=== PATIENT | female | born 1950 | race African-American/Black ===

== ENCOUNTER 2018-01-21 01:47 | Inpatient (IN) | payer MEDICARE ==
[2018-01-21] VITALS (9 sets, daily range): BP systolic 137–156; BP diastolic 54–92
[~2018-01-21] VITALS: Ht 175.3 cm; Wt 53.1 kg
--- NOTE | 2018-01-21 02:26 | Emergency Room Report ---
History of Present Illness General Chief Complaint: Altered Level of Consciousness Source: Patient Present Illness HPI 67-year-old female, history of Alzheimer disease, hypertension,? Psych history on Haldol, coming from home, brought by EMS, for being more altered than normal. EMS states that she has been more altered than her normal for 24 hours. Unknown baseline. She is currently awake alert oriented to person and place, does not know the time, and does not know why she is here. She is a poor historian. She keeps saying "I am dying". Denies any pain at this time Allergies: Coded Allergies: No Known Allergies (Unverified , 01/21/18) Patient History Past Medical History: see triage record Past Surgical History: none Pertinent Family History: none Last Menstrual Period: na Reviewed Nursing Documentation: PMH: Agreed, PSxH: Agreed Nursing Documentation-PMH Hx Diabetes: Yes History Of Psychiatric Problem: Yes - alzheimers Review of Systems All Other Systems: negative except mentioned in HPI Physical Exam Vital Signs Date Time Temp Pulse Resp B/P (MAP) Pulse Ox O2 Delivery O2 Flow Rate FiO2 01/21/18 01:49 97.5 116 18 142/59 100 Room Air 97.5 Sp02 EP Interpretation: reviewed, normal General Appearance: alert, mild distress, other - aox2 and confused. not in pain. Head: normocephalic, atraumatic Eyes: bilateral eye normal inspection, bilateral eye PERRL, bilateral eye EOMI ENT: normal ENT inspection, normal pharynx, normal voice, moist mucus membranes Neck: normal inspection, full range of motion, supple Respiratory: normal inspection, lungs clear, normal breath sounds, no respiratory distress, no retraction, no wheezing, speaking full sentences, chest symmetrical Cardiovascular #1: normal inspection, regular rate, rhythm, normal capillary refill Cardiovascular #2: 2+ radial (R), 2+ radial (L) Gastrointestinal: normal inspection, non tender, soft, non-distended, no guarding Musculoskeletal: normal inspection, back normal, normal range of motion, non- tender Neurologic: other - aox2, moves ext spont Psychiatric: other - anxious, confused Skin: normal inspection, normal color, no rash, warm/dry, well hydrated, normal turgor Medical Decision Making Diagnostic Impression: Primary Impression: Altered level of consciousness Additional Impression: Tachycardia ER Course 67-year-old female be more altered than her normal DDX: Infection, UTI, pneumonia, dehydration, electrolyte disturbance, progression of Alzheimer's disease Plan: Obtain labs, ua, EKG, CXR ER course: Patient has been monitored during ED stay, HD stable Patient has been very conversive during ED stay,talking to herself got 1L NS CT head neg Disposition: Patient is to be xferred to outside hosp [facility] hospitalist. Dr Godoy Please note that this Emergency Department Report was dictated using Globitelorchestra conductor technology software, occasionally this can lead to erroneous entry secondary to interpretation by the dictation equipment. EKG Diagnostic Results EP Interpretation: Yes Rate: tachy Rhythm: NSR ST Segments: No acute changes ASA given to patient: No Rhythm Strip EP Interpretation: Yes Rate: 122 Rhythm: NSR, no PVCs, no ectopy Chest X-ray CXR: Ordered: Yes 1 view Indication: Altered mental status EP interpretation: Yes Interpretation: No consolidation, no effusion, no PTX, no acute cardiopulmonary disease Impression: No acute disease Electronically signed by Bertrand Lopez MD Laboratory Tests Test 01/21/18 02:15 01/21/18 03:05 White Blood Count 7.0 K/UL (4.8-10.8) Red Blood Count 4.52 M/UL (4.20-5.40) Hemoglobin 12.5 G/DL (12.0-16.0) Hematocrit 38.4 % (37.0-47.0) Mean Corpuscular Volume 85 FL (80-99) Mean Corpuscular Hemoglobin 27.6 PG (27.0-31.0) Mean Corpuscular Hemoglobin Concent 32.5 G/DL (32.0-36.0) Red Cell Distribution Width 12.9 % (11.6-14.8) Platelet Count 203 K/UL (150-450) Mean Platelet Volume 9.1 FL (6.5-10.1) Neutrophils (%) (Auto) 59.1 % (45.0-75.0) Lymphocytes (%) (Auto) 27.2 % (20.0-45.0) Monocytes (%) (Auto) 12.7 % (1.0-10.0) H Eosinophils (%) (Auto) 0.0 % (0.0-3.0) Basophils (%) (Auto) 1.0 % (0.0-2.0) Sodium Level 141 MMOL/L (136-145) Potassium Level 3.3 MMOL/L (3.5-5.1) L Chloride Level 102 MMOL/L (98-107) Carbon Dioxide Level 27 MMOL/L (21-32) Anion Gap 13 mmol/L (5-15) Blood Urea Nitrogen 34 mg/dL (7-18) H Creatinine 1.4 MG/DL (0.55-1.30) H Estimate Glomerular Filtration Rate 45.8 mL/min (>60) Glucose Level 107 MG/DL (74-106) H Calcium Level 10.5 MG/DL (8.5-10.1) H Total Bilirubin 0.4 MG/DL (0.2-1.0) Aspartate Amino Transferase (AST) 19 U/L (15-37) Alanine Aminotransferase (ALT) 29 U/L (12-78) Alkaline Phosphatase 51 U/L (46-116) Troponin I 0.000 ng/mL (0.000-0.056) Pro-B-Type Natriuretic Peptide 369 pg/mL (0-125) H Total Protein 7.9 G/DL (6.4-8.2) Albumin 4.3 G/DL (3.4-5.0) Globulin 3.6 g/dL Albumin/Globulin Ratio 1.2 (1.0-2.7) Urine Color Yellow Urine Appearance Clear Urine pH 6 (4.5-8.0) Urine Specific [place] 1.010 (1.005-1.035) Urine Protein Negative (NEGATIVE) Urine Glucose (UA) Negative (NEGATIVE) Urine Ketones 1+ (NEGATIVE) H Urine Occult Blood Negative (NEGATIVE) Urine Nitrite Negative (NEGATIVE) Urine Bilirubin Negative (NEGATIVE) Urine Urobilinogen Normal MG/DL (0.0-1.0) Urine Leukocyte Esterase 1+ (NEGATIVE) H Urine RBC 0 /HPF (0 - 2) Urine WBC 0-2 /HPF (0 - 2) Urine Squamous Epithelial Cells Few /LPF (NONE/OCC) Urine Bacteria None /HPF (NONE) CT/MRI/US Diagnostic Results CT/MRI/US Diagnostic Results : Imaging Test Ordered: CT head Impression negative for acute findings Last Vital Signs Date Time Temp Pulse Resp B/P (MAP) Pulse Ox O2 Delivery O2 Flow Rate FiO2 01/21/18 01:49 97.5 116 18 142/59 100 Room Air 97.5 Disposition: XFER SHT-TRM HOSP Condition: Serious Referrals: [facility],REFERRING (PCP) Bertrand Lopez M.D. Jan 21, 2018 02:26
[2018-01-21 02:32] LABS: HEMATOCRIT 38.4 % (37.0-47.0); HEMOGLOBIN 12.5 G/DL (12.0-16.0); LYMPHOCYTES % (AUTO) 27.2 % (20.0-45.0); MEAN CORPUSCULAR VOLUME 85 FL (80-99); MONOCYTES % (AUTO) 12.7 % (1.0-10.0); NEUTROPHILS % (AUTO) 59.1 % (45.0-75.0); PLATELET COUNT 203 K/UL (150-450); RED BLOOD COUNT 4.52 M/UL (4.20-5.40); RED CELL DISTRIBUTION WIDTH 12.9 % (11.6-14.8)
[2018-01-21 02:41] LABS: ANION GAP 13 mmol/L (5-15); BLOOD UREA NITROGEN 34 mg/dL (7-18); CALCIUM 10.5 MG/DL (8.5-10.1); CARBON DIOXIDE 27 MMOL/L (21-32); CHLORIDE 102 MMOL/L (98-107); CREATININE 1.4 MG/DL (0.55-1.30); POTASSIUM 3.3 MMOL/L (3.5-5.1); SODIUM 141 MMOL/L (136-145)
[2018-01-21 02:52] LABS: ALANINE AMINOTRANSFERASE 29 U/L (12-78); ALBUMIN 4.3 G/DL (3.4-5.0); ALBUMIN/GLOBULIN RATIO 1.2 (1.0-2.7); ALKALINE PHOSPHATASE 51 U/L (46-116); ASPARTATE AMINO TRANSFERASE 19 U/L (15-37); BILIRUBIN,TOTAL 0.4 MG/DL (0.2-1.0)
[2018-01-21] MEDS ORDERED: LORazepam Inj 2mg/ml 1ml IV ONE ×3 (03:15→06:15)
[2018-01-21 03:20] LABS: APPEARANCE,URINE CLEAR; BILIRUBIN, URINE NEGATIVE (NEGATIVE); GLUCOSE, URINE (UA) NEGATIVE (NEGATIVE); KETONES,URINE 1+ (NEGATIVE); NITRITE,URINE NEGATIVE (NEGATIVE); PH,URINE 6 (4.5-8.0); PROTEIN,URINE NEGATIVE (NEGATIVE); UROBILINOGEN,URINE NORMAL MG/DL (0.0-1.0)
[2018-01-21 03:27] LABS: COLOR,URINE YELLOW; LEUKOCYTE ESTERASE ,URINE 1+ (NEGATIVE)
[2018-01-21] MEDS ORDERED: Haloperidol 5mg/ml Inj IM ONE (04:30)
[2018-01-21] MEDS ORDERED: NORVASC5 MG ORAL (05:54)
[2018-01-21] MEDS ORDERED: LYRICA75 M1 ORAL (05:54)
[2018-01-21] MEDS ORDERED: BENZTROPINE MESY2 MG ORAL (05:54)
[2018-01-21] MEDS ORDERED: COGENTIN1 MG ORAL (05:54)
[2018-01-21] MEDS ORDERED: ZOLOFT100 MG ORAL (05:54)
[2018-01-21] MEDS ORDERED: HALOPERIDOL1 MG ORAL (05:54)
[2018-01-21] MEDS ORDERED: MULTIVITAMINS1 EAC2 ORAL (05:54)
[2018-01-21] MEDS ORDERED: ATIVAN1 MG ORAL (05:54)
[2018-01-21] MEDS ORDERED: NAPROSYN500 M1 ORAL (05:54)
[2018-01-21] MEDS ORDERED: ACETAMINOPHEN-1 EAC1 ORAL (05:54)
[2018-01-21] MEDS ORDERED: VITAMIN D31000 UNI2 PO (05:54)
[2018-01-21] MEDS ORDERED: XALATAN2.5 ML BOTH EYES (05:54)
[2018-01-21] MEDS ORDERED: MIRALAX17 G2 ORAL (05:54)
[2018-01-21] MEDS ORDERED: OXYBUTYNIN CHLOR5 M1 ORAL (05:54)
[2018-01-21] MEDS ORDERED: KENALOG 0.025%15 GM APPLIC (05:54)
[2018-01-21] MEDS ORDERED: FOSAMAX70 MG ORAL (05:54)
[2018-01-21] MEDS ORDERED: DiphenhydrAMINE 50mg/ml Inj IVP ONE (06:15)
[2018-01-21] MEDS ORDERED: Tylenol #3 tab (300mg/30mg) ORAL PRN (10:00)
[2018-01-21] MEDS ORDERED: Miralax 17gm pkt ORAL PRN (10:00)
[2018-01-21] MEDS: Naproxen 500mg tab ORAL SCH ×2 (10:00→16:47)
--- NOTE | 2018-01-21 10:22 | Diagnostic Imaging Report ---
Indication: Altered mental status Technique: Contiguous 5 mm thick transaxial imaging of the head obtained in a Siemens Sensation [address] scanner. Soft tissue and bone windows generated. Automatic Exposure Control was utilized. Total Dose length Product (DLP): 1386.[address] Dose Index Volume (CTDIvol): 70.38 mGy Comparison: none Findings: The size and configuration of the cortical sulci, basal cisterns, and ventricles are within normal limits for age. There is no mass effect, midline shift, or edema identified. There is no evidence of acute hemorrhage or abnormal intra-axial or extra-axial fluid collections. The bones and soft tissues are unremarkable. Impression: No mass effect, edema or acute bleed. The CT scanner at [facility] is accredited by the [employer] and the scans are performed using dose optimization techniques as appropriate to a performed exam including Automatic Exposure control.
--- NOTE | 2018-01-21 10:46 | Diagnostic Imaging Report ---
Indication: Dyspnea Comparison: None A single view chest radiograph was obtained. Findings: Cardiomediastinal appearance is within normal limits for age. Chest patient is noted in the left hilum consistent with old granulomatous disease. Pulmonary vascularity is appropriate. The diaphragmatic contour is smooth and costophrenic angles are sharp. No pleural effusions are identified. The bones are osteopenic. Impression: No acute findings
[2018-01-21] MEDS: NovoLOG Insulin Flexpen SUBQ SCH ×3 (11:21→22:16)
--- NOTE | 2018-01-21 11:59 | Neurology Progress Note ---
Objective Physical Exam Last Vital Signs Date Time Temp Pulse Resp B/P (MAP) Pulse Ox O2 Delivery O2 Flow Rate FiO2 01/21/18 11:19 107 150/92 01/21/18 09:06 98.2 19 100 Room Air 98.2 Laboratory Tests Test 01/21/18 02:15 01/21/18 03:05 01/21/18 11:10 White Blood Count 7.0 K/UL (4.8-10.8) Red Blood Count 4.52 M/UL (4.20-5.40) Hemoglobin 12.5 G/DL (12.0-16.0) Hematocrit 38.4 % (37.0-47.0) Mean Corpuscular Volume 85 FL (80-99) Mean Corpuscular Hemoglobin 27.6 PG (27.0-31.0) Mean Corpuscular Hemoglobin Concent 32.5 G/DL (32.0-36.0) Red Cell Distribution Width 12.9 % (11.6-14.8) Platelet Count 203 K/UL (150-450) Mean Platelet Volume 9.1 FL (6.5-10.1) Neutrophils (%) (Auto) 59.1 % (45.0-75.0) Lymphocytes (%) (Auto) 27.2 % (20.0-45.0) Monocytes (%) (Auto) 12.7 % (1.0-10.0) H Eosinophils (%) (Auto) 0.0 % (0.0-3.0) Basophils (%) (Auto) 1.0 % (0.0-2.0) Sodium Level 141 MMOL/L (136-145) Potassium Level 3.3 MMOL/L (3.5-5.1) L Chloride Level 102 MMOL/L (98-107) Carbon Dioxide Level 27 MMOL/L (21-32) Anion Gap 13 mmol/L (5-15) Blood Urea Nitrogen 34 mg/dL (7-18) H Creatinine 1.4 MG/DL (0.55-1.30) H Estimat Glomerular Filtration Rate 45.8 mL/min (>60) Glucose Level 107 MG/DL (74-106) H Calcium Level 10.5 MG/DL (8.5-10.1) H Total Bilirubin 0.4 MG/DL (0.2-1.0) Aspartate Amino Transf (AST/SGOT) 19 U/L (15-37) Alanine Aminotransferase (ALT/SGPT) 29 U/L (12-78) Alkaline Phosphatase 51 U/L (46-116) Troponin I 0.000 ng/mL (0.000-0.056) 0.011 ng/mL (0.000-0.056) Pro-B-Type Natriuretic Peptide 369 pg/mL (0-125) H Pending Total Protein 7.9 G/DL (6.4-8.2) Albumin 4.3 G/DL (3.4-5.0) Globulin 3.6 g/dL Albumin/Globulin Ratio 1.2 (1.0-2.7) Urine Color Yellow Urine Appearance Clear Urine pH 6 (4.5-8.0) Urine Specific [place] 1.010 (1.005-1.035) Urine Protein Negative (NEGATIVE) Urine Glucose (UA) Negative (NEGATIVE) Urine Ketones 1+ (NEGATIVE) H Urine Occult Blood Negative (NEGATIVE) Urine Nitrite Negative (NEGATIVE) Urine Bilirubin Negative (NEGATIVE) Urine Urobilinogen Normal MG/DL (0.0-1.0) Urine Leukocyte Esterase 1+ (NEGATIVE) H Urine RBC 0 /HPF (0 - 2) Urine WBC 0-2 /HPF (0 - 2) Urine Squamous Epithelial Cells Few /LPF (NONE/OCC) Urine Bacteria None /HPF (NONE) Impression/Recommendations Recommendations #[id number] JOSE MARIA RAYA Jan 21, 2018 11:59
[2018-01-21] MEDS: Oxybutynin 5mg tab ORAL SCH ×2 (13:00→21:47)
--- NOTE | 2018-01-21 15:35 | History & Physical ---
History and Physical History & Physicial patient is seen and examined. Dictation completed Elvis Lofton MD Jan 21, 2018 15:35
--- NOTE | 2018-01-21 18:36 | Cardiology Progress Note ---
Assessment/Plan Assessment/Plan The patient is seen and examined, full consult note will be dictated shortly. Objective Last 24 Hour Vital Signs Date Time Temp Pulse Resp B/P (MAP) Pulse Ox O2 Delivery O2 Flow Rate FiO2 01/21/18 17:46 98.2 01/21/18 16:47 98.2 01/21/18 16:00 98.2 110 19 151/80 100 Room Air 98.2 01/21/18 15:12 114 01/21/18 12:00 98.0 112 19 156/69 100 Room Air 98.0 01/21/18 11:40 106 01/21/18 11:19 107 150/92 01/21/18 09:07 107 01/21/18 09:06 98.2 114 19 150/92 100 Room Air 98.2 01/21/18 08:00 98.2 114 19 150/92 100 Room Air 98.2 01/21/18 07:15 98.2 100 19 142/75 100 Room Air 98.2 01/21/18 06:43 107 24 137/61 100 Room Air 01/21/18 05:00 98.7 113 23 146/72 100 Room Air 98.7 01/21/18 03:30 116 21 145/58 100 Room Air 01/21/18 02:00 98.8 117 25 148/54 100 Room Air 98.8 01/21/18 01:49 97.5 116 18 142/59 100 Room Air 97.5 Laboratory Tests Test 01/21/18 02:15 01/21/18 03:05 01/21/18 11:10 White Blood Count 7.0 K/UL (4.8-10.8) Red Blood Count 4.52 M/UL (4.20-5.40) Hemoglobin 12.5 G/DL (12.0-16.0) Hematocrit 38.4 % (37.0-47.0) Mean Corpuscular Volume 85 FL (80-99) Mean Corpuscular Hemoglobin 27.6 PG (27.0-31.0) Mean Corpuscular Hemoglobin Concent 32.5 G/DL (32.0-36.0) Red Cell Distribution Width 12.9 % (11.6-14.8) Platelet Count 203 K/UL (150-450) Mean Platelet Volume 9.1 FL (6.5-10.1) Neutrophils (%) (Auto) 59.1 % (45.0-75.0) Lymphocytes (%) (Auto) 27.2 % (20.0-45.0) Monocytes (%) (Auto) 12.7 % (1.0-10.0) H Eosinophils (%) (Auto) 0.0 % (0.0-3.0) Basophils (%) (Auto) 1.0 % (0.0-2.0) Sodium Level 141 MMOL/L (136-145) Potassium Level 3.3 MMOL/L (3.5-5.1) L Chloride Level 102 MMOL/L (98-107) Carbon Dioxide Level 27 MMOL/L (21-32) Anion Gap 13 mmol/L (5-15) Blood Urea Nitrogen 34 mg/dL (7-18) H Creatinine 1.4 MG/DL (0.55-1.30) H Estimat Glomerular Filtration Rate 45.8 mL/min (>60) Glucose Level 107 MG/DL (74-106) H Calcium Level 10.5 MG/DL (8.5-10.1) H Total Bilirubin 0.4 MG/DL (0.2-1.0) Aspartate Amino Transf (AST/SGOT) 19 U/L (15-37) Alanine Aminotransferase (ALT/SGPT) 29 U/L (12-78) Alkaline Phosphatase 51 U/L (46-116) Troponin I 0.000 ng/mL (0.000-0.056) 0.011 ng/mL (0.000-0.056) Pro-B-Type Natriuretic Peptide 369 pg/mL (0-125) H 621 pg/mL (0-125) H Total Protein 7.9 G/DL (6.4-8.2) Albumin 4.3 G/DL (3.4-5.0) Globulin 3.6 g/dL Albumin/Globulin Ratio 1.2 (1.0-2.7) Urine Color Yellow Urine Appearance Clear Urine pH 6 (4.5-8.0) Urine Specific [place] 1.010 (1.005-1.035) Urine Protein Negative (NEGATIVE) Urine Glucose (UA) Negative (NEGATIVE) Urine Ketones 1+ (NEGATIVE) H Urine Occult Blood Negative (NEGATIVE) Urine Nitrite Negative (NEGATIVE) Urine Bilirubin Negative (NEGATIVE) Urine Urobilinogen Normal MG/DL (0.0-1.0) Urine Leukocyte Esterase 1+ (NEGATIVE) H Urine RBC 0 /HPF (0 - 2) Urine WBC 0-2 /HPF (0 - 2) Urine Squamous Epithelial Cells Few /LPF (NONE/OCC) Urine Bacteria None /HPF (NONE) TAURUS VASQUEZ Jan 21, 2018 18:36
[2018-01-21] MEDS ORDERED: Flu Vaccine Quadrivalent 0.5ml IM ONE (20:00)
--- NOTE | 2018-01-21 20:45 | Consultation ---
DATE OF CONSULTATION: 01/21/2018 NEUROLOGICAL CONSULTATION CONSULTING PHYSICIAN: Guillermo Burns M.D. REQUESTING PHYSICIAN: Will Donohue M.D. HISTORY OF PRESENT ILLNESS: The patient is a 67 years old female, resident of nursing care facility, was brought to this hospital after she was noted to be being more altered than normal. According to the family, the patient has been suffering from dementia, but in the last 24 hours, she became more confused, more altered. She did not complain of any chest pains or shortness of breath. No nausea or vomiting. In the field, her blood pressure 140/80. Upon arrival to the hospital, heart rate was 116 but, she was afebrile with blood pressure 142/59. The patient described as being alert, oriented to name and place, but not knowing the time and she was quite poor historian. She keeps repeating that she is dying. Her EKG normal sinus rhythm, no PVC, no ectopy noted. Chest x-ray, no acute disease. Laboratory work was obtained, this revealed a normal CBC study, but chemistry panel with calcium 10.5, BUN 34, and creatinine 1.4 with BNP of 369. Normal troponin. Urinalysis, 1+ leukocyte esterase. Imaging studies included CT of the brain and this revealed no acute intracranial abnormalities. Following admission until present, the patient very confused, disoriented, refusing meals, and continued to be with urinary incontinence. PAST MEDICAL HISTORY: Incomplete. Apparently, the patient has a history of hypertension, hyperlipidemia, behavioral abnormalities, and urinary incontinence. MEDICATIONS: Treatment list prior to admission included Tylenol No. 3 p.r.n. but also Fosamax, Norvasc, Cogentin 2 mg b.i.d., vitamin D, Haldol 2 mg daily, Ativan 1 mg b.i.d., Naprosyn 500 mg b.i.d., oxybutynin, MiraLAX, Lyrica 75 mg daily, and Zoloft. ALLERGIES: None reported. SOCIAL HISTORY: No evidence of alcohol or drug abuse. Nonsmoker. PHYSICAL EXAMINATION: GENERAL: This is a well-developed and well-nourished elderly female, lying in bed with a sitter at bedside. VITAL SIGNS: Now include blood pressure 150/92, heart rate of 107, and she is afebrile. HEENT: Head is normocephalic. There is no evidence of trauma. Eyes, ears, and throat are clear. NECK: Slightly rigid. The patient is maintaining somewhat flexed neck . EXTREMITIES: Upper and lower extremities without clubbing, cyanosis, or edema. Peripheral pulses 1+ symmetric. MENTAL STATUS: The patient is alert, but has poor attention. She was able to give her name, but not age, place, or time. She was unable to provide with any medical history. She was confused and disoriented. She was able to follow simple commands. CRANIAL NERVE II: Pupils both responding to light and accommodation. Extraocular movements intact. No nystagmus. CRANIAL NERVE V: Normal corneal responses. CRANIAL NERVE VII: No facial asymmetry. CRANIAL NERVE VIII: Grossly normal hearing. CRANIAL NERVE IX THROUGH XII: Within normal limits. MOTOR EXAMINATION: Diffuse rigidity, but strength appears normal, 5/5 in all extremities. There is a fine resting tremor of both hands. Deep tendon reflexes 1+ symmetric with downgoing toes on both sides. SENSORY EXAMINATION: Normal to pinprick and light touch. GAIT: Not tested. GENITOURINARY: The patient has urinary incontinence. IMPRESSION: 1. Senile dementia with behavioral abnormalities, advanced. 2. Hypertension. 3. Sinus tachycardia. RECOMMENDATIONS: The patient will continue with psychiatric treatment. The patient to be observed for any paroxysmal activities. There is no evidence of lateralizing neurological deficit. No evidence of seizures or stroke at this time noted. We will obtain physical therapy for mobility protocol. Laboratory work will include B12, folate, thyroid function, HEATHER, and sedimentation rate. Recheck renal function. Continue with p.o. hydration. Thank you for allowing me to see this interesting patient in neurological consultation. Guillermo Burns M.D. DR: Nikki JOB#: [id number] CC:
[2018-01-21] MEDS: Latanoprost 0.005% Opth 2.5ml Soln BOTH EYES SCH (21:00)
--- NOTE | 2018-01-21 21:30 | History and Physical Report ---
DATE OF ADMISSION: 01/21/2018 SOURCE OF INFORMATION: EMR. HISTORY OF PRESENT ILLNESS: The patient is a 67-year-old female, presented with the change in mental status. At the time of evaluation, the patient is not talking in full sentences, although she is awake and she appears comfortable. Based on the review of the emergency room documentation, the patient was transferred by the EMS regarding the change in her mental status. Baseline of the patient is unknown. At the time of evaluation, the patient is just talking in limited words. PAST MEDICAL HISTORY: Past medical history including, but not limited to, dementia, Alzheimer's type; hypertension and psychiatric history. PAST SURGICAL HISTORY: Denies. MEDICATIONS: Current hospital medications including, but not limited to [place], alendronate, amlodipine, Cogentin, lorazepam, naproxen, gabapentin and sertraline. ALLERGIES: NKDA. FAMILY HISTORY: Reviewed, noncontributory. REVIEW OF SYSTEMS: Unobtainable, please see the history of present illness. PHYSICAL EXAMINATION: VITAL SIGNS: Blood pressure 150/80, pulse oximetry 98% on room air, temperature 98.2 degrees and pulse rate 100-115. HEAD AND NECK: Atraumatic and normocephalic. CHEST: Clear to auscultation. No wheezing. No crackles. ABDOMEN: Soft. No organomegaly. No tenderness. MUSCULOSKELETAL: Atrophied musculatures. NEUROLOGY: Cranial nerves intact. Poor historian, AO x1. LABORATORY AND DIAGNOSTIC DATA: Labs dated 01/21/2018 shows WBC 7, hemoglobin of 12.5, and platelets 203,000. Sodium 141, potassium 3.3, BUN 34, and creatinine 1.4. Troponin times x2 negative. BNP 620. Urinalysis unremarkable. ASSESSMENT: 1. Encephalopathy. 2. Dementia - Alzheimer's type. 3. Renal failure - age indeterminate. 4. Hypercalcemia. 5. Abnormal blood sugar. 6. Hypokalemia. 7. Abnormal serum BNP. 8. Deconditioning. 9. Psychiatric disorder. PLAN OF CARE: We consulted the psychiatrist, neurologist and bean roaster, Dr. Tucker. We will hold on the psychotropic medication at this time. The patient's brain CT scan is unremarkable. Elvis Lofton M.D. DR: APOLONIA JOB#: [id number] CC: JOSUÉ
--- NOTE | 2018-01-21 21:30 | Consultation ---
DATE OF CONSULTATION: 01/21/2018 CONSULTING PHYSICIAN: Ender Alvarez M.D. HISTORY OF PRESENT ILLNESS: The patient is a 67-year-old female with history of Alzheimer and hypertension, who has been admitted to the hospital for medical stabilization. The patient has history of agitation and anxiety. During the evaluation, the patient only was oriented to self, was unable to provide any history. PAST PSYCHIATRIC HISTORY: The patient has a history of psychotic disorder and dementia, has been on antipsychotics. ALLERGIES: No known drug allergies. SUBSTANCE ABUSE HISTORY: No history of illicit drug use or alcohol. MENTAL STATUS EXAMINATION: The patient is confused and disoriented. Mood is agitated. Affect is constricted, congruent with mood. Thought process is concrete. Thought content, no suicidal or homicidal ideations. ASSESSMENT: [place] I Dementia with behavior disturbance. [place] II Deferred. [place] III As above. [place] IV Low. [place] V Global assessment of functioning is 20. PLAN: 1. We will start the patient on Seroquel 25 mg every four hours p.r.n. with anxiety and agitation. We will discontinue the Ativan. 2. We will continue to follow and readjust the medications. Ender Alvarez M.D. DR: Bob JOB#: [id number] CC:
[2018-01-21] MEDS: Heparin 5000 units/ml inj SUBQ SCH (21:50)
[2018-01-22] VITALS: BP 145/84
--- NOTE | 2018-01-22 01:00 | Consultation ---
DATE OF CONSULTATION: 01/21/2018 CARDIOLOGY CONSULTATION CONSULTING PHYSICIAN: Rei Tucker M.D. REFERRING PHYSICIAN: Elvis Lofton M.D. REASON FOR CONSULTATION: Management of tachycardia. HISTORY OF PRESENT ILLNESS: The patient is a very pleasant 67-year-old lady, who is brought in by RA 68 from home complaining of progressive worsening of altered level of consciousness according to the patient's sons. The patient has history of Alzheimer's, however, the level of consciousness has not been this bad. At the time of arrival to the emergency department, the patient had a blood pressure of 142/59 and her heart rate was 116. A 12-lead electrocardiogram revealed sinus tachycardia rate of 118, but there was no ST and T-wave abnormalities to suggest ischemia. Her QT interval was prolonged as well. The patient had 2D echocardiography, which revealed normal LV systolic function with LVEF of 60% to 65%, evidence of mild mitral regurgitation, and grade 1 LV diastolic dysfunction. Her right ventricular systolic pressure was measured at approximately 41 mm Hg consistent with mild pulmonary hypertension. The patient was admitted to telemetry. Cardiology consultation was made at request of Dr. Lofton for and management of tachycardia. PAST MEDICAL HISTORY: 1. Alzheimer's dementia. 2. Diabetes mellitus. 3. Psychiatric problems. PAST SURGICAL HISTORY: None. ALLERGIES: No known drug allergies. MEDICATIONS: List of medications including acetaminophen No. 3 with codeine one tablet p.o. q.8 h. p.r.n. pain, Fosamax 70 mg p.o. once a week, Norvasc 5 mg p.o. daily, Cogentin 1 mg two tablets daily, benztropine mesylate 2 mg twice daily, vitamin D3 1000 units p.o. daily, Haldol 2 mg p.o. daily, Xalatan eye drops to both eyes, Ativan 1 mg p.o. twice daily, multivitamin one tablet p.o. daily, Naprosyn 500 mg twice daily, oxybutynin chloride 5 mg p.o. daily, MiraLAX 17 g p.o. daily, Lyrica mg p.o. daily, Zoloft 100 mg p.o. daily, and triamcinolone cream to apply twice daily. FAMILY HISTORY: No premature coronary artery disease in first-degree relatives. REVIEW OF SYSTEMS: A 12-system review done essentially negative except what mentioned in the history of present illness. PHYSICAL EXAMINATION: GENERAL: The patient is a very unfortunate 67-year-old female, who appears to have flat affect. Answering to some of my simple questions appropriately and in no apparent respiratory distress. VITAL SIGNS: Blood pressure at the time of arrival to the hospital was 142/59, pulse of 116, respirations of 18, temperature 97.5 degrees Fahrenheit, and O2 saturation 100% on room air. HEENT: Atraumatic and normocephalic. Anicteric. Pupils are equal, round, and reactive to light and accommodation. Extraocular muscles intact. NECK: JVP is less than 5 cm. No carotid bruits. Carotid upstrokes 2+ bilaterally. CARDIOVASCULAR: Normal S1 and S2. Regular rate and rhythm. Tachycardic. No murmurs, gallops, or rubs. PMI is at the fourth intercostal space in the midclavicular line. LUNGS: Clear to auscultation bilaterally. ABDOMEN: Soft, nontender, and nondistended. No hepatosplenomegaly. Positive bowel sounds. EXTREMITIES: No evidence of edema, clubbing, or cyanosis. LABORATORY AND DIAGNOSTIC DATA: WBC 7.0, hemoglobin of 12.5, hematocrit of 38.4, and platelet count is 203. Sodium is 141, potassium is 3.3, chloride 102, bicarbonate 27, BUN of 34, creatinine is 1.4, and glucose is 107. Calcium is 10.5. Troponin I x2 negative. ProBNP was 369 followed by 621. ASSESSMENT AND PLAN: The patient is a very unfortunate 67-year-old female, seen in Cardiology consultation at the request of Dr. Lofton. 1. Sinus tachycardia, the etiology of which is unknown at this point. I would like to obtain thyroid function tests. The patient does not appear to be in heart failure. Review of CBC shows no evidence of anemia. Saturation within normal limits. I would like to obtain 2D echocardiography. It is not compatible with pulmonary embolism. We will continue monitoring the patient on the telemetry unit. The treatment of sinus tachycardia is to eradication of the underlying etiology. We will make the patient to be well hydrated. There is some signs of prerenal azotemia. Encourage p.o. fluids. We will continue measuring creatinine on a daily basis. 2. Normal LV systolic function with LVEF of approximately 60% to 65%. 3. Mild pulmonary hypertension. I would like to thank, Dr. Lofton, for the courtesy of this consultation. Rei Tucker M.D. DR: DAGMAR JOB#: [id number] CC:
[2018-01-22 04:00] VITALS: BP 151/97
[2018-01-22] MEDS: NovoLOG Insulin Flexpen SUBQ SCH ×4 (06:30→20:55)
[2018-01-22] MEDS: Oxybutynin 5mg tab ORAL SCH ×3 (06:45→21:03)
[2018-01-22 08:00] VITALS: BP 147/91
[2018-01-22 08:03] LABS: BASOPHILS % (AUTO) 0.5 % (0.0-2.0); HEMATOCRIT 42.6 % (37.0-47.0); HEMOGLOBIN 14.1 G/DL (12.0-16.0); LYMPHOCYTES % (AUTO) 13.8 % (20.0-45.0); MEAN CORPUSCULAR VOLUME 86 FL (80-99); MONOCYTES % (AUTO) 9.5 % (1.0-10.0); NEUTROPHILS % (AUTO) 76.2 % (45.0-75.0); PLATELET COUNT 199 K/UL (150-450); RED BLOOD COUNT 4.97 M/UL (4.20-5.40); RED CELL DISTRIBUTION WIDTH 13.3 % (11.6-14.8); WHITE BLOOD COUNT 8.7 K/UL (4.8-10.8)
[2018-01-22 08:26] LABS: ALANINE AMINOTRANSFERASE 33 U/L (12-78); ALKALINE PHOSPHATASE 51 U/L (46-116); ANION GAP 9 mmol/L (5-15); ASPARTATE AMINO TRANSFERASE 29 U/L (15-37); BILIRUBIN,TOTAL 0.5 MG/DL (0.2-1.0); BLOOD UREA NITROGEN 18 mg/dL (7-18); CALCIUM 10.7 MG/DL (8.5-10.1); CARBON DIOXIDE 28 MMOL/L (21-32); CHLORIDE 108 MMOL/L (98-107); CREATININE 1.2 MG/DL (0.55-1.30); SODIUM 145 MMOL/L (136-145)
[2018-01-22] MEDS: Vitamin D 1000 IU Tab ORAL SCH (09:01)
[2018-01-22] MEDS: Heparin 5000 units/ml inj SUBQ SCH ×2 (09:03→20:59)
[2018-01-22 12:00] VITALS: BP 129/99
--- NOTE | 2018-01-22 12:53 | Internal Med Progress Note ---
Subjective Date of Service: Jan 22, 2018 Physician Name Carpenter,Cain Attending Physician Elvis Lofton MD Current Medications Medications (Trade) Dose Ordered Sig/Dae Route PRN Reason Start Time Stop Time Status Last Admin Dose Admin Acetaminophen (Tylenol) 650 mg Q4H PRN ORAL Mild Pain/Temp > 100.5 01/21/18 10:00 02/20/18 09:59 Acetaminophen/ Codeine Phosphate (Tylenol #3) 1 tab Q8HR PRN ORAL MOD-SEVERE PAIN 01/21/18 10:00 01/28/18 09:59 Alendronate Sodium (Fosamax) 70 mg QWEEK ORAL 01/21/18 10:00 02/20/18 09:59 UNV Amlodipine Besylate (Norvasc) 5 mg DAILY ORAL 01/21/18 10:00 02/20/18 09:59 01/22/18 09:02 Dextrose (Dextrose 50%) STAT PRN IV Hypoglycemia 01/21/18 10:00 02/20/18 09:59 Heparin Sodium (Porcine) (Heparin 5000 units/ml) 5,000 units EVERY 12 HOURS SUBQ 01/21/18 21:00 02/20/18 20:59 01/22/18 09:03 Insulin Aspart (NovoLOG) BEFORE MEALS AND HS SUBQ 01/21/18 11:30 02/20/18 11:29 01/21/18 22:16 Latanoprost (Xalatan) 1 drop BEDTIME BOTH EYES 01/21/18 21:00 02/20/18 20:59 Multivitamins (Multivitamins) 1 tab DAILY ORAL 01/21/18 10:00 02/20/18 09:59 01/22/18 09:01 Oxybutynin Chloride (Ditropan) 5 mg Q8HR ORAL 01/21/18 14:00 02/20/18 13:59 01/22/18 06:45 Polyethylene Glycol (Miralax) 17 gm DAILY PRN ORAL CONSTIPATION 01/21/18 10:00 02/20/18 09:59 Quetiapine Fumarate (SEROquel) 12.5 mg BID ORAL 01/21/18 18:00 02/20/18 17:59 01/22/18 09:02 Quetiapine Fumarate (SEROquel) 25 mg EVERY 4 HOURS PRN ORAL agitation 01/21/18 15:45 02/20/18 15:44 Vitamin D (Vitamin D) 1,000 intlu DAILY ORAL 01/22/18 09:00 02/21/18 08:59 01/22/18 09:01 Allergies: Coded Allergies: No Known Allergies (Unverified , 01/21/18) ROS Limited/Unobtainable: Yes Subjective 67 YO F admitted with altered mental status. Confused. Answer to what day is it="CHASTITY". Sitter at bedside. Cover for Int Med-Dr Lofton. Objective Last Vital Signs Date Time Temp Pulse Resp B/P (MAP) Pulse Ox O2 Delivery O2 Flow Rate FiO2 01/22/18 09:02 110 147/91 01/22/18 08:00 97.3 18 100 97.3 01/21/18 16:00 Room Air General Appearance: WD/WN, no apparent distress, alert EENT: PERRL/EOMI, normal ENT inspection Neck: non-tender, normal alignment, supple, normal inspection Cardiovascular: regular rhythm, no gallop/murmur, no JVD, tachycardia Respiratory/Chest: chest wall non-tender, lungs clear, normal breath sounds, no respiratory distress, no accessory muscle use Abdomen: normal bowel sounds, non tender, soft, no organomegaly, no mass Extremities: normal range of motion, non-tender Neurologic: speech lang path therapist II-XII grossly normal, no motor/sensory deficits Skin: normal pigmentation, warm/dry Laboratory Tests Test 01/22/18 06:00 White Blood Count 8.7 K/UL (4.8-10.8) Red Blood Count 4.97 M/UL (4.20-5.40) Hemoglobin 14.1 G/DL (12.0-16.0) Hematocrit 42.6 % (37.0-47.0) Mean Corpuscular Volume 86 FL (80-99) Mean Corpuscular Hemoglobin 28.3 PG (27.0-31.0) Mean Corpuscular Hemoglobin Concent 33.0 G/DL (32.0-36.0) Red Cell Distribution Width 13.3 % (11.6-14.8) Platelet Count 199 K/UL (150-450) Mean Platelet Volume 9.1 FL (6.5-10.1) Neutrophils (%) (Auto) 76.2 % (45.0-75.0) H Lymphocytes (%) (Auto) 13.8 % (20.0-45.0) L Monocytes (%) (Auto) 9.5 % (1.0-10.0) Eosinophils (%) (Auto) 0.0 % (0.0-3.0) Basophils (%) (Auto) 0.5 % (0.0-2.0) Sodium Level 145 MMOL/L (136-145) Potassium Level 4.0 MMOL/L (3.5-5.1) Chloride Level 108 MMOL/L (98-107) H Carbon Dioxide Level 28 MMOL/L (21-32) Anion Gap 9 mmol/L (5-15) Blood Urea Nitrogen 18 mg/dL (7-18) Creatinine 1.2 MG/DL (0.55-1.30) Estimat Glomerular Filtration Rate 54.7 mL/min (>60) Glucose Level 99 MG/DL (74-106) Calcium Level 10.7 MG/DL (8.5-10.1) H Total Bilirubin 0.5 MG/DL (0.2-1.0) Aspartate Amino Transf (AST/SGOT) 29 U/L (15-37) Alanine Aminotransferase (ALT/SGPT) 33 U/L (12-78) Alkaline Phosphatase 51 U/L (46-116) Total Protein 8.0 G/DL (6.4-8.2) Albumin 4.0 G/DL (3.4-5.0) Globulin 4.0 g/dL Albumin/Globulin Ratio 1.0 (1.0-2.7) Intake and Output 01/21/18 01/22/18 19:00 07:00 # Voids 3 # Bowel Movements 2 Assessment/Plan Problem List: (1) Altered mental status (2) Confused Assessment & Plan: ?psychosis?-see psych note. (3) Elevated brain natriuretic peptide (BNP) level Assessment & Plan: See cardiology note. (4) Hypertension Assessment & Plan: Continue amlodipine. (5) Alzheimer's dementia (6) Tachycardia Assessment & Plan: Unknown etiology. See cardiology Note Status: not improved CAIN CARPENTER Jan 22, 2018 12:53
[2018-01-22 16:00] VITALS: BP 130/82
[2018-01-22 20:01] VITALS: BP 132/79
[2018-01-22] MEDS: Latanoprost 0.005% Opth 2.5ml Soln BOTH EYES SCH (20:56)
--- NOTE | 2018-01-22 23:04 | Cardiology Progress Note ---
Assessment/Plan Assessment/Plan 1. Sinus tachycardia, continue hydration, no e/o hyperthyroidism, echo reveals normal LV systolic function with normal intracardiac filling pressure. 2. Normal LV systolic function with LVEF of approximately 60% to 65%. 3. Mild pulmonary hypertension. Subjective Subjective Sinus tachycardia at 105. Objective Last 24 Hour Vital Signs Date Time Temp Pulse Resp B/P (MAP) Pulse Ox O2 Delivery O2 Flow Rate FiO2 01/22/18 20:01 97.6 98 18 132/79 97 Room Air 97.6 01/22/18 20:00 104 01/22/18 16:00 98.2 109 19 130/82 98 Room Air 98.2 01/22/18 16:00 98.2 109 19 130/82 98 98.2 01/22/18 16:00 127 01/22/18 12:00 97.9 136 19 129/99 98 97.9 01/22/18 12:00 136 01/22/18 09:02 110 147/91 01/22/18 08:00 124 01/22/18 08:00 97.3 110 18 147/91 100 97.3 01/22/18 04:00 128 01/22/18 04:00 97.7 113 18 151/97 100 97.7 01/22/18 00:00 97.7 125 18 145/84 97 97.7 01/22/18 00:00 119 Intake and Output 01/21/18 01/22/18 19:00 07:00 # Voids 3 # Bowel Movements 2 2D Echo: LVEF 65%, Grade I LVDD, Mild-Mod MR, RVSP 41 mmHg, Laboratory Tests Test 01/22/18 06:00 White Blood Count 8.7 K/UL (4.8-10.8) Red Blood Count 4.97 M/UL (4.20-5.40) Hemoglobin 14.1 G/DL (12.0-16.0) Hematocrit 42.6 % (37.0-47.0) Mean Corpuscular Volume 86 FL (80-99) Mean Corpuscular Hemoglobin 28.3 PG (27.0-31.0) Mean Corpuscular Hemoglobin Concent 33.0 G/DL (32.0-36.0) Red Cell Distribution Width 13.3 % (11.6-14.8) Platelet Count 199 K/UL (150-450) Mean Platelet Volume 9.1 FL (6.5-10.1) Neutrophils (%) (Auto) 76.2 % (45.0-75.0) H Lymphocytes (%) (Auto) 13.8 % (20.0-45.0) L Monocytes (%) (Auto) 9.5 % (1.0-10.0) Eosinophils (%) (Auto) 0.0 % (0.0-3.0) Basophils (%) (Auto) 0.5 % (0.0-2.0) Sodium Level 145 MMOL/L (136-145) Potassium Level 4.0 MMOL/L (3.5-5.1) Chloride Level 108 MMOL/L (98-107) H Carbon Dioxide Level 28 MMOL/L (21-32) Anion Gap 9 mmol/L (5-15) Blood Urea Nitrogen 18 mg/dL (7-18) Creatinine 1.2 MG/DL (0.55-1.30) Estimat Glomerular Filtration Rate 54.7 mL/min (>60) Glucose Level 99 MG/DL (74-106) Calcium Level 10.7 MG/DL (8.5-10.1) H Total Bilirubin 0.5 MG/DL (0.2-1.0) Aspartate Amino Transf (AST/SGOT) 29 U/L (15-37) Alanine Aminotransferase (ALT/SGPT) 33 U/L (12-78) Alkaline Phosphatase 51 U/L (46-116) Total Protein 8.0 G/DL (6.4-8.2) Albumin 4.0 G/DL (3.4-5.0) Globulin 4.0 g/dL Albumin/Globulin Ratio 1.0 (1.0-2.7) Objective HEENT: Atraumatic and normocephalic. Anicteric. Pupils are equal, round, and reactive to light and accommodation. Extraocular muscles intact. NECK: JVP is less than 5 cm. No carotid bruits. Carotid upstrokes 2+ bilaterally. CARDIOVASCULAR: Normal S1 and S2. Regular rate and rhythm. Tachycardic. No murmurs, gallops, or rubs. PMI is at the fourth intercostal space in the midclavicular line. LUNGS: Clear to auscultation bilaterally. ABDOMEN: Soft, nontender, and nondistended. No hepatosplenomegaly. Positive bowel sounds. EXTREMITIES: No evidence of edema, clubbing, or cyanosis. TAURUS VASQUEZ Jan 22, 2018 23:04
[2018-01-23 00:19] VITALS: BP 128/64
[2018-01-23 04:21] VITALS: BP 136/75
[2018-01-23 04:23] VITALS: BP 136/75
[2018-01-23] MEDS: NovoLOG Insulin Flexpen SUBQ SCH ×4 (06:30→21:00)
[2018-01-23] MEDS: Oxybutynin 5mg tab ORAL SCH ×3 (06:51→21:47)
[2018-01-23] MEDS: Vitamin D 1000 IU Tab ORAL SCH (09:00)
[2018-01-23] MEDS: Heparin 5000 units/ml inj SUBQ SCH ×2 (09:00→21:48)
[2018-01-23 09:12] LABS: BASOPHILS % (AUTO) 0.6 % (0.0-2.0); HEMATOCRIT 42.9 % (37.0-47.0); MEAN CORPUSCULAR VOLUME 86 FL (80-99); MONOCYTES % (AUTO) 11.1 % (1.0-10.0); NEUTROPHILS % (AUTO) 72.3 % (45.0-75.0); PLATELET COUNT 204 K/UL (150-450); RED BLOOD COUNT 5.02 M/UL (4.20-5.40); RED CELL DISTRIBUTION WIDTH 13.2 % (11.6-14.8); WHITE BLOOD COUNT 10.2 K/UL (4.8-10.8)
[2018-01-23 09:51] LABS: ALANINE AMINOTRANSFERASE 31 U/L (12-78); ALBUMIN 3.7 G/DL (3.4-5.0); ALBUMIN/GLOBULIN RATIO 0.9 (1.0-2.7); ALKALINE PHOSPHATASE 59 U/L (46-116); ANION GAP 12 mmol/L (5-15); ASPARTATE AMINO TRANSFERASE 23 U/L (15-37); BILIRUBIN,TOTAL 0.6 MG/DL (0.2-1.0); BLOOD UREA NITROGEN 30 mg/dL (7-18); CALCIUM 10.4 MG/DL (8.5-10.1); CARBON DIOXIDE 25 MMOL/L (21-32); CHLORIDE 102 MMOL/L (98-107); POTASSIUM 4.4 MMOL/L (3.5-5.1); SODIUM 139 MMOL/L (136-145)
--- NOTE | 2018-01-23 12:35 | Internal Med Progress Note ---
Subjective Date of Service: Jan 23, 2018 Physician Name Carpenter,Cain Attending Physician Elvis Lofton MD Current Medications Medications (Trade) Dose Ordered Sig/Dae Route PRN Reason Start Time Stop Time Status Last Admin Dose Admin Acetaminophen (Tylenol) 650 mg Q4H PRN ORAL Mild Pain/Temp > 100.5 01/21/18 10:00 02/20/18 09:59 Acetaminophen/ Codeine Phosphate (Tylenol #3) 1 tab Q8HR PRN ORAL MOD-SEVERE PAIN 01/21/18 10:00 01/28/18 09:59 Alendronate Sodium (Fosamax) 70 mg QWEEK ORAL 01/28/18 06:30 02/27/18 06:29 Amlodipine Besylate (Norvasc) 5 mg DAILY ORAL 01/21/18 10:00 02/20/18 09:59 01/22/18 09:02 Dextrose (Dextrose 50%) STAT PRN IV Hypoglycemia 01/21/18 10:00 02/20/18 09:59 Heparin Sodium (Porcine) (Heparin 5000 units/ml) 5,000 units EVERY 12 HOURS SUBQ 01/21/18 21:00 02/20/18 20:59 01/22/18 20:59 Insulin Aspart (NovoLOG) BEFORE MEALS AND HS SUBQ 01/21/18 11:30 02/20/18 11:29 01/22/18 16:07 Latanoprost (Xalatan) 1 drop BEDTIME BOTH EYES 01/21/18 21:00 02/20/18 20:59 Multivitamins (Multivitamins) 1 tab DAILY ORAL 01/21/18 10:00 02/20/18 09:59 01/22/18 09:01 Oxybutynin Chloride (Ditropan) 5 mg Q8HR ORAL 01/21/18 14:00 02/20/18 13:59 01/23/18 06:51 Polyethylene Glycol (Miralax) 17 gm DAILY PRN ORAL CONSTIPATION 01/21/18 10:00 02/20/18 09:59 Quetiapine Fumarate (SEROquel) 12.5 mg BID ORAL 01/21/18 18:00 02/20/18 17:59 01/22/18 17:08 Quetiapine Fumarate (SEROquel) 25 mg EVERY 4 HOURS PRN ORAL agitation 01/21/18 15:45 02/20/18 15:44 01/23/18 06:58 Vitamin D (Vitamin D) 1,000 intlu DAILY ORAL 01/22/18 09:00 02/21/18 08:59 01/22/18 09:01 Allergies: Coded Allergies: No Known Allergies (Unverified , 01/21/18) ROS Limited/Unobtainable: Yes Subjective 67 YO F admitted with altered mental status. Confused. Refusing vitals and medications. Sitter at bedside. Cover for Int Med-Dr Lofton. Objective Last Vital Signs Date Time Temp Pulse Resp B/P (MAP) Pulse Ox O2 Delivery O2 Flow Rate FiO2 01/23/18 08:00 117 01/23/18 04:23 97.7 18 136/75 97 Room Air 97.7 Laboratory Tests Test 01/23/18 06:15 White Blood Count 10.2 K/UL (4.8-10.8) Red Blood Count 5.02 M/UL (4.20-5.40) Hemoglobin 14.0 G/DL (12.0-16.0) Hematocrit 42.9 % (37.0-47.0) Mean Corpuscular Volume 86 FL (80-99) Mean Corpuscular Hemoglobin 27.9 PG (27.0-31.0) Mean Corpuscular Hemoglobin Concent 32.7 G/DL (32.0-36.0) Red Cell Distribution Width 13.2 % (11.6-14.8) Platelet Count 204 K/UL (150-450) Mean Platelet Volume 9.1 FL (6.5-10.1) Neutrophils (%) (Auto) 72.3 % (45.0-75.0) Lymphocytes (%) (Auto) 16.0 % (20.0-45.0) L Monocytes (%) (Auto) 11.1 % (1.0-10.0) H Eosinophils (%) (Auto) 0.0 % (0.0-3.0) Basophils (%) (Auto) 0.6 % (0.0-2.0) Sodium Level 139 MMOL/L (136-145) Potassium Level 4.4 MMOL/L (3.5-5.1) Chloride Level 102 MMOL/L (98-107) Carbon Dioxide Level 25 MMOL/L (21-32) Anion Gap 12 mmol/L (5-15) Blood Urea Nitrogen 30 mg/dL (7-18) H Creatinine 3.0 MG/DL (0.55-1.30) #H Estimat Glomerular Filtration Rate 19.0 mL/min (>60) Glucose Level 85 MG/DL (74-106) Calcium Level 10.4 MG/DL (8.5-10.1) H Total Bilirubin 0.6 MG/DL (0.2-1.0) Aspartate Amino Transf (AST/SGOT) 23 U/L (15-37) Alanine Aminotransferase (ALT/SGPT) 31 U/L (12-78) Alkaline Phosphatase 59 U/L (46-116) Total Protein 7.9 G/DL (6.4-8.2) Albumin 3.7 G/DL (3.4-5.0) Globulin 4.2 g/dL Albumin/Globulin Ratio 0.9 (1.0-2.7) L Intake and Output 01/22/18 01/23/18 19:00 07:00 Intake Total 720 ml Output Total 300 ml Balance 720 ml -300 ml Intake Oral 720 ml Output Urine Total 300 ml # Voids 4 # Bowel Movements 1 1 Objective General Appearance: WD/WN, no apparent distress, alert EENT: PERRL/EOMI, normal ENT inspection Neck: non-tender, normal alignment, supple, normal inspection Cardiovascular: regular rhythm, no gallop/murmur, no JVD, tachycardia Respiratory/Chest: chest wall non-tender, lungs clear, normal breath sounds, no respiratory distress, no accessory muscle use Abdomen: normal bowel sounds, non tender, soft, no organomegaly, no mass Extremities: normal range of motion, non-tender Neurologic: brazer repair and salvage II-XII grossly normal, no motor/sensory deficits Skin: normal pigmentation, warm/dry Assessment/Plan Problem List: (1) Altered mental status (2) Confused Assessment & Plan: ?psychosis?-see psych note. (3) Elevated brain natriuretic peptide (BNP) level Assessment & Plan: See cardiology note. (4) Hypertension Assessment & Plan: Continue amlodipine. (5) Alzheimer's dementia (6) Tachycardia Assessment & Plan: Unknown etiology. See cardiology Note (7) Renal failure Assessment & Plan: Start IV fluids. Nephrology consult. Renal ultrasound Status: deteriorating CAIN CARPENTER Jan 23, 2018 12:34
[2018-01-23] MEDS ORDERED: Haloperidol 5mg/ml Inj IM PRN (12:45)
--- NOTE | 2018-01-23 14:45 | Cardiology Report ---
APPROVED REPORT EXAM: Two-dimensional and M-mode echocardiogram with Doppler and color Doppler. INDICATION Altered LOC M-Mode DIMENSIONS IVSd0.8 (0.7-1.1cm)Left Atrium (MM)2.7 (1.6-4.0cm) LVDd3.6 (3.5-5.6cm)Aortic Root2.1 (2.0-3.7cm) PWd0.9 (0.7-1.1cm)Aortic Cusp Exc.1.6 (1.5-2.0cm) LVDs1.4 (2.5-4.0cm) PWs2.0 cm Normal left ventricular chamber size, systolic function and wall motion. Left ventricular ejection fraction estimated to be 60-65 %. No evidence of left ventricular hypertrophy. Anterior Echo-free space, may be due to pericardial fat or effusion. All other cardiac chamber sizes are within normal limits. Focal aortic valve sclerosis with adequate cusp excursion. Thickened mitral valve leaflets with normal excursion. Mild mitral annulus and aortic root calcification. Normal pulmonic valve structure. Normal tricuspid valve structure. IVC is normal in size with physiological collapse. A color flow and spectral Doppler study was performed and revealed: Trace aortic insufficiency. Mild to moderate mitral regurgitation. Mitral diastolic velocities suggest mild left ventricular diastolic dysfunction (Grade I). Mild tricuspid regurgitation. Tricuspid systolic velocities suggests peak right ventricular systolic pressure of 41 mmHg, consistent with mild pulmonary hypertension. No pulmonic regurgitation present.
--- NOTE | 2018-01-23 15:00 | Consultation ---
Consult Note Consult Note asked to eval for rising Cr Assessment/Plan Briseyda U Eos Post voiding bladder scan for residual kidney MASON fu after above available SILVIA MONTES Jan 23, 2018 15:00
[2018-01-23 16:00] VITALS: BP 132/78
--- NOTE | 2018-01-23 16:05 | Cardiology Report ---
APPROVED REPORT EKG Measurement Heart [id number] Sinus tachycardia Possible Left atrial enlargement Nonspecific ST and T wave abnormality Abnormal ECG
[2018-01-23 20:00] VITALS: BP 144/79
[2018-01-23] MEDS: Latanoprost 0.005% Opth 2.5ml Soln BOTH EYES SCH (21:00)
[2018-01-24 04:00] VITALS: BP 150/82
[2018-01-24] MEDS: Oxybutynin 5mg tab ORAL SCH ×3 (06:00→21:54)
[2018-01-24] MEDS: NovoLOG Insulin Flexpen SUBQ SCH ×4 (06:30→21:55)
[2018-01-24 08:04] LABS: BASOPHILS % (AUTO) 0.9 % (0.0-2.0); HEMATOCRIT 40.4 % (37.0-47.0); HEMOGLOBIN 13.4 G/DL (12.0-16.0); MEAN CORPUSCULAR VOLUME 84 FL (80-99); MONOCYTES % (AUTO) 9.6 % (1.0-10.0); NEUTROPHILS % (AUTO) 69.5 % (45.0-75.0); PLATELET COUNT 197 K/UL (150-450); RED BLOOD COUNT 4.81 M/UL (4.20-5.40); RED CELL DISTRIBUTION WIDTH 12.9 % (11.6-14.8); WHITE BLOOD COUNT 8.3 K/UL (4.8-10.8)
[2018-01-24] MEDS: Heparin 5000 units/ml inj SUBQ SCH ×2 (09:00→21:34)
[2018-01-24] MEDS: Vitamin D 1000 IU Tab ORAL SCH (09:00)
[2018-01-24 09:15] LABS: ALANINE AMINOTRANSFERASE 35 U/L (12-78); ALBUMIN 3.2 G/DL (3.4-5.0); ALBUMIN/GLOBULIN RATIO 0.7 (1.0-2.7); ALKALINE PHOSPHATASE 61 U/L (46-116); ANION GAP 12 mmol/L (5-15); ASPARTATE AMINO TRANSFERASE 25 U/L (15-37); BILIRUBIN,TOTAL 0.6 MG/DL (0.2-1.0); BLOOD UREA NITROGEN 21 mg/dL (7-18); CALCIUM 10.3 MG/DL (8.5-10.1); CARBON DIOXIDE 23 MMOL/L (21-32); CHLORIDE 107 MMOL/L (98-107); CREATININE 1.2 MG/DL (0.55-1.30); SODIUM 142 MMOL/L (136-145)
[2018-01-24 09:16] LABS: CREATINE KINASE 183 U/L (26-308); PHOSPHORUS 2.6 MG/DL (2.5-4.9)
--- NOTE | 2018-01-24 10:14 | General Progress Note ---
Assessment/Plan Status: stable Assessment/Plan 1. Encephalopathy. 2. Dementia - Alzheimer's type. 3. Renal failure - age indeterminate. 4. Hypercalcemia. 5. Abnormal blood sugar. 6. Hypokalemia. 7. Abnormal serum BNP. 8. Deconditioning. 9. Psychiatric disorder. Plan: Ok to followup as outpatient, once clear by psych Subjective ROS Limited/Unobtainable: Yes Allergies: Coded Allergies: No Known Allergies (Unverified , 01/21/18) Objective Last 24 Hour Vital Signs Date Time Temp Pulse Resp B/P (MAP) Pulse Ox O2 Delivery O2 Flow Rate FiO2 01/24/18 04:00 98.1 129 20 150/82 98.0 98.1 01/24/18 04:00 105 01/24/18 00:00 112 01/23/18 20:00 98.2 127 20 144/79 Room Air 98.0 98.2 01/23/18 20:00 128 01/23/18 16:00 97.4 106 20 132/78 96 Room Air 97.4 01/23/18 16:00 103 01/23/18 12:00 108 Intake and Output 01/23/18 01/24/18 19:00 07:00 Intake Total 425 ml 5 ml Output Total 1300 ml Balance 425 ml -1295 ml Intake Oral 200 ml IV Total 225 ml 5 ml Output Urine Total 1300 ml # Voids 1 # Bowel Movements 2 Laboratory Tests 01/23/18 18:00: Urine Random Sodium 109 01/24/18 02:30: Urine Eosinophils None seen 01/24/18 07:30: White Blood Count 8.3, Red Blood Count 4.81, Hemoglobin 13.4, Hematocrit 40.4, Mean Corpuscular Volume 84, Mean Corpuscular Hemoglobin 27.9, Mean Corpuscular Hemoglobin Concent 33.2, Red Cell Distribution Width 12.9, Platelet Count 197, Mean Platelet Volume 9.5, Neutrophils (%) (Auto) 69.5, Lymphocytes (%) (Auto) 20.0, Monocytes (%) (Auto) 9.6, Eosinophils (%) (Auto) 0.0, Basophils (%) (Auto ) 0.9, Sodium Level 142, Potassium Level 4.0, Chloride Level 107, Carbon Dioxide Level 23, Anion Gap 12, Blood Urea Nitrogen 21H, Creatinine 1.2#, Estimat Glomerular Filtration Rate 54.7, Glucose Level 87, Hemoglobin A1c 5.7, Uric Acid 3.9, Calcium Level 10.3H, Phosphorus Level 2.6, Magnesium Level 1.5L, Total Bilirubin 0.6, Aspartate Amino Transf (AST/SGOT) 25, Alanine Aminotransferase (ALT/SGPT) 35, Alkaline Phosphatase 61, Total Creatine Kinase 183, Total Protein 7.5, Albumin 3.2L, Globulin 4.3, Albumin/Globulin Ratio 0.7L Height (Feet): 5 Height (Inches): 9.00 Weight (Pounds): 120 General Appearance: WD/WN EENT: PERRL/EOMI Neck: supple Cardiovascular: normal rate Respiratory/Chest: lungs clear Abdomen: soft Extremities: non-tender Neurologic: coding clerk II-XII grossly normal, disoriented, other - demented. lack of attention. limited Elvis Ann MD Jan 24, 2018 10:13
[2018-01-24 20:00] VITALS: BP 115/65
[2018-01-24] MEDS: Latanoprost 0.005% Opth 2.5ml Soln BOTH EYES SCH (21:36)
[2018-01-24] MEDS ORDERED: Tylenol #3 tab (300mg/30mg) ORAL PRN (22:00)
--- NOTE | 2018-01-24 22:03 | General Progress Note ---
Assessment/Plan Status: unchanged Assessment/Plan ASSESSMENT: [place] I Dementia with behavior disturbance. PLAN: 1. We will start the patient on Seroquel 25 mg every four hours p.r.n. with anxiety and agitation. We will discontinue the Ativan. 2. We will continue to follow and readjust the medications. Subjective Date patient seen: Jan 24, 2018 Neurologic/Psychiatric: Reports: anxiety, depressed, emotional problems Allergies: Coded Allergies: No Known Allergies (Unverified , 01/21/18) Objective Last 24 Hour Vital Signs Date Time Temp Pulse Resp B/P (MAP) Pulse Ox O2 Delivery O2 Flow Rate FiO2 01/24/18 20:00 97.9 127 20 115/65 98 97.9 01/24/18 16:00 110 01/24/18 12:00 120 01/24/18 08:00 109 01/24/18 04:00 98.1 129 20 150/82 98.0 98.1 01/24/18 04:00 105 01/24/18 00:00 112 Intake and Output 01/23/18 01/24/18 19:00 07:00 Intake Total 425 ml 5 ml Output Total 1300 ml Balance 425 ml -1295 ml Intake Oral 200 ml IV Total 225 ml 5 ml Output Urine Total 1300 ml # Voids 1 # Bowel Movements 2 Laboratory Tests 01/24/18 02:30: Urine Eosinophils None seen 01/24/18 07:30: White Blood Count 8.3, Red Blood Count 4.81, Hemoglobin 13.4, Hematocrit 40.4, Mean Corpuscular Volume 84, Mean Corpuscular Hemoglobin 27.9, Mean Corpuscular Hemoglobin Concent 33.2, Red Cell Distribution Width 12.9, Platelet Count 197, Mean Platelet Volume 9.5, Neutrophils (%) (Auto) 69.5, Lymphocytes (%) (Auto) 20.0, Monocytes (%) (Auto) 9.6, Eosinophils (%) (Auto) 0.0, Basophils (%) (Auto ) 0.9, Sodium Level 142, Potassium Level 4.0, Chloride Level 107, Carbon Dioxide Level 23, Anion Gap 12, Blood Urea Nitrogen 21H, Creatinine 1.2#, Estimat Glomerular Filtration Rate 54.7, Glucose Level 87, Hemoglobin A1c 5.7, Uric Acid 3.9, Calcium Level 10.3H, Phosphorus Level 2.6, Magnesium Level 1.5L, Total Bilirubin 0.6, Aspartate Amino Transf (AST/SGOT) 25, Alanine Aminotransferase (ALT/SGPT) 35, Alkaline Phosphatase 61, Total Creatine Kinase 183, Total Protein 7.5, Albumin 3.2L, Globulin 4.3, Albumin/Globulin Ratio 0.7L Height (Feet): 5 Height (Inches): 9.00 Weight (Pounds): 120 General Appearance: no apparent distress, alert, confused, agitated Ender Alvarez M.D. Jan 24, 2018 22:03
--- NOTE | 2018-01-24 22:04 | Psych Consult Progress Note ---
Psych Consult Progress Note Consult 01/24/18 Vital Signs Last 24 Hour Vital Signs Date Time Temp Pulse Resp B/P (MAP) Pulse Ox O2 Delivery O2 Flow Rate FiO2 01/24/18 20:00 97.9 127 20 115/65 98 97.9 01/24/18 16:00 110 01/24/18 12:00 120 01/24/18 08:00 109 01/24/18 04:00 98.1 129 20 150/82 98.0 98.1 01/24/18 04:00 105 01/24/18 00:00 112 Labs Laboratory Tests Test 01/24/18 02:30 01/24/18 07:30 Urine Eosinophils None seen White Blood Count 8.3 K/UL (4.8-10.8) Red Blood Count 4.81 M/UL (4.20-5.40) Hemoglobin 13.4 G/DL (12.0-16.0) Hematocrit 40.4 % (37.0-47.0) Mean Corpuscular Volume 84 FL (80-99) Mean Corpuscular Hemoglobin 27.9 PG (27.0-31.0) Mean Corpuscular Hemoglobin Concent 33.2 G/DL (32.0-36.0) Red Cell Distribution Width 12.9 % (11.6-14.8) Platelet Count 197 K/UL (150-450) Mean Platelet Volume 9.5 FL (6.5-10.1) Neutrophils (%) (Auto) 69.5 % (45.0-75.0) Lymphocytes (%) (Auto) 20.0 % (20.0-45.0) Monocytes (%) (Auto) 9.6 % (1.0-10.0) Eosinophils (%) (Auto) 0.0 % (0.0-3.0) Basophils (%) (Auto) 0.9 % (0.0-2.0) Sodium Level 142 MMOL/L (136-145) Potassium Level 4.0 MMOL/L (3.5-5.1) Chloride Level 107 MMOL/L (98-107) Carbon Dioxide Level 23 MMOL/L (21-32) Anion Gap 12 mmol/L (5-15) Blood Urea Nitrogen 21 mg/dL (7-18) H Creatinine 1.2 MG/DL (0.55-1.30) # Estimat Glomerular Filtration Rate 54.7 mL/min (>60) Glucose Level 87 MG/DL (74-106) Hemoglobin A1c 5.7 % (4.3-6.0) Uric Acid 3.9 MG/DL (2.6-7.2) Calcium Level 10.3 MG/DL (8.5-10.1) H Phosphorus Level 2.6 MG/DL (2.5-4.9) Magnesium Level 1.5 MG/DL (1.8-2.4) L Total Bilirubin 0.6 MG/DL (0.2-1.0) Aspartate Amino Transf (AST/SGOT) 25 U/L (15-37) Alanine Aminotransferase (ALT/SGPT) 35 U/L (12-78) Alkaline Phosphatase 61 U/L (46-116) Total Creatine Kinase 183 U/L (26-308) Total Protein 7.5 G/DL (6.4-8.2) Albumin 3.2 G/DL (3.4-5.0) L Globulin 4.3 g/dL Albumin/Globulin Ratio 0.7 (1.0-2.7) L Medications Current Medications Medications (Trade) Dose Ordered Sig/Dae Route PRN Reason Start Time Stop Time Status Last Admin Dose Admin Acetaminophen (Tylenol) 650 mg Q4H PRN ORAL Mild Pain/Temp > 100.5 01/24/18 22:00 02/20/18 09:59 Acetaminophen/ Codeine Phosphate (Tylenol #3) 1 tab Q8HR PRN ORAL MOD-SEVERE PAIN 01/24/18 22:00 01/28/18 09:59 Alendronate Sodium (Fosamax) 70 mg QWEEK ORAL 01/28/18 06:30 02/27/18 06:29 Amlodipine Besylate (Norvasc) 5 mg DAILY ORAL 01/25/18 09:00 02/20/18 09:59 Dextrose (Dextrose 50%) STAT PRN IV Hypoglycemia 01/25/18 10:00 02/20/18 09:59 Haloperidol Lactate (Haldol) 5 mg Q6H PRN IM Agitation 01/25/18 00:45 02/22/18 12:44 Heparin Sodium (Porcine) (Heparin 5000 units/ml) 5,000 units EVERY 12 HOURS SUBQ 01/24/18 21:00 02/20/18 20:59 01/24/18 21:34 Insulin Aspart (NovoLOG) BEFORE MEALS AND HS SUBQ 01/24/18 21:00 02/20/18 11:29 01/24/18 21:55 Latanoprost (Xalatan) 1 drop BEDTIME BOTH EYES 01/24/18 21:00 02/20/18 20:59 01/24/18 21:36 Multivitamins (Multivitamins) 1 tab DAILY ORAL 01/25/18 09:00 02/20/18 09:59 Oxybutynin Chloride (Ditropan) 5 mg Q8HR ORAL 01/24/18 22:00 02/20/18 13:59 01/24/18 21:54 Polyethylene Glycol (Miralax) 17 gm DAILY PRN ORAL CONSTIPATION 01/25/18 09:00 02/20/18 09:59 Quetiapine Fumarate (SEROquel) 12.5 mg BID ORAL 01/25/18 09:00 02/20/18 17:59 Quetiapine Fumarate (SEROquel) 25 mg EVERY 4 HOURS PRN ORAL agitation 01/24/18 21:00 02/20/18 15:44 Sodium Chloride 1,000 ml @ 75 mls/hr [id number] IV 01/24/18 19:15 02/22/18 12:44 Vitamin D (Vitamin D) 1,000 intlu DAILY ORAL 01/25/18 09:00 02/21/18 08:59 Problems: (1) Altered level of consciousness Status: Acute (2) Altered mental status (3) Hypertension (4) Confused Status: Acute Assessment & Plan: [place] I Dementia with behavior disturbance. PLAN: 1. We will start the patient on Seroquel 25 mg every four hours p.r.n. with anxiety and agitation. We will discontinue the Ativan. 2. We will continue to follow and readjust the medications. (5) Alzheimer's dementia Assessment & Plan: [place] I Dementia with behavior disturbance. PLAN: 1. We will start the patient on Seroquel 25 mg every four hours p.r.n. with anxiety and agitation. We will discontinue the Ativan. 2. We will continue to follow and readjust the medications. (6) Elevated brain natriuretic peptide (BNP) level (7) Renal failure (8) Tachycardia Status: Acute Farhadi,Pantea M.D. Jan 24, 2018 22:04
--- NOTE | 2018-01-24 23:35 | Consultation ---
TAURUS VASQUEZ Jan 24, 2018 23:35
[2018-01-25] VITALS: BP 131/99
[2018-01-25 04:00] VITALS: BP 106/63
[2018-01-25] MEDS: NovoLOG Insulin Flexpen SUBQ SCH ×4 (06:03→22:03)
[2018-01-25] MEDS: Oxybutynin 5mg tab ORAL SCH ×3 (06:03→21:59)
[2018-01-25 07:52] LABS: HEMATOCRIT 37.1 % (37.0-47.0); HEMOGLOBIN 12.1 G/DL (12.0-16.0); LYMPHOCYTES % (AUTO) 12.6 % (20.0-45.0); MEAN CORPUSCULAR VOLUME 86 FL (80-99); MONOCYTES % (AUTO) 9.5 % (1.0-10.0); NEUTROPHILS % (AUTO) 76.8 % (45.0-75.0); PLATELET COUNT 194 K/UL (150-450); RED BLOOD COUNT 4.33 M/UL (4.20-5.40); RED CELL DISTRIBUTION WIDTH 12.9 % (11.6-14.8); WHITE BLOOD COUNT 9.2 K/UL (4.8-10.8)
[2018-01-25 08:00] VITALS: BP 148/78
[2018-01-25 08:38] LABS: ALANINE AMINOTRANSFERASE 41 U/L (12-78); ALBUMIN 3.2 G/DL (3.4-5.0); ALBUMIN/GLOBULIN RATIO 0.8 (1.0-2.7); ALKALINE PHOSPHATASE 56 U/L (46-116); ANION GAP 8 mmol/L (5-15); ASPARTATE AMINO TRANSFERASE 33 U/L (15-37); BILIRUBIN,TOTAL 0.4 MG/DL (0.2-1.0); BLOOD UREA NITROGEN 18 mg/dL (7-18); CALCIUM 10.1 MG/DL (8.5-10.1); CARBON DIOXIDE 27 MMOL/L (21-32); CHLORIDE 108 MMOL/L (98-107); CREATININE 0.7 MG/DL (0.55-1.30); POTASSIUM 3.7 MMOL/L (3.5-5.1); SODIUM 142 MMOL/L (136-145)
[2018-01-25] MEDS: Vitamin D 1000 IU Tab ORAL SCH (08:58)
[2018-01-25] MEDS ORDERED: Miralax 17gm pkt ORAL PRN (09:00)
[2018-01-25] MEDS: Heparin 5000 units/ml inj SUBQ SCH ×2 (09:09→22:02)
--- NOTE | 2018-01-25 09:43 | General Progress Note ---
Assessment/Plan Status: stable Assessment/Plan 1. Encephalopathy. 2. Dementia - Alzheimer's type. 3. Renal failure - age indeterminate. 4. Hypercalcemia. 5. Abnormal blood sugar. 6. Hypokalemia. 7. Abnormal serum BNP. 8. Deconditioning. 9. Psychiatric disorder. Plan: Ok to followup as outpatient, once clear by psych Needs facility placement. CM working on Dr Navas, notified. He requested me to continue my care. Subjective ROS Limited/Unobtainable: Yes Allergies: Coded Allergies: No Known Allergies (Unverified , 01/21/18) Objective Last 24 Hour Vital Signs Date Time Temp Pulse Resp B/P (MAP) Pulse Ox O2 Delivery O2 Flow Rate FiO2 01/25/18 09:06 110 148/88 01/25/18 04:00 97.0 127 20 106/63 100 97.0 01/25/18 00:00 97.1 133 20 131/99 99 97.1 01/24/18 20:00 97.9 127 20 115/65 98 97.9 01/24/18 16:00 110 01/24/18 12:00 120 Intake and Output 01/24/18 01/25/18 19:00 07:00 Intake Total 360 ml 600 ml Output Total 700 ml 900 ml Balance -340 ml -300 ml Intake Oral 360 ml IV Total 600 ml Output Urine Total 700 ml 900 ml # Bowel Movements 1 Laboratory Tests 01/25/18 04:00: Urine Eosinophils Negative 01/25/18 07:10: White Blood Count 9.2, Red Blood Count 4.33, Hemoglobin 12.1, Hematocrit 37.1, Mean Corpuscular Volume 86, Mean Corpuscular Hemoglobin 28.0, Mean Corpuscular Hemoglobin Concent 32.7, Red Cell Distribution Width 12.9, Platelet Count 194, Mean Platelet Volume 9.2, Neutrophils (%) (Auto) 76.8H, Lymphocytes (%) (Auto) 12.6L, Monocytes (%) (Auto) 9.5, Eosinophils (%) (Auto) 0.0, Basophils (%) (Auto ) 1.0, Sodium Level 142, Potassium Level 3.7, Chloride Level 108H, Carbon Dioxide Level 27, Anion Gap 8, Blood Urea Nitrogen 18, Creatinine 0.7, Estimat Glomerular Filtration Rate > 60, Glucose Level 113H, Calcium Level 10.1, Total Bilirubin 0.4, Aspartate Amino Transf (AST/SGOT) 33, Alanine Aminotransferase ( ALT/SGPT) 41, Alkaline Phosphatase 56, Total Protein 7.3, Albumin 3.2L, Globulin 4.1, Albumin/Globulin Ratio 0.8L Height (Feet): 5 Height (Inches): 9.00 Weight (Pounds): 120 General Appearance: WD/WN EENT: PERRL/EOMI Neck: non-tender Cardiovascular: normal rate Respiratory/Chest: lungs clear Abdomen: soft Extremities: non-tender Neurologic: disoriented, other - Demented. episodes of agitation Elvis Lofton MD Jan 25, 2018 09:43
[2018-01-25] MEDS: Haloperidol 5mg/ml Inj IM PRN (10:31)
[2018-01-25 11:00] VITALS: BP 142/94
--- NOTE | 2018-01-25 13:04 | Diagnostic Imaging Report ---
Indication:Elevated Bun and Creatinine. Technique: Grayscale and duplex Doppler imaging of the kidneys performed. Comparison: None Findings: Espinoza catheter is present in good position. There is thickening of the wall of the urinary bladder. There is no hydronephrosis demonstrated within either kidney. Both kidneys measure between 10 and 11 cm. IVC is unremarkable. IMPRESSION: Negative examination of the kidneys. Thickened bladder wall. Correlate for cystitis. Espinoza catheter noted
[2018-01-25 16:18] VITALS: BP 162/93
--- NOTE | 2018-01-25 17:56 | General Progress Note ---
Assessment/Plan Problem List: (1) Altered level of consciousness ICD Codes: R40.4 - Transient alteration of awareness SNOMED: 3279185 (2) Altered mental status ICD Codes: R41.82 - Altered mental status, unspecified SNOMED: 339689511 (3) Hypertension ICD Codes: I10 - Essential (primary) hypertension SNOMED: 45733914 (4) Confused Assessment & Plan: [place] I Dementia with behavior disturbance. PLAN: 1. We will start the patient on Seroquel 25 mg every four hours p.r.n. with anxiety and agitation. We will discontinue the Ativan. 2. We will continue to follow and readjust the medications. ICD Codes: R41.0 - Disorientation, unspecified SNOMED: 356697171 (5) Alzheimer's dementia Assessment & Plan: [place] I Dementia with behavior disturbance. PLAN: 1. We will start the patient on Seroquel 25 mg every four hours p.r.n. with anxiety and agitation. We will discontinue the Ativan. 2. We will continue to follow and readjust the medications. ICD Codes: G30.9 - Alzheimer's disease, unspecified; F02.80 - Dementia in other diseases classified elsewhere without behavioral disturbance SNOMED: 37444674 Qualifiers: (6) Elevated brain natriuretic peptide (BNP) level ICD Codes: R79.89 - Other specified abnormal findings of blood chemistry SNOMED: 471753234, 729936221 (7) Renal failure ICD Codes: N19 - Unspecified kidney failure SNOMED: 72309340 (8) Tachycardia ICD Codes: R00.0 - Tachycardia, unspecified SNOMED: 1147032 Status: stable Assessment/Plan ASSESSMENT: [place] I Dementia with behavior disturbance. PLAN: 1. dc Seroquel 25 mg every four hours p.r.n. with anxiety and agitation. 2. cont haldol im prn 3. start zyprexa Subjective Date patient seen: Jan 25, 2018 Neurologic/Psychiatric: Reports: anxiety, depressed, emotional problems Allergies: Coded Allergies: No Known Allergies (Unverified , 01/21/18) Subjective the pt cont to be agitated. appetite is good not combative attempts to come out of bed. haldol more effective Objective Last 24 Hour Vital Signs Date Time Temp Pulse Resp B/P (MAP) Pulse Ox O2 Delivery O2 Flow Rate FiO2 01/25/18 16:18 98.8 124 24 162/93 99 Room Air 98.8 01/25/18 13:54 118 01/25/18 11:00 97.2 130 23 142/94 Room Air 97.2 01/25/18 09:06 110 148/88 01/25/18 08:00 96.3 122 22 148/78 Room Air 96.3 01/25/18 04:00 97.0 127 20 106/63 100 97.0 01/25/18 00:00 97.1 133 20 131/99 99 97.1 01/24/18 20:00 97.9 127 20 115/65 98 97.9 Intake and Output 01/24/18 01/25/18 19:00 07:00 Intake Total 360 ml 600 ml Output Total 700 ml 900 ml Balance -340 ml -300 ml Intake Oral 360 ml IV Total 600 ml Output Urine Total 700 ml 900 ml # Bowel Movements 1 Laboratory Tests 01/25/18 04:00: Urine Eosinophils Negative 01/25/18 07:10: White Blood Count 9.2, Red Blood Count 4.33, Hemoglobin 12.1, Hematocrit 37.1, Mean Corpuscular Volume 86, Mean Corpuscular Hemoglobin 28.0, Mean Corpuscular Hemoglobin Concent 32.7, Red Cell Distribution Width 12.9, Platelet Count 194, Mean Platelet Volume 9.2, Neutrophils (%) (Auto) 76.8H, Lymphocytes (%) (Auto) 12.6L, Monocytes (%) (Auto) 9.5, Eosinophils (%) (Auto) 0.0, Basophils (%) (Auto ) 1.0, Sodium Level 142, Potassium Level 3.7, Chloride Level 108H, Carbon Dioxide Level 27, Anion Gap 8, Blood Urea Nitrogen 18, Creatinine 0.7, Estimat Glomerular Filtration Rate > 60, Glucose Level 113H, Calcium Level 10.1, Total Bilirubin 0.4, Aspartate Amino Transf (AST/SGOT) 33, Alanine Aminotransferase ( ALT/SGPT) 41, Alkaline Phosphatase 56, Total Protein 7.3, Albumin 3.2L, Globulin 4.1, Albumin/Globulin Ratio 0.8L 01/25/18 13:50: Urine Eosinophils None seen Height (Feet): 5 Height (Inches): 9.00 Weight (Pounds): 120 General Appearance: no apparent distress, alert, confused, agitated Ender Alvarez M.D. Jan 25, 2018 17:56
--- NOTE | 2018-01-25 19:19 | Cardiology Progress Note ---
Assessment/Plan Assessment/Plan 1. Sinus tachycardia, continue hydration, no e/o hyperthyroidism, echo reveals normal LV systolic function with normal intracardiac filling pressure. 2. Normal LV systolic function with LVEF of approximately 60% to 65%. 3. Mild pulmonary hypertension. Subjective Subjective Sinus tachycardia at 124. Objective Last 24 Hour Vital Signs Date Time Temp Pulse Resp B/P (MAP) Pulse Ox O2 Delivery O2 Flow Rate FiO2 01/25/18 16:18 98.8 124 24 162/93 99 Room Air 98.8 01/25/18 13:54 118 01/25/18 11:00 97.2 130 23 142/94 Room Air 97.2 01/25/18 09:06 110 148/88 01/25/18 08:00 96.3 122 22 148/78 Room Air 96.3 01/25/18 04:00 97.0 127 20 106/63 100 97.0 01/25/18 00:00 97.1 133 20 131/99 99 97.1 01/24/18 20:00 97.9 127 20 115/65 98 97.9 Intake and Output 01/24/18 01/25/18 19:00 07:00 Intake Total 360 ml 600 ml Output Total 700 ml 900 ml Balance -340 ml -300 ml Intake Oral 360 ml IV Total 600 ml Output Urine Total 700 ml 900 ml # Bowel Movements 1 2D Echo: LVEF 65%, Grade I LVDD, Mild-Mod MR, RVSP 41 mmHg, Laboratory Tests Test 01/25/18 04:00 01/25/18 07:10 01/25/18 13:50 Urine Eosinophils Negative None seen White Blood Count 9.2 K/UL (4.8-10.8) Red Blood Count 4.33 M/UL (4.20-5.40) Hemoglobin 12.1 G/DL (12.0-16.0) Hematocrit 37.1 % (37.0-47.0) Mean Corpuscular Volume 86 FL (80-99) Mean Corpuscular Hemoglobin 28.0 PG (27.0-31.0) Mean Corpuscular Hemoglobin Concent 32.7 G/DL (32.0-36.0) Red Cell Distribution Width 12.9 % (11.6-14.8) Platelet Count 194 K/UL (150-450) Mean Platelet Volume 9.2 FL (6.5-10.1) Neutrophils (%) (Auto) 76.8 % (45.0-75.0) H Lymphocytes (%) (Auto) 12.6 % (20.0-45.0) L Monocytes (%) (Auto) 9.5 % (1.0-10.0) Eosinophils (%) (Auto) 0.0 % (0.0-3.0) Basophils (%) (Auto) 1.0 % (0.0-2.0) Sodium Level 142 MMOL/L (136-145) Potassium Level 3.7 MMOL/L (3.5-5.1) Chloride Level 108 MMOL/L (98-107) H Carbon Dioxide Level 27 MMOL/L (21-32) Anion Gap 8 mmol/L (5-15) Blood Urea Nitrogen 18 mg/dL (7-18) Creatinine 0.7 MG/DL (0.55-1.30) Estimat Glomerular Filtration Rate > 60 mL/min (>60) Glucose Level 113 MG/DL (74-106) H Calcium Level 10.1 MG/DL (8.5-10.1) Total Bilirubin 0.4 MG/DL (0.2-1.0) Aspartate Amino Transf (AST/SGOT) 33 U/L (15-37) Alanine Aminotransferase (ALT/SGPT) 41 U/L (12-78) Alkaline Phosphatase 56 U/L (46-116) Total Protein 7.3 G/DL (6.4-8.2) Albumin 3.2 G/DL (3.4-5.0) L Globulin 4.1 g/dL Albumin/Globulin Ratio 0.8 (1.0-2.7) L Objective HEENT: Atraumatic and normocephalic. Anicteric. Pupils are equal, round, and reactive to light and accommodation. Extraocular muscles intact. NECK: JVP is less than 5 cm. No carotid bruits. Carotid upstrokes 2+ bilaterally. CARDIOVASCULAR: Normal S1 and S2. Regular rate and rhythm. Tachycardic. No murmurs, gallops, or rubs. PMI is at the fourth intercostal space in the midclavicular line. LUNGS: Clear to auscultation bilaterally. ABDOMEN: Soft, nontender, and nondistended. No hepatosplenomegaly. Positive bowel sounds. EXTREMITIES: No evidence of edema, clubbing, or cyanosis. TAURUS VASQUEZ Jan 25, 2018 19:19
[2018-01-25 20:00] VITALS: BP 120/47
[2018-01-25] MEDS: Latanoprost 0.005% Opth 2.5ml Soln BOTH EYES SCH (21:00)
[2018-01-25] MEDS ORDERED: levETIRAcetam 500mg/NS100ml 100 ML IVPB STA (22:53)
[2018-01-25] MEDS ORDERED: LORazepam Inj 2mg/ml 1ml IV ONE (23:15)
[2018-01-26] MEDS ORDERED: levETIRAcetam 1,000mg/NS100ml 100 ML IVPB SCH
[2018-01-26 01:00] VITALS: BP 153/79
[2018-01-26] MEDS: LORazepam Inj 2mg/ml 1ml IV PRN ×4 (01:59→21:49)
[2018-01-26 03:27] LABS: APPEARANCE,URINE TURBID; BILIRUBIN, URINE NEGATIVE (NEGATIVE); GLUCOSE, URINE (UA) NEGATIVE (NEGATIVE); KETONES,URINE 1+ (NEGATIVE); LEUKOCYTE ESTERASE ,URINE 3+ (NEGATIVE); NITRITE,URINE POSITIVE (NEGATIVE); PH,URINE 6 (4.5-8.0); PROTEIN,URINE 3+ (NEGATIVE); UROBILINOGEN,URINE 1 MG/DL (0.0-1.0)
[2018-01-26 03:56] LABS: COLOR,URINE YELLOW
[2018-01-26 04:00] VITALS: BP 133/77
[2018-01-26] MEDS: Oxybutynin 5mg tab ORAL SCH ×2 (06:00→13:54)
[2018-01-26] MEDS: NovoLOG Insulin Flexpen SUBQ SCH ×4 (06:27→21:00)
[2018-01-26 08:00] VITALS: BP 132/80
[2018-01-26 08:57] LABS: HEMATOCRIT 42.1 % (37.0-47.0); HEMOGLOBIN 13.6 G/DL (12.0-16.0); MEAN CORPUSCULAR VOLUME 85 FL (80-99); PLATELET COUNT 228 K/UL (150-450); RED BLOOD COUNT 4.97 M/UL (4.20-5.40); RED CELL DISTRIBUTION WIDTH 12.9 % (11.6-14.8); WHITE BLOOD COUNT 14.7 K/UL (4.8-10.8)
[2018-01-26] MEDS: OLANZapine 2.5mg tab ORAL SCH (09:23)
[2018-01-26] MEDS: Heparin 5000 units/ml inj SUBQ SCH ×2 (09:27→21:52)
[2018-01-26] MEDS: Vitamin D 1000 IU Tab ORAL SCH (09:30)
[2018-01-26] MEDS ORDERED: Vancomycin 1gm/D5W 275ml IVPB ONE ×2 (09:30)
[2018-01-26 09:39] LABS: ALANINE AMINOTRANSFERASE 48 U/L (12-78); ALBUMIN 3.2 G/DL (3.4-5.0); ALBUMIN/GLOBULIN RATIO 0.7 (1.0-2.7); ALKALINE PHOSPHATASE 69 U/L (46-116); ANION GAP 10 mmol/L (5-15); ASPARTATE AMINO TRANSFERASE 29 U/L (15-37); BILIRUBIN,TOTAL 0.5 MG/DL (0.2-1.0); BLOOD UREA NITROGEN 13 mg/dL (7-18); CARBON DIOXIDE 26 MMOL/L (21-32); CHLORIDE 104 MMOL/L (98-107); CREATININE 0.8 MG/DL (0.55-1.30); POTASSIUM 3.6 MMOL/L (3.5-5.1); SODIUM 140 MMOL/L (136-145)
--- NOTE | 2018-01-26 09:47 | Diagnostic Imaging Report ---
Indication: Seizure Technique: Contiguous 5 mm thick transaxial imaging of the head obtained in a Siemens Sensation [address] scanner. Soft tissue and bone windows generated. Automatic Exposure Control was utilized. Total Dose length Product (DLP): 1421.[address] Dose Index Volume (CTDIvol): 70.38 mGy Comparison: January 21, 2018 Findings: The size and configuration of the cortical sulci, basal cisterns, and ventricles are within normal limits for age. There is no mass effect, midline shift, or edema identified. There is no evidence of acute hemorrhage or abnormal intra-axial or extra-axial fluid collections. The bones and soft tissues are unremarkable. Impression: No mass effect, edema or acute bleed. No interval change. The CT scanner at [facility] is accredited by the [employer] and the scans are performed using dose optimization techniques as appropriate to a performed exam including Automatic Exposure control.
[2018-01-26] MEDS: Cefepime HCl 2 GM in NS 110 ML IV SCH (10:05)
--- NOTE | 2018-01-26 11:04 | Neurology Progress Note ---
Interim History Interim History ROS Limited/Unobtainable: Yes Complaints: weakness Events: noted generalised sz episode Objective Physical Exam Last Vital Signs Date Time Temp Pulse Resp B/P (MAP) Pulse Ox O2 Delivery O2 Flow Rate FiO2 01/26/18 09:25 135 133/77 01/26/18 08:00 97.7 22 95 97.7 01/25/18 16:18 Room Air 01/24/18 04:00 98.0 Laboratory Tests Test 01/25/18 13:50 01/26/18 01:20 01/26/18 08:30 Urine Eosinophils None seen Urine Color Yellow Urine Appearance Turbid Urine pH 6 (4.5-8.0) Urine Specific [place] 1.025 (1.005-1.035) Urine Protein 3+ (NEGATIVE) H Urine Glucose (UA) Negative (NEGATIVE) Urine Ketones 1+ (NEGATIVE) H Urine Occult Blood 5+ (NEGATIVE) H Urine Nitrite Positive (NEGATIVE) H Urine Bilirubin Negative (NEGATIVE) Urine Urobilinogen 1 MG/DL (0.0-1.0) H Urine Leukocyte Esterase 3+ (NEGATIVE) H Urine RBC Tntc /HPF (0 - 2) H Urine WBC Tntc /HPF (0 - 2) H Urine Squamous Epithelial Cells None /LPF (NONE/OCC) Urine Bacteria Many /HPF (NONE) H White Blood Count 14.7 K/UL (4.8-10.8) #H Red Blood Count 4.97 M/UL (4.20-5.40) Hemoglobin 13.6 G/DL (12.0-16.0) Hematocrit 42.1 % (37.0-47.0) Mean Corpuscular Volume 85 FL (80-99) Mean Corpuscular Hemoglobin 27.5 PG (27.0-31.0) Mean Corpuscular Hemoglobin Concent 32.4 G/DL (32.0-36.0) Red Cell Distribution Width 12.9 % (11.6-14.8) Platelet Count 228 K/UL (150-450) Mean Platelet Volume 8.9 FL (6.5-10.1) Neutrophils (%) (Auto) % (45.0-75.0) Lymphocytes (%) (Auto) % (20.0-45.0) Monocytes (%) (Auto) % (1.0-10.0) Eosinophils (%) (Auto) % (0.0-3.0) Basophils (%) (Auto) % (0.0-2.0) Neutrophils % (Manual) Pending Lymphocytes % (Manual) Pending Platelet Estimate Pending Platelet Morphology Pending Sodium Level 140 MMOL/L (136-145) Potassium Level 3.6 MMOL/L (3.5-5.1) Chloride Level 104 MMOL/L (98-107) Carbon Dioxide Level 26 MMOL/L (21-32) Anion Gap 10 mmol/L (5-15) Blood Urea Nitrogen 13 mg/dL (7-18) Creatinine 0.8 MG/DL (0.55-1.30) Estimat Glomerular Filtration Rate > 60 mL/min (>60) Glucose Level 115 MG/DL (74-106) H Calcium Level 10.0 MG/DL (8.5-10.1) Total Bilirubin 0.5 MG/DL (0.2-1.0) Aspartate Amino Transf (AST/SGOT) 29 U/L (15-37) Alanine Aminotransferase (ALT/SGPT) 48 U/L (12-78) Alkaline Phosphatase 69 U/L (46-116) Total Protein 7.8 G/DL (6.4-8.2) Albumin 3.2 G/DL (3.4-5.0) L Globulin 4.6 g/dL Albumin/Globulin Ratio 0.7 (1.0-2.7) L General: well developed, no acute distress, other - illappearing Head: normocophalic, atraumatic Neck: other - rigid Neurologic Exam Mental Status: awake, other - very confused " i will " age-31 " follows command, slow Speech: normal speech, no dysarthia Language: normal language, no aphasia Cranial Nerve II: fundus normal, visual fish, no papilledema Cranial Nerves III, IV, : PERRLA, EOMI, pupils Cranial Nerve V: normal facial sensations Cranial Nerve VII: no facial asymmetry, normal facial expressions Cranial Nerve VIII: normal hearing, no nystagmus Cranial Nerve IX: normal palate elevation, gag response Cranial Nerve X: no voice hoarseness Cranial Nerve XI: SCM symmetric, trapezii function normal Cranial Nerve XII: tongue midline, no tongue atrophy/fasciculations Motor System: other - tremor arms. titubation dyskinesia arms Sensory: normal pinprick Coordination: other Deep Tendon Reflexes: 1+ bicep (L), 1+ bicep (R), 1+ tricep (L), 1+ tricep (R) , 1+ brachioradialis (L), 1+ brachioradialis (R), 1+ knee (L), 1+ knee (R), 1+ ankle (L), 1+ ankle (R) Reflexes: mute plantar (L), mute plantar (R) Impression/Recommendations Problems: (1) recurrent generalised seizure activity (2) Alzheimer's dementia (3) UTI (urinary tract infection) Status: stable, not improved Recommendations #[id number] EEG CT rafita yeboahra 500mg bid JOSE MARIA RAYA Jan 26, 2018 11:04
[2018-01-26 12:00] VITALS: BP 125/86
--- NOTE | 2018-01-26 13:06 | General Progress Note ---
Assessment/Plan Status: stable Assessment/Plan 1. Encephalopathy. 2. Dementia - Alzheimer's type. 3. Renal failure - age indeterminate. 4. Hypercalcemia. 5. Abnormal blood sugar. 6. Hypokalemia. 7. Abnormal serum BNP. 8. Deconditioning. 9. Psychiatric disorder. 10 . Obstructive urophathy 11. Leukocytosis: likley reactive to Sz activity. 12. Recurrent Sz activity Plan: Ok to followup as outpatient, once clear by psych Needs facility placement. CM working on Dr Navas, notified. He requested me to continue my care. Consulted Neuro Sz precaution Empirical antibiotic based on reported Puss in the urine.". Pending ID input Urology is consulted Subjective ROS Limited/Unobtainable: Yes - AOX1 Allergies: Coded Allergies: No Known Allergies (Unverified , 01/21/18) Objective Last 24 Hour Vital Signs Date Time Temp Pulse Resp B/P (MAP) Pulse Ox O2 Delivery O2 Flow Rate FiO2 01/26/18 12:00 97.5 121 20 125/86 97 97.5 01/26/18 09:25 135 133/77 01/26/18 08:00 97.7 132 22 132/80 95 97.7 01/26/18 04:00 100 01/26/18 04:00 98.9 99 17 133/77 100 98.9 01/26/18 01:00 97.9 120 20 153/79 99 97.9 01/26/18 00:00 109 01/25/18 20:00 98.1 133 98.1 01/25/18 20:00 98.1 133 20 120/47 98 98.1 01/25/18 16:18 98.8 124 24 162/93 99 Room Air 98.8 01/25/18 13:54 118 Intake and Output 01/25/18 01/26/18 19:00 07:00 Intake Total 600 ml 1105 ml Output Total 650 ml Balance 600 ml 455 ml Intake Oral 0 ml IV Total 600 ml 625 ml Other 480 ml Output Urine Total 650 ml # Voids 1 # Bowel Movements 3 Laboratory Tests 01/25/18 13:50: Urine Eosinophils None seen 01/26/18 01:20: Urine Color Yellow, Urine Appearance Turbid, Urine pH 6, Urine Specific [place] 1.025, Urine Protein 3+H, Urine Glucose (UA) Negative, Urine Ketones 1+H, Urine Occult Blood 5+H, Urine Nitrite PositiveH, Urine Bilirubin Negative, Urine Urobilinogen 1H, Urine Leukocyte Esterase 3+H, Urine RBC TntcH, Urine WBC TntcH , Urine Squamous Epithelial Cells None, Urine Bacteria ManyH 01/26/18 08:30: White Blood Count 14.7#H, Red Blood Count 4.97, Hemoglobin 13.6, Hematocrit 42.1 , Mean Corpuscular Volume 85, Mean Corpuscular Hemoglobin 27.5, Mean Corpuscular Hemoglobin Concent 32.4, Red Cell Distribution Width 12.9, Platelet Count 228, Mean Platelet Volume 8.9, Neutrophils (%) (Auto) , Lymphocytes (%) ( Auto) , Monocytes (%) (Auto) , Eosinophils (%) (Auto) , Basophils (%) (Auto) , Differential Total Cells Counted 100, Neutrophils % (Manual) 82H, Lymphocytes % (Manual) 12L, Monocytes % (Manual) 6, Eosinophils % (Manual) 0, Basophils % ( Manual) 0, Band Neutrophils 0, Platelet Estimate Adequate, Platelet Morphology Normal, Red Blood Cell Morphology Normal, Sodium Level 140, Potassium Level 3.6 , Chloride Level 104, Carbon Dioxide Level 26, Anion Gap 10, Blood Urea Nitrogen 13, Creatinine 0.8, Estimat Glomerular Filtration Rate > 60, Glucose Level 115H, Calcium Level 10.0, Total Bilirubin 0.5, Aspartate Amino Transf (AST /SGOT) 29, Alanine Aminotransferase (ALT/SGPT) 48, Alkaline Phosphatase 69, Total Protein 7.8, Albumin 3.2L, Globulin 4.6, Albumin/Globulin Ratio 0.7L Height (Feet): 5 Height (Inches): 9.00 Weight (Pounds): 117 General Appearance: no apparent distress EENT: PERRL/EOMI Neck: supple Cardiovascular: normal rate Respiratory/Chest: lungs clear Abdomen: soft Genitourinary/Rectal: other - Not examined Extremities: non-tender 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
[2018-01-26] MEDS: Haloperidol 5mg/ml Inj IM PRN (14:09)
--- NOTE | 2018-01-26 15:05 | Consultation ---
TYRELL MONTES DE OCA M.D. Jan 26, 2018 15:05
--- NOTE | 2018-01-26 15:19 | Consultation ---
Consult Note Consult Note ID DIC # [id number] TYRELL MONTES DE OCA M.D. Jan 26, 2018 15:19
[2018-01-26 16:00] VITALS: BP 150/74
--- NOTE | 2018-01-26 17:45 | Electroencephalogram ---
DATE OF PROCEDURE: 01/26/2018 REQUESTING PHYSICIAN: Sincere Pang M.D. READING PHYSICIAN: Guillermo Burns M.D. PROCEDURE PERFORMED: Electroencephalography. HISTORY: This is a 67-year-old female, presented with recurrent seizures, currently started on Keppra and Ativan p.r.n. BACKGROUND: Abnormalities include hypertension, dementia, and old history of seizure activity. TECHNIQUE: EEG was done using 18 electrodes placed scalp to scalp, scalp to ear montages according to 10/20 International System. During the recording, the patient was asleep, stuporous, obtunded, and poorly cooperative. Throughout the recording, background activity consisted of a poorly organized, heavily contaminated by EMG and movement artifacts with in and out being sleep stage. Most wakeful portions characterized by low to medium voltage, 7-8 cycles per second theta activities bilaterally. Intermittently generalized slowing in the theta range noted corresponding to sleep stages. There was no spike and wave activity. No asymmetry from side to side. IMPRESSION: Abnormal electroencephalogram with mild diffuse slowing. COMMENT: Above abnormality is a nonspecific finding, may reflect underlying toxic metabolic or diffuse structural lesions as well as postictal state. Absence of paroxysmal event on a single recording does not rule out seizure disorder. Guillermo Burns M.D. DR: CATY JOB#: [id number] CC:
--- NOTE | 2018-01-26 18:02 | Cardiology Progress Note ---
Assessment/Plan Assessment/Plan 1. Sinus tachycardia, resolved, continue hydration, no e/o hyperthyroidism, echo reveals normal LV systolic function with normal intracardiac filling pressure. 2. Normal LV systolic function with LVEF of approximately 60% to 65%. 3. Mild pulmonary hypertension. Subjective Subjective Sinus rhythm at 80. Objective Last 24 Hour Vital Signs Date Time Temp Pulse Resp B/P (MAP) Pulse Ox O2 Delivery O2 Flow Rate FiO2 01/26/18 16:00 125 01/26/18 16:00 98.1 120 20 150/74 97 98.1 01/26/18 12:00 130 01/26/18 12:00 97.5 121 20 125/86 97 97.5 01/26/18 09:25 135 133/77 01/26/18 08:00 97.7 132 22 132/80 95 97.7 01/26/18 04:00 100 01/26/18 04:00 98.9 99 17 133/77 100 98.9 01/26/18 01:00 97.9 120 20 153/79 99 97.9 01/26/18 00:00 109 01/25/18 20:00 98.1 133 98.1 01/25/18 20:00 98.1 133 20 120/47 98 98.1 Intake and Output 01/25/18 01/26/18 19:00 07:00 Intake Total 600 ml 1105 ml Output Total 650 ml Balance 600 ml 455 ml Intake Oral 0 ml IV Total 600 ml 625 ml Other 480 ml Output Urine Total 650 ml # Voids 1 # Bowel Movements 3 2D Echo: LVEF 65%, Grade I LVDD, Mild-Mod MR, RVSP 41 mmHg, Laboratory Tests Test 01/26/18 01:20 01/26/18 08:30 Urine Color Yellow Urine Appearance Turbid Urine pH 6 (4.5-8.0) Urine Specific [place] 1.025 (1.005-1.035) Urine Protein 3+ (NEGATIVE) H Urine Glucose (UA) Negative (NEGATIVE) Urine Ketones 1+ (NEGATIVE) H Urine Occult Blood 5+ (NEGATIVE) H Urine Nitrite Positive (NEGATIVE) H Urine Bilirubin Negative (NEGATIVE) Urine Urobilinogen 1 MG/DL (0.0-1.0) H Urine Leukocyte Esterase 3+ (NEGATIVE) H Urine RBC Tntc /HPF (0 - 2) H Urine WBC Tntc /HPF (0 - 2) H Urine Squamous Epithelial Cells None /LPF (NONE/OCC) Urine Bacteria Many /HPF (NONE) H White Blood Count 14.7 K/UL (4.8-10.8) #H Red Blood Count 4.97 M/UL (4.20-5.40) Hemoglobin 13.6 G/DL (12.0-16.0) Hematocrit 42.1 % (37.0-47.0) Mean Corpuscular Volume 85 FL (80-99) Mean Corpuscular Hemoglobin 27.5 PG (27.0-31.0) Mean Corpuscular Hemoglobin Concent 32.4 G/DL (32.0-36.0) Red Cell Distribution Width 12.9 % (11.6-14.8) Platelet Count 228 K/UL (150-450) Mean Platelet Volume 8.9 FL (6.5-10.1) Neutrophils (%) (Auto) % (45.0-75.0) Lymphocytes (%) (Auto) % (20.0-45.0) Monocytes (%) (Auto) % (1.0-10.0) Eosinophils (%) (Auto) % (0.0-3.0) Basophils (%) (Auto) % (0.0-2.0) Differential Total Cells Counted 100 Neutrophils % (Manual) 82 % (45-75) H Lymphocytes % (Manual) 12 % (20-45) L Monocytes % (Manual) 6 % (1-10) Eosinophils % (Manual) 0 % (0-3) Basophils % (Manual) 0 % (0-2) Band Neutrophils 0 % (0-8) Platelet Estimate Adequate Platelet Morphology Normal Red Blood Cell Morphology Normal Sodium Level 140 MMOL/L (136-145) Potassium Level 3.6 MMOL/L (3.5-5.1) Chloride Level 104 MMOL/L (98-107) Carbon Dioxide Level 26 MMOL/L (21-32) Anion Gap 10 mmol/L (5-15) Blood Urea Nitrogen 13 mg/dL (7-18) Creatinine 0.8 MG/DL (0.55-1.30) Estimat Glomerular Filtration Rate > 60 mL/min (>60) Glucose Level 115 MG/DL (74-106) H Calcium Level 10.0 MG/DL (8.5-10.1) Total Bilirubin 0.5 MG/DL (0.2-1.0) Aspartate Amino Transf (AST/SGOT) 29 U/L (15-37) Alanine Aminotransferase (ALT/SGPT) 48 U/L (12-78) Alkaline Phosphatase 69 U/L (46-116) Total Protein 7.8 G/DL (6.4-8.2) Albumin 3.2 G/DL (3.4-5.0) L Globulin 4.6 g/dL Albumin/Globulin Ratio 0.7 (1.0-2.7) L Objective HEENT: Atraumatic and normocephalic. Anicteric. Pupils are equal, round, and reactive to light and accommodation. Extraocular muscles intact. NECK: JVP is less than 5 cm. No carotid bruits. Carotid upstrokes 2+ bilaterally. CARDIOVASCULAR: Normal S1 and S2. Regular rate and rhythm. No murmurs, gallops, or rubs. PMI is at the fourth intercostal space in the midclavicular line. LUNGS: Clear to auscultation bilaterally. ABDOMEN: Soft, nontender, and nondistended. No hepatosplenomegaly. Positive bowel sounds. EXTREMITIES: No evidence of edema, clubbing, or cyanosis. TAURUS VASQUEZ Jan 26, 2018 18:02
--- NOTE | 2018-01-26 19:47 | General Progress Note ---
Assessment/Plan Problem List: (1) Altered level of consciousness ICD Codes: R40.4 - Transient alteration of awareness SNOMED: 0499357 (2) Altered mental status ICD Codes: R41.82 - Altered mental status, unspecified SNOMED: 259185945 (3) Hypertension ICD Codes: I10 - Essential (primary) hypertension SNOMED: 07200596 (4) Confused Assessment & Plan: [place] I Dementia with behavior disturbance. PLAN: 1. We will start the patient on Seroquel 25 mg every four hours p.r.n. with anxiety and agitation. We will discontinue the Ativan. 2. We will continue to follow and readjust the medications. ICD Codes: R41.0 - Disorientation, unspecified SNOMED: 971741603 (5) Alzheimer's dementia Assessment & Plan: [place] I Dementia with behavior disturbance. PLAN: 1. We will start the patient on Seroquel 25 mg every four hours p.r.n. with anxiety and agitation. We will discontinue the Ativan. 2. We will continue to follow and readjust the medications. ICD Codes: G30.9 - Alzheimer's disease, unspecified; F02.80 - Dementia in other diseases classified elsewhere without behavioral disturbance SNOMED: 48312973 Qualifiers: (6) Elevated brain natriuretic peptide (BNP) level ICD Codes: R79.89 - Other specified abnormal findings of blood chemistry SNOMED: 825172909, 128861699 (7) Renal failure ICD Codes: N19 - Unspecified kidney failure SNOMED: 20408538 (8) Tachycardia ICD Codes: R00.0 - Tachycardia, unspecified SNOMED: 9839248 Assessment/Plan ASSESSMENT: [place] I Dementia with behavior disturbance. seizure last night PLAN: 1. dc Seroquel 25 mg every four hours p.r.n. with anxiety and agitation. 2. cont haldol im prn 3. start zyprexa Subjective Date patient seen: Jan 26, 2018 Neurologic/Psychiatric: Reports: anxiety, depressed, emotional problems Allergies: Coded Allergies: No Known Allergies (Unverified , 01/21/18) Subjective the pt cont to be agitated. appetite is good not combative attempts to come out of bed. haldol more effective Objective Last 24 Hour Vital Signs Date Time Temp Pulse Resp B/P (MAP) Pulse Ox O2 Delivery O2 Flow Rate FiO2 01/26/18 16:00 125 01/26/18 16:00 98.1 120 20 150/74 97 98.1 01/26/18 12:00 130 01/26/18 12:00 97.5 121 20 125/86 97 97.5 01/26/18 09:25 135 133/77 01/26/18 08:00 97.7 132 22 132/80 95 97.7 01/26/18 04:00 100 01/26/18 04:00 98.9 99 17 133/77 100 98.9 01/26/18 01:00 97.9 120 20 153/79 99 97.9 01/26/18 00:00 109 01/25/18 20:00 98.1 133 98.1 01/25/18 20:00 98.1 133 20 120/47 98 98.1 Intake and Output 01/25/18 01/26/18 19:00 07:00 Intake Total 600 ml 1105 ml Output Total 650 ml Balance 600 ml 455 ml Intake Oral 0 ml IV Total 600 ml 625 ml Other 480 ml Output Urine Total 650 ml # Voids 1 # Bowel Movements 3 Laboratory Tests 01/26/18 01:20: Urine Color Yellow, Urine Appearance Turbid, Urine pH 6, Urine Specific [place] 1.025, Urine Protein 3+H, Urine Glucose (UA) Negative, Urine Ketones 1+H, Urine Occult Blood 5+H, Urine Nitrite PositiveH, Urine Bilirubin Negative, Urine Urobilinogen 1H, Urine Leukocyte Esterase 3+H, Urine RBC TntcH, Urine WBC TntcH , Urine Squamous Epithelial Cells None, Urine Bacteria ManyH 01/26/18 08:30: White Blood Count 14.7#H, Red Blood Count 4.97, Hemoglobin 13.6, Hematocrit 42.1 , Mean Corpuscular Volume 85, Mean Corpuscular Hemoglobin 27.5, Mean Corpuscular Hemoglobin Concent 32.4, Red Cell Distribution Width 12.9, Platelet Count 228, Mean Platelet Volume 8.9, Neutrophils (%) (Auto) , Lymphocytes (%) ( Auto) , Monocytes (%) (Auto) , Eosinophils (%) (Auto) , Basophils (%) (Auto) , Differential Total Cells Counted 100, Neutrophils % (Manual) 82H, Lymphocytes % (Manual) 12L, Monocytes % (Manual) 6, Eosinophils % (Manual) 0, Basophils % ( Manual) 0, Band Neutrophils 0, Platelet Estimate Adequate, Platelet Morphology Normal, Red Blood Cell Morphology Normal, Sodium Level 140, Potassium Level 3.6 , Chloride Level 104, Carbon Dioxide Level 26, Anion Gap 10, Blood Urea Nitrogen 13, Creatinine 0.8, Estimat Glomerular Filtration Rate > 60, Glucose Level 115H, Calcium Level 10.0, Total Bilirubin 0.5, Aspartate Amino Transf (AST /SGOT) 29, Alanine Aminotransferase (ALT/SGPT) 48, Alkaline Phosphatase 69, Total Protein 7.8, Albumin 3.2L, Globulin 4.6, Albumin/Globulin Ratio 0.7L Height (Feet): 5 Height (Inches): 9.00 Weight (Pounds): 117 General Appearance: no apparent distress, lethargic, confused Ender Alvarez M.D. Jan 26, 2018 19:47
[2018-01-26 19:50] VITALS: BP 106/69
[2018-01-26] MEDS ORDERED: Vancomycin 500 MG in NS 110 ML IVPB SCH (21:30)
[2018-01-26] MEDS: Latanoprost 0.005% Opth 2.5ml Soln BOTH EYES SCH (22:04)
--- NOTE | 2018-01-26 23:00 | Consultation ---
DATE OF CONSULTATION: 01/26/2018 INFECTIOUS DISEASE CONSULTATION CONSULTING PHYSICIAN: Harsh Urias M.D. REQUESTING PHYSICIAN: Elvis Lofton M.D. REASON FOR CONSULTATION: Evaluation of the patient for UTI with sepsis, antibiotic management. HISTORY OF PRESENT ILLNESS: The patient is a 67-year-old female, who was admitted from home for altered level of consciousness. The patient's mental status has improved. However, the patient has leukocytosis and was evident that there is pyuria. Infectious Disease consultation has been requested for evaluation of the patient for urinary tract infection. PAST MEDICAL HISTORY: 1. Dementia. 2. Hypertension. 3. Diabetes. MEDICATIONS: IV vancomycin and Cefepime day #1. ALLERGIES: No known drug allergies. SOCIAL HISTORY: The patient lives at home. FAMILY HISTORY: Unavailable. REVIEW OF SYSTEMS: Limited. Much of the information I was able to gather as mentioned above. PHYSICAL EXAMINATION: VITAL SIGNS: Temperature 97.5 degrees, blood pressure 125/83, pulse 86, and respiratory rate 18. HEENT: No pale conjunctivae. No icterus. NECK: No lymphadenopathy. CHEST: Clear. HEART: S1 and S2. ABDOMEN: Soft and nontender. GENITOURINARY: Espinoza catheter in place. EXTREMITIES: No cyanosis at this time. NEUROLOGIC: Awake. LABORATORY AND DIAGNOSTIC DATA: White blood cells 14, hemoglobin 13, and platelets 228. UA shows too numerous to count red blood cells and too numerous to count white blood cells. BUN 13 and creatinine 0.8. Liver function tests are unremarkable. Head CT, no acute event Ultrasound of the kidney, thickened urinary bladder suggests cystitis. Chest x-ray, [facility]. ASSESSMENT: The patient is a 67-year-old female with, 1. Leukocytosis. 2. Pyuria/probable urinary tract infection. 3. Ultrasound showed evidence of cystitis. 4. Altered level of consciousness, off of antibiotics. PLAN: 1. We will continue the patient on IV cefepime, hold vancomycin. 2. Monitor CBC. 3. Monitor BMP. 4. Monitor cultures (blood and urine). 5. Monitor chest x-ray. 6. Based on clinical course and labs, we will do further recommendation. Thank you, Dr. Lofton, for allowing me to participate in the care of this patient. I will follow the patient with you during this hospitalization. Harsh Urias M.D. DR: MALIK JOB#: [id number] CC:
[2018-01-27] VITALS (7 sets, daily range): BP systolic 115–157; BP diastolic 61–99
[2018-01-27] MEDS: LORazepam Inj 2mg/ml 1ml IV PRN (03:45)
--- NOTE | 2018-01-27 05:00 | Consultation ---
DATE OF CONSULTATION: 01/26/2018 UROLOGY CONSULTATION ATTENDING/CONSULTING PHYSICIAN: Elvis Lofton M.D. CHIEF COMPLAINT AND HISTORY OF PRESENT ILLNESS: I was asked by Dr. Lofton to evaluate this 67-year-old unfortunate, female regarding history of urinary retention in the setting of significant psychiatric disease and Alzheimer's. Briefly, the patient has a history of mental health problems. She was brought in by EMS for being more altered than baseline. She has been maintained on Haldol for psychiatric problems in the past. During the course of her hospitalization, she was noted to have evidence of urinary retention. A Espinoza catheter was initially in place, but when it was removed, the patient cannot urinate without it. It was replaced and I was asked to evaluate the patient. The patient cannot provide any useful information due to her mental status and her underlying illness. Most of the information is gathered from the chart. PAST MEDICAL HISTORY: 1. Psychotic disorder/psychiatric disorder. 2. Alzheimer type dementia. 3. Hypertension. 4. Renal insufficiency. 5. Apparent urinary retention. PAST SURGICAL HISTORY: Unknown. MEDICATIONS: Please see the chart for current medications and administration details. Briefly, the patient is on oxybutynin for unclear reasons. ALLERGIES: No known drug allergies. SOCIAL HISTORY: Unobtainable. FAMILY HISTORY: Noncontributory. REVIEW OF SYSTEMS: A 12-system review of systems cannot be done as the patient cannot cooperate with questioning. PHYSICAL EXAMINATION: GENERAL: The patient is an elderly female, in no obvious distress. HEENT: NC/AT. NECK: Supple. Oropharynx clear. CHEST: Within normal limits. ABDOMEN: Soft, nontender, and nondistended. BACK: No CVA tenderness to percussion. GENITOURINARY: Reveals a Espinoza catheter in place with clear yellow urine output. EXTREMITIES: Warm and well perfused. No cyanosis, clubbing, or edema. LABORATORY AND DIAGNOSTIC DATA: White blood cell count 14.7, hematocrit 42.1, and platelets 228,000. Sodium 140, potassium 3.6, chloride 104, bicarbonate 26, BUN 13, creatinine 0.8, glucose 116, and calcium 10.0. LFTs within normal limits. Urinalysis, specific gravity 1.025 and pH 6.0. Dip test notable for 3+ protein, 1+ ketones, 5+ occult blood, positive nitrites, and 3+ leukocyte esterase. No culture is noted or culture is pending. The patient is on cefepime for antibiotic coverage and also previously received vancomycin. Diagnostic imaging, renal bladder ultrasound reveals negative exam of the kidneys and thickened bladder wall. Espinoza catheter is in place. ASSESSMENT AND PLAN: In summary, the patient is a 67-year-old female with history of extensive psychiatric disorder, presenting with altered mental status. A Espinoza catheter was used to drain her bladder, but was removed and the patient suffered from urinary retention. She also has evidence of urinary tract infection, but is receiving cefepime and received vancomycin earlier. For some unknown reason, the patient is on oxybutynin as well. Physical exam is unremarkable outside of altered female. The Espinoza is draining well. Laboratory data reveals evidence of some renal insufficiency. Renal bladder ultrasound is unremarkable. I recommend stopping the oxybutynin immediately as the patient is suffering from retention and this is not going to help. She will be continued on her antibiotics and culture results can dictate whether or not they should be changed as she appears to still have urinary tract infection. As far as a source of retention, I suspect that her psychiatric medications may be responsible, but obviously oxybutynin is not helping. Full understanding of whether or not the patient has some bladder function, could only be done as an outpatient with urodynamic testing, cystoscopy, etc. in the setting of being off psychiatric medications and this seems both impractical and likely impossible. The patient will likely need to remain on Espinoza catheterization or in and out catheterization during this hospitalization and afterwards as well until such a workup could be tried if possible. Thank you for allowing participate in the care of this unfortunate lady. Please do not hesitate to contact me with any questions that you may further have regarding her care. I will see her with you as needed. Ministerio Gutierres M.D. DR: Claudy JOB#: [id number] CC:
[2018-01-27] MEDS: NovoLOG Insulin Flexpen SUBQ SCH ×4 (06:30→21:00)
[2018-01-27] MEDS: OLANZapine 2.5mg tab ORAL SCH (09:08)
[2018-01-27] MEDS: Vitamin D 1000 IU Tab ORAL SCH (09:08)
[2018-01-27] MEDS: Cefepime HCl 2 GM in NS 110 ML IV SCH (09:09)
[2018-01-27] MEDS: Heparin 5000 units/ml inj SUBQ SCH ×2 (09:11→22:59)
--- NOTE | 2018-01-27 10:25 | General Progress Note ---
Assessment/Plan Status: stable Assessment/Plan 1. Encephalopathy. 2. Dementia - Alzheimer's type. 3. Renal failure - age indeterminate. 4. Hypercalcemia. 5. Abnormal blood sugar. 6. Hypokalemia. 7. Abnormal serum BNP. 8. Deconditioning. 9. Psychiatric disorder. 10 . Obstructive urophathy 11. Leukocytosis: likley reactive to Sz activity. 12. Recurrent Sz activity Plan: Ok to followup as outpatient, once clear by psych Needs facility placement. CM working on Dr Navas, notified. He requested me to continue my care. Consulted Neuro Sz precaution optimized antibiotic based on reported Puss in the urine.". Pending ID input Urology is consulted Recurrent sz activity, will monitor Subjective ROS Limited/Unobtainable: Yes Allergies: Coded Allergies: No Known Allergies (Unverified , 01/21/18) Objective Last 24 Hour Vital Signs Date Time Temp Pulse Resp B/P (MAP) Pulse Ox O2 Delivery O2 Flow Rate FiO2 01/27/18 09:08 112 148/79 01/27/18 08:00 97.8 112 18 148/79 99 97.8 01/27/18 08:00 110 01/27/18 04:00 97.8 72 18 115/61 100 97.8 01/27/18 03:55 100 01/27/18 00:00 94 01/27/18 00:00 97.3 80 18 120/67 100 97.3 01/26/18 19:55 93 01/26/18 19:50 97.7 89 19 106/69 100 97.7 01/26/18 16:00 125 01/26/18 16:00 98.1 120 20 150/74 97 98.1 01/26/18 12:00 130 01/26/18 12:00 97.5 121 20 125/86 97 97.5 Intake and Output 01/26/18 01/27/18 19:00 07:00 Intake Total 1460.000 ml 600 ml Output Total 1750 ml 475 ml Balance -290.000 ml 125 ml Intake Oral 600 ml 150 ml IV Total 860.000 ml 450 ml Output Urine Total 1750 ml 475 ml Height (Feet): 5 Height (Inches): 9.00 Weight (Pounds): 117 General Appearance: no apparent distress EENT: PERRL/EOMI Neck: supple Cardiovascular: normal rate Respiratory/Chest: lungs clear Abdomen: soft Extremities: other - No gross focal deficiet Neurologic: disoriented, other - AOx 1 Elvis Lofton MD Jan 27, 2018 10:25
[2018-01-27 11:54] LABS: BASOPHILS % (AUTO) 1.4 % (0.0-2.0); HEMOGLOBIN 12.9 G/DL (12.0-16.0); LYMPHOCYTES % (AUTO) 17.2 % (20.0-45.0); MEAN CORPUSCULAR VOLUME 86 FL (80-99); MONOCYTES % (AUTO) 9.6 % (1.0-10.0); NEUTROPHILS % (AUTO) 71.8 % (45.0-75.0); PLATELET COUNT 243 K/UL (150-450); RED BLOOD COUNT 4.66 M/UL (4.20-5.40); RED CELL DISTRIBUTION WIDTH 12.8 % (11.6-14.8); WHITE BLOOD COUNT 7.8 K/UL (4.8-10.8)
--- NOTE | 2018-01-27 12:40 | Neurology Progress Note ---
Interim History Interim History ROS Limited/Unobtainable: Yes Complaints: weakness Events: last night with episode of facial, arm twitching Objective Physical Exam Last Vital Signs Date Time Temp Pulse Resp B/P (MAP) Pulse Ox O2 Delivery O2 Flow Rate FiO2 01/27/18 09:08 112 148/79 01/27/18 08:00 97.8 18 99 97.8 01/25/18 16:18 Room Air 01/24/18 04:00 98.0 Laboratory Tests Test 01/27/18 11:00 White Blood Count 7.8 K/UL (4.8-10.8) Red Blood Count 4.66 M/UL (4.20-5.40) Hemoglobin 12.9 G/DL (12.0-16.0) Hematocrit 40.0 % (37.0-47.0) Mean Corpuscular Volume 86 FL (80-99) Mean Corpuscular Hemoglobin 27.7 PG (27.0-31.0) Mean Corpuscular Hemoglobin Concent 32.2 G/DL (32.0-36.0) Red Cell Distribution Width 12.8 % (11.6-14.8) Platelet Count 243 K/UL (150-450) Mean Platelet Volume 8.8 FL (6.5-10.1) Neutrophils (%) (Auto) 71.8 % (45.0-75.0) Lymphocytes (%) (Auto) 17.2 % (20.0-45.0) L Monocytes (%) (Auto) 9.6 % (1.0-10.0) Eosinophils (%) (Auto) 0.0 % (0.0-3.0) Basophils (%) (Auto) 1.4 % (0.0-2.0) General: well developed, no acute distress, other - ill appearing Head: normocophalic, atraumatic Neck: other - rigid Neurologic Exam Mental Status: awake, other - follows command, slow, mood better, more coherent Speech: normal speech, no dysarthia Language: normal language, no aphasia Cranial Nerve II: fundus normal, visual fish, no papilledema Cranial Nerves III, IV, : PERRLA, EOMI, pupils Cranial Nerve V: normal facial sensations Cranial Nerve VII: no facial asymmetry, normal facial expressions Cranial Nerve VIII: normal hearing, no nystagmus Cranial Nerve IX: normal palate elevation, gag response Cranial Nerve X: no voice hoarseness Cranial Nerve XI: SCM symmetric, trapezii function normal Cranial Nerve XII: tongue midline, no tongue atrophy/fasciculations Motor System: other - tremor arms. titubation dyskinesia arms Sensory: normal pinprick Coordination: other Deep Tendon Reflexes: 1+ bicep (L), 1+ bicep (R), 1+ tricep (L), 1+ tricep (R) , 1+ brachioradialis (L), 1+ brachioradialis (R), 1+ knee (L), 1+ knee (R), 1+ ankle (L), 1+ ankle (R) Reflexes: mute plantar (L), mute plantar (R) Impression/Recommendations Problems: (1) Extrapyramidal movement disorder, drug-induced (2) recurrent generalised seizure activity (3) Alzheimer's dementia (4) UTI (urinary tract infection) Status: stable Recommendations #[id number] EEG no sz noted CT rafita ambriz keppra 500mg bid cogentin 2mg bid JOSE MARIA RAYA Jan 27, 2018 12:40
[2018-01-27] MEDS ORDERED: Benztropine 1mg tab ORAL SCH (13:15)
--- NOTE | 2018-01-27 16:06 | General Progress Note ---
Assessment/Plan Problem List: (1) Altered mental status ICD Codes: R41.82 - Altered mental status, unspecified SNOMED: 324920080 (2) Confused Assessment & Plan: [place] I Dementia with behavior disturbance. PLAN: 1. We will start the patient on Seroquel 25 mg every four hours p.r.n. with anxiety and agitation. We will discontinue the Ativan. 2. We will continue to follow and readjust the medications. ICD Codes: R41.0 - Disorientation, unspecified SNOMED: 000476911 (3) Alzheimer's dementia Assessment & Plan: [place] I Dementia with behavior disturbance. PLAN: 1. We will start the patient on Seroquel 25 mg every four hours p.r.n. with anxiety and agitation. We will discontinue the Ativan. 2. We will continue to follow and readjust the medications. ICD Codes: G30.9 - Alzheimer's disease, unspecified; F02.80 - Dementia in other diseases classified elsewhere without behavioral disturbance SNOMED: 74076405 Qualifiers: (4) Tachycardia ICD Codes: R00.0 - Tachycardia, unspecified SNOMED: 2052652 Status: stable Assessment/Plan ASSESSMENT: [place] I Dementia with behavior disturbance. seizure last night PLAN: 1. dc Seroquel 25 mg every four hours p.r.n. with anxiety and agitation. 2. cont haldol im prn 3. start zyprexa Subjective Date patient seen: Jan 27, 2018 Neurologic/Psychiatric: Reports: anxiety, depressed Allergies: Coded Allergies: No Known Allergies (Unverified , 01/21/18) Subjective the pt less agitated and calm now. confused and not engaged Objective Last 24 Hour Vital Signs Date Time Temp Pulse Resp B/P (MAP) Pulse Ox O2 Delivery O2 Flow Rate FiO2 01/27/18 12:00 98.1 115 18 157/75 99 98.1 01/27/18 12:00 121 01/27/18 09:08 112 148/79 01/27/18 08:00 97.8 112 18 148/79 99 97.8 01/27/18 08:00 110 01/27/18 04:00 97.8 72 18 115/61 100 97.8 01/27/18 03:55 100 01/27/18 00:00 94 01/27/18 00:00 97.3 80 18 120/67 100 97.3 01/26/18 19:55 93 01/26/18 19:50 97.7 89 19 106/69 100 97.7 Intake and Output 01/26/18 01/27/18 19:00 07:00 Intake Total 1460.000 ml 600 ml Output Total 1750 ml 475 ml Balance -290.000 ml 125 ml Intake Oral 600 ml 150 ml IV Total 860.000 ml 450 ml Output Urine Total 1750 ml 475 ml Laboratory Tests 01/27/18 11:00: White Blood Count 7.8, Red Blood Count 4.66, Hemoglobin 12.9, Hematocrit 40.0, Mean Corpuscular Volume 86, Mean Corpuscular Hemoglobin 27.7, Mean Corpuscular Hemoglobin Concent 32.2, Red Cell Distribution Width 12.8, Platelet Count 243, Mean Platelet Volume 8.8, Neutrophils (%) (Auto) 71.8, Lymphocytes (%) (Auto) 17.2L, Monocytes (%) (Auto) 9.6, Eosinophils (%) (Auto) 0.0, Basophils (%) (Auto ) 1.4 Height (Feet): 5 Height (Inches): 9.00 Weight (Pounds): 117 General Appearance: no apparent distress, alert, confused Ender Alvarez M.D. Jan 27, 2018 16:06
[2018-01-27] MEDS ORDERED: LORazepam Inj 2mg/ml 1ml IV PRN (16:45)
[2018-01-27] MEDS ORDERED: Tylenol #3 tab (300mg/30mg) ORAL PRN (16:58)
[2018-01-27] MEDS ORDERED: Haloperidol 5mg/ml Inj IM PRN (16:58)
[2018-01-27] MEDS ORDERED: Miralax 17gm pkt ORAL PRN (16:59)
[2018-01-27] MEDS: Benztropine 1mg tab ORAL SCH (17:37)
[2018-01-27] MEDS: Latanoprost 0.005% Opth 2.5ml Soln BOTH EYES SCH (21:00)
--- NOTE | 2018-01-27 21:35 | Infectious Diseases Prog Note ---
Assessment/Plan Assessment/Plan ASSESSMENT: The patient is a 67-year-old female with, Leukocytosis. Pyuria/probable urinary tract infection. Ultrasound showed evidence of cystitis. Altered level of consciousness, improved off of antibiotics. Hypertension. Diabetes. Ultrasound of the kidney, thickened urinary bladder suggests cystitis. Chest x-ray, N[facility]D. PLAN: continue the patient on IV cefepime d# 2 Monitor CBC. Monitor BMP. Monitor cultures (blood and urine). Monitor chest x-ray. Subjective Constitutional: Denies: no symptoms, fever, chills, fatigue, anorexia, drenching sweats, other Allergies: Coded Allergies: No Known Allergies (Unverified , 01/21/18) Objective Vital Signs Last 24 Hour Vital Signs Date Time Temp Pulse Resp B/P (MAP) Pulse Ox O2 Delivery O2 Flow Rate FiO2 01/27/18 19:19 96.6 133 20 155/99 100 Nasal Cannula 96.6 01/27/18 16:00 97.0 100 20 147/94 97 97.0 01/27/18 16:00 120 01/27/18 12:00 98.1 115 18 157/75 99 98.1 01/27/18 12:00 121 01/27/18 09:08 112 148/79 01/27/18 08:00 97.8 112 18 148/79 99 97.8 01/27/18 08:00 110 01/27/18 04:00 97.8 72 18 115/61 100 97.8 01/27/18 03:55 100 01/27/18 00:00 94 01/27/18 00:00 97.3 80 18 120/67 100 97.3 Height (Feet): 5 Height (Inches): 9.00 Weight (Pounds): 117 HEENT: anicteric Respiratory/Chest: normal breath sounds Cardiovascular: regular rhythm Abdomen: soft, non tender Microbiology Date/Time Source Procedure Growth Status 01/26/18 01:20 Indwelling Cath Urine Culture - Preliminary Gram Negative Bacillus 1 Resulted Laboratory Tests Test 01/27/18 11:00 White Blood Count 7.8 K/UL (4.8-10.8) Red Blood Count 4.66 M/UL (4.20-5.40) Hemoglobin 12.9 G/DL (12.0-16.0) Hematocrit 40.0 % (37.0-47.0) Mean Corpuscular Volume 86 FL (80-99) Mean Corpuscular Hemoglobin 27.7 PG (27.0-31.0) Mean Corpuscular Hemoglobin Concent 32.2 G/DL (32.0-36.0) Red Cell Distribution Width 12.8 % (11.6-14.8) Platelet Count 243 K/UL (150-450) Mean Platelet Volume 8.8 FL (6.5-10.1) Neutrophils (%) (Auto) 71.8 % (45.0-75.0) Lymphocytes (%) (Auto) 17.2 % (20.0-45.0) L Monocytes (%) (Auto) 9.6 % (1.0-10.0) Eosinophils (%) (Auto) 0.0 % (0.0-3.0) Basophils (%) (Auto) 1.4 % (0.0-2.0) Current Medications Medications (Trade) Dose Ordered Sig/Dae Route PRN Reason Start Time Stop Time Status Last Admin Dose Admin Acetaminophen (Tylenol) 650 mg Q4H PRN ORAL Mild Pain/Temp > 100.5 01/27/18 16:58 02/20/18 16:57 Acetaminophen/ Codeine Phosphate (Tylenol #3) 1 tab Q8HR PRN ORAL MOD-SEVERE PAIN 01/27/18 16:58 01/28/18 16:57 Alendronate Sodium (Fosamax) 70 mg QWEEK ORAL 01/28/18 06:30 02/27/18 06:29 Amlodipine Besylate (Norvasc) 5 mg DAILY ORAL 01/28/18 09:00 02/20/18 09:59 Benztropine Mesylate (Cogentin) 1 mg BID ORAL 01/27/18 18:00 02/26/18 13:14 01/27/18 17:37 Cefepime HCl 2 gm/ Sodium Chloride 110 ml @ 220 mls/hr Q24H IV 01/28/18 09:00 02/02/18 08:59 Dextrose (Dextrose 50%) STAT PRN IV Hypoglycemia 01/27/18 16:58 02/26/18 16:57 Haloperidol Lactate (Haldol) 5 mg Q6H PRN IM Agitation 01/27/18 16:58 02/22/18 16:57 Heparin Sodium (Porcine) (Heparin 5000 units/ml) 5,000 units EVERY 12 HOURS SUBQ 01/27/18 21:00 02/20/18 20:59 Insulin Aspart (NovoLOG) BEFORE MEALS AND HS SUBQ 01/27/18 21:00 02/20/18 11:29 Latanoprost (Xalatan) 1 drop BEDTIME BOTH EYES 01/27/18 21:00 02/20/18 20:59 Levetiracetam (Keppra) 750 mg Q12HR ORAL 01/27/18 21:00 02/26/18 20:59 Lorazepam (Ativan 2mg/ml 1ml) 1 mg Q5M PRN IV SEIZURES 01/27/18 16:45 02/01/18 23:14 Multivitamins (Multivitamins) 1 tab DAILY ORAL 01/28/18 09:00 02/20/18 09:59 Olanzapine (ZyPREXA) 2.5 mg DAILY ORAL 01/28/18 09:00 02/25/18 08:59 Olanzapine (ZyPREXA) 5 mg BEDTIME ORAL 01/27/18 21:00 02/24/18 20:59 Polyethylene Glycol (Miralax) 17 gm DAILY PRN ORAL CONSTIPATION 01/27/18 16:59 02/26/18 16:58 Sodium Chloride 1,000 ml @ 75 mls/hr [id number] IV 01/27/18 16:58 02/26/18 16:57 Vitamin D (Vitamin D) 1,000 intlu DAILY ORAL 01/28/18 09:00 02/21/18 08:59 TYRELL MONTES DE OCA M.D. Jan 27, 2018 21:35
[2018-01-28 04:00] VITALS: BP 146/99
[2018-01-28] MEDS: NovoLOG Insulin Flexpen SUBQ SCH ×4 (06:15→21:00)
[2018-01-28 08:00] VITALS: BP 158/89
[2018-01-28] MEDS: Vitamin D 1000 IU Tab ORAL SCH (08:50)
[2018-01-28] MEDS: Benztropine 1mg tab ORAL SCH ×2 (08:50→18:27)
[2018-01-28] MEDS: Heparin 5000 units/ml inj SUBQ SCH ×2 (08:54→20:31)
[2018-01-28] MEDS ORDERED: Cefepime HCl 2 GM in NS 110 ML IV SCH (09:00)
[2018-01-28] MEDS: OLANZapine 2.5mg tab ORAL SCH (09:03)
[2018-01-28 12:00] VITALS: BP 155/77
--- NOTE | 2018-01-28 12:02 | General Progress Note ---
Assessment/Plan Status: stable Assessment/Plan 1. Encephalopathy. 2. Dementia - Alzheimer's type. 3. Renal failure - age indeterminate. 4. Hypercalcemia. 5. Abnormal blood sugar. 6. Hypokalemia. 7. Abnormal serum BNP. 8. Deconditioning. 9. Psychiatric disorder. 10 . Obstructive urophathy 11. Leukocytosis: likley reactive to Sz activity. 12. Recurrent Sz activity 13. Uro Sepsis: controlled with current IV abx Plan: Needs facility placement. CM on case Dr Navas, notified. He requested me to continue my care for now. Sz precaution optimized antibiotic based on reported Puss in the urine.". Pending ID input Urology is consulted Recurrent sz activity, will monitor persitent tachy cardia- normal Echo. Preserved vital sign Subjective ROS Limited/Unobtainable: No - Dementia, limited source of info Allergies: Coded Allergies: No Known Allergies (Unverified , 01/21/18) Objective Last 24 Hour Vital Signs Date Time Temp Pulse Resp B/P (MAP) Pulse Ox O2 Delivery O2 Flow Rate FiO2 01/28/18 08:50 136 158/89 01/28/18 08:00 97.3 136 20 158/89 100 97.3 01/28/18 04:00 97.3 125 21 146/99 100 Nasal Cannula 97.3 01/27/18 23:51 96.4 119 20 152/93 100 Nasal Cannula 96.4 01/27/18 19:19 96.6 133 20 155/99 100 Nasal Cannula 96.6 01/27/18 16:00 97.0 100 20 147/94 97 97.0 01/27/18 16:00 120 01/27/18 12:00 98.1 115 18 157/75 99 98.1 01/27/18 12:00 121 Intake and Output 01/27/18 01/28/18 19:00 07:00 Intake Total 825 ml Output Total 2000 ml 1750 ml Balance -1175 ml -1750 ml IV Total 825 ml Output Urine Total 2000 ml 1750 ml Height (Feet): 5 Height (Inches): 9.00 Weight (Pounds): 117 General Appearance: no apparent distress EENT: PERRL/EOMI Neck: supple Cardiovascular: tachycardia Respiratory/Chest: lungs clear Abdomen: soft Extremities: other - Deconditioning , atrophied muscles Neurologic: disoriented, other - AO x 1, demented. gross delusions Elvis Lofton MD Jan 28, 2018 12:02
--- NOTE | 2018-01-28 12:14 | Neurology Progress Note ---
Interim History Interim History ROS Limited/Unobtainable: No - Dementia, limited source of info Complaints: weakness Events: no sz noted less arm jerkings Objective Physical Exam Last Vital Signs Date Time Temp Pulse Resp B/P (MAP) Pulse Ox O2 Delivery O2 Flow Rate FiO2 01/28/18 08:50 136 158/89 01/28/18 08:00 97.3 20 100 97.3 01/28/18 04:00 Nasal Cannula 01/24/18 04:00 98.0 General: well developed, no acute distress, other - ill appearing Head: normocophalic, atraumatic Neck: other - rigid Neurologic Exam Mental Status: awake, other - follows command, slow, mood better, more coherent, still confused Speech: normal speech, no dysarthia Language: normal language, no aphasia Cranial Nerve II: fundus normal, visual fish, no papilledema Cranial Nerves III, IV, : PERRLA, EOMI, pupils Cranial Nerve V: normal facial sensations Cranial Nerve VII: no facial asymmetry, normal facial expressions Cranial Nerve VIII: normal hearing, no nystagmus Cranial Nerve IX: normal palate elevation, gag response Cranial Nerve X: no voice hoarseness Cranial Nerve XI: SCM symmetric, trapezii function normal Cranial Nerve XII: tongue midline, no tongue atrophy/fasciculations Motor System: other - tremor arms. titubation dyskinesia arms Sensory: normal pinprick Coordination: other Deep Tendon Reflexes: 1+ bicep (L), 1+ bicep (R), 1+ tricep (L), 1+ tricep (R) , 1+ brachioradialis (L), 1+ brachioradialis (R), 1+ knee (L), 1+ knee (R), 1+ ankle (L), 1+ ankle (R) Reflexes: mute plantar (L), mute plantar (R) Impression/Recommendations Problems: (1) Extrapyramidal movement disorder, drug-induced (2) recurrent generalised seizure activity (3) Alzheimer's dementia (4) UTI (urinary tract infection) Status: stable Recommendations #[id number] EEG no sz noted CT [place] keppra 500mg bid cogentin 2mg bid neuro---- stable JOSE MARIA RAYA Jan 28, 2018 12:14
--- NOTE | 2018-01-28 13:36 | Infectious Diseases Prog Note ---
Assessment/Plan Assessment/Plan ASSESSMENT: The patient is a 67-year-old female with, Leukocytosis. SP Pyuria/probable urinary tract infection. EColi Ultrasound showed evidence of cystitis. Altered level of consciousness, improved off of antibiotics. Hypertension. Diabetes. Ultrasound of the kidney, thickened urinary bladder suggests cystitis. Chest x-ray, N[facility]D. PLAN: continue the patient on IV cefepime d# 3 , change to Keflex d# 1/ 5 Monitor CBC. Monitor BMP. Monitor cultures (blood ) Monitor chest x-ray. Subjective Allergies: Coded Allergies: No Known Allergies (Unverified , 01/21/18) Subjective afebrile Objective Vital Signs Last 24 Hour Vital Signs Date Time Temp Pulse Resp B/P (MAP) Pulse Ox O2 Delivery O2 Flow Rate FiO2 01/28/18 12:00 97.9 114 20 155/77 99 97.9 01/28/18 08:50 136 158/89 01/28/18 08:00 97.3 136 20 158/89 100 97.3 01/28/18 04:00 97.3 125 21 146/99 100 Nasal Cannula 97.3 01/27/18 23:51 96.4 119 20 152/93 100 Nasal Cannula 96.4 01/27/18 19:19 96.6 133 20 155/99 100 Nasal Cannula 96.6 01/27/18 16:00 97.0 100 20 147/94 97 97.0 01/27/18 16:00 120 Height (Feet): 5 Height (Inches): 9.00 Weight (Pounds): 117 HEENT: anicteric Respiratory/Chest: normal breath sounds Cardiovascular: regularly irregular Abdomen: soft, non tender Microbiology Date/Time Source Procedure Growth Status 01/26/18 17:08 Blood Blood Culture - Preliminary NO GROWTH AFTER 24 HOURS Resulted 01/26/18 17:00 Blood Blood Culture - Preliminary NO GROWTH AFTER 24 HOURS Resulted 01/26/18 01:20 Indwelling Cath Urine Culture - Final Escherichia Coli Complete Current Medications Medications (Trade) Dose Ordered Sig/Dae Route PRN Reason Start Time Stop Time Status Last Admin Dose Admin Acetaminophen (Tylenol) 650 mg Q4H PRN ORAL Mild Pain/Temp > 100.5 01/27/18 16:58 02/20/18 16:57 Acetaminophen/ Codeine Phosphate (Tylenol #3) 1 tab Q8HR PRN ORAL MOD-SEVERE PAIN 01/27/18 16:58 01/28/18 16:57 Alendronate Sodium (Fosamax) 70 mg QWEEK ORAL 01/28/18 06:30 02/27/18 06:29 01/28/18 06:36 Amlodipine Besylate (Norvasc) 5 mg DAILY ORAL 01/28/18 09:00 02/20/18 09:59 01/28/18 08:50 Benztropine Mesylate (Cogentin) 1 mg BID ORAL 01/27/18 18:00 02/26/18 13:14 01/28/18 08:50 Cefepime HCl 2 gm/ Sodium Chloride 110 ml @ 220 mls/hr Q24H IV 01/28/18 09:00 02/02/18 08:59 01/28/18 08:49 Dextrose (Dextrose 50%) STAT PRN IV Hypoglycemia 01/27/18 16:58 02/26/18 16:57 Haloperidol Lactate (Haldol) 5 mg Q6H PRN IM Agitation 01/27/18 16:58 02/22/18 16:57 Heparin Sodium (Porcine) (Heparin 5000 units/ml) 5,000 units EVERY 12 HOURS SUBQ 01/27/18 21:00 02/20/18 20:59 01/28/18 08:54 Influenza Virus Vaccine Quadrival (Flu Vaccine Quadrivalent) 0.5 ml ONCE ONCE IM 01/28/18 12:45 01/28/18 12:46 UNV Insulin Aspart (NovoLOG) BEFORE MEALS AND HS SUBQ 01/27/18 21:00 02/20/18 11:29 01/28/18 12:39 Latanoprost (Xalatan) 1 drop BEDTIME BOTH EYES 01/27/18 21:00 02/20/18 20:59 01/27/18 21:00 Levetiracetam (Keppra) 750 mg Q12HR ORAL 01/27/18 21:00 02/26/18 20:59 01/28/18 09:03 Lorazepam (Ativan 2mg/ml 1ml) 1 mg Q5M PRN IV SEIZURES 01/27/18 16:45 02/01/18 23:14 Multivitamins (Multivitamins) 1 tab DAILY ORAL 01/28/18 09:00 02/20/18 09:59 01/28/18 08:50 Olanzapine (ZyPREXA) 2.5 mg DAILY ORAL 01/28/18 09:00 02/25/18 08:59 01/28/18 09:03 Olanzapine (ZyPREXA) 5 mg BEDTIME ORAL 01/27/18 21:00 02/24/18 20:59 01/27/18 22:58 Pneumococcal Polyvalent Vaccine (Pneumovax) 0.5 ml ONCE ONCE IM 01/28/18 12:45 01/28/18 12:46 UNV Polyethylene Glycol (Miralax) 17 gm DAILY PRN ORAL CONSTIPATION 01/27/18 16:59 02/26/18 16:58 Sodium Chloride 1,000 ml @ 75 mls/hr [id number] IV 01/27/18 16:58 02/26/18 16:57 01/28/18 06:09 Vitamin D (Vitamin D) 1,000 intlu DAILY ORAL 01/28/18 09:00 02/21/18 08:59 01/28/18 08:50 TYRELL MONTES DE OCA M.D. Jan 28, 2018 13:36
[2018-01-28 16:00] VITALS: BP 157/84
[2018-01-28] MEDS ORDERED: Pneumococcal Vaccine 25mcg/0.5ml IM ONE (16:00)
[2018-01-28] MEDS ORDERED: Flu Vaccine Quadrivalent 0.5ml IM ONE (16:00)
--- NOTE | 2018-01-28 16:07 | Cardiology Progress Note ---
Assessment/Plan Assessment/Plan 1. Sinus tachycardia, resolved, continue hydration, no e/o hyperthyroidism, echo reveals normal LV systolic function with normal intracardiac filling pressure. 2. Normal LV systolic function with LVEF of approximately 60% to 65%. 3. Mild pulmonary hypertension. 4. HTN, start Irbesartan, continue amlodipine. 5. DM, ASA and statins. Subjective Subjective Transferred to the med-surg unit. No cardiac events reported. Objective Last 24 Hour Vital Signs Date Time Temp Pulse Resp B/P (MAP) Pulse Ox O2 Delivery O2 Flow Rate FiO2 01/28/18 12:00 Nasal Cannula 2.0 01/28/18 12:00 97.9 114 20 155/77 99 97.9 01/28/18 08:50 136 158/89 01/28/18 08:00 Nasal Cannula 2.0 01/28/18 08:00 97.3 136 20 158/89 100 97.3 01/28/18 04:00 97.3 125 21 146/99 100 Nasal Cannula 97.3 01/27/18 23:51 96.4 119 20 152/93 100 Nasal Cannula 96.4 01/27/18 19:19 96.6 133 20 155/99 100 Nasal Cannula 96.6 Intake and Output 01/27/18 01/28/18 18:59 06:59 Intake Total 900 ml Output Total 2000 ml 1750 ml Balance -1100 ml -1750 ml IV Total 900 ml Output Urine Total 2000 ml 1750 ml 2D Echo: LVEF 65%, Grade I LVDD, Mild-Mod MR, RVSP 41 mmHg, Microbiology Date/Time Source Procedure Growth Status 01/26/18 17:08 Blood Blood Culture - Preliminary NO GROWTH AFTER 24 HOURS Resulted 01/26/18 17:00 Blood Blood Culture - Preliminary NO GROWTH AFTER 24 HOURS Resulted 01/26/18 01:20 Indwelling Cath Urine Culture - Final Escherichia Coli Complete Objective HEENT: Atraumatic and normocephalic. Anicteric. Pupils are equal, round, and reactive to light and accommodation. Extraocular muscles intact. NECK: JVP is less than 5 cm. No carotid bruits. Carotid upstrokes 2+ bilaterally. CARDIOVASCULAR: Normal S1 and S2. Regular rate and rhythm. No murmurs, gallops, or rubs. PMI is at the fourth intercostal space in the midclavicular line. LUNGS: Clear to auscultation bilaterally. ABDOMEN: Soft, nontender, and nondistended. No hepatosplenomegaly. Positive bowel sounds. EXTREMITIES: No evidence of edema, clubbing, or cyanosis. TAURUS VASQUEZ Jan 28, 2018 16:07
[2018-01-28] MEDS: Aspirin EC 81mg tab ORAL SCH (16:54)
[2018-01-28] MEDS: Cephalexin 250mg Cap ORAL SCH ×2 (18:27→21:09)
[2018-01-28 19:17] VITALS: BP 146/87
[2018-01-28] MEDS: Atorvastatin 20mg tab ORAL SCH (20:29)
[2018-01-28] MEDS: Latanoprost 0.005% Opth 2.5ml Soln BOTH EYES SCH (21:38)
--- NOTE | 2018-01-28 21:58 | General Progress Note ---
Assessment/Plan Problem List: (1) Altered mental status ICD Codes: R41.82 - Altered mental status, unspecified SNOMED: 806343023 (2) Confused Assessment & Plan: [place] I Dementia with behavior disturbance. PLAN: 1. We will start the patient on Seroquel 25 mg every four hours p.r.n. with anxiety and agitation. We will discontinue the Ativan. 2. We will continue to follow and readjust the medications. ICD Codes: R41.0 - Disorientation, unspecified SNOMED: 689355980 (3) Alzheimer's dementia Assessment & Plan: [place] I Dementia with behavior disturbance. PLAN: 1. We will start the patient on Seroquel 25 mg every four hours p.r.n. with anxiety and agitation. We will discontinue the Ativan. 2. We will continue to follow and readjust the medications. ICD Codes: G30.9 - Alzheimer's disease, unspecified; F02.80 - Dementia in other diseases classified elsewhere without behavioral disturbance SNOMED: 92423681 Qualifiers: (4) Tachycardia ICD Codes: R00.0 - Tachycardia, unspecified SNOMED: [id number] Assessment/Plan ASSESSMENT: [place] Dementia with behavior disturbance. seizure last night PLAN: 1. dc Seroquel 25 mg every four hours p.r.n. with anxiety and agitation. 2. cont haldol im prn 3. start zyprexa Subjective Allergies: Coded Allergies: No Known Allergies (Unverified , 01/21/18) Subjective the pt less agitated and calm now. confused and not engaged Objective Last 24 Hour Vital Signs Date Time Temp Pulse Resp B/P (MAP) Pulse Ox O2 Delivery O2 Flow Rate FiO2 01/28/18 19:17 96.8 121 20 146/87 100 Room Air 96.8 01/28/18 18:27 157/84 01/28/18 16:00 98.1 114 20 157/84 100 98.1 01/28/18 12:00 Nasal Cannula 2.0 01/28/18 12:00 97.9 114 20 155/77 99 97.9 01/28/18 08:50 136 158/89 01/28/18 08:00 Nasal Cannula 2.0 01/28/18 08:00 97.3 136 20 158/89 100 97.3 01/28/18 04:00 97.3 125 21 146/99 100 Nasal Cannula 97.3 01/27/18 23:51 96.4 119 20 152/93 100 Nasal Cannula 96.4 Intake and Output 01/27/18 01/28/18 19:00 07:00 Intake Total 825 ml Output Total 2000 ml 1750 ml Balance -1175 ml -1750 ml IV Total 825 ml Output Urine Total 2000 ml 1750 ml Height (Feet): 5 Height (Inches): 9.00 Weight (Pounds): 117 Ender Alvarez M.D. Jan 28, 2018 21:58
[2018-01-28 23:48] VITALS: BP 140/89
[2018-01-29 03:04] VITALS: BP 153/95
[2018-01-29] MEDS: NovoLOG Insulin Flexpen SUBQ SCH ×4 (06:02→21:00)
[2018-01-29 08:16] VITALS: BP 153/90
[2018-01-29] MEDS: Benztropine 1mg tab ORAL SCH ×2 (08:37→18:44)
[2018-01-29] MEDS: Aspirin EC 81mg tab ORAL SCH (08:37)
[2018-01-29] MEDS: Cephalexin 250mg Cap ORAL SCH ×4 (08:38→21:58)
[2018-01-29] MEDS: OLANZapine 2.5mg tab ORAL SCH (08:38)
[2018-01-29] MEDS: Vitamin D 1000 IU Tab ORAL SCH (08:38)
[2018-01-29] MEDS: Heparin 5000 units/ml inj SUBQ SCH ×2 (08:45→22:05)
[2018-01-29 11:41] VITALS: BP 142/96
[2018-01-29 16:00] VITALS: BP 148/90
[2018-01-29] MEDS ORDERED: Tubing IV Secondary IV ONE (17:19)
[2018-01-29] MEDS ORDERED: NS 275ml ONE (17:19)
[2018-01-29 20:00] VITALS: BP 144/77
--- NOTE | 2018-01-29 21:15 | Consultation ---
DATE OF CONSULTATION: 01/29/2018 INTERNAL MEDICINE CONSULTATION CONSULTING PHYSICIAN: Elmer Pang M.D. HISTORY OF PRESENT ILLNESS: This is an elderly female, who came to the hospital on 01/21/2018 with change in mental status. The patient was unable to provide the history. She was admitted to the hospital predominantly with diagnosis of dementia, Alzheimer's type as well as encephalopathy. The patient was also found to have mildly elevated creatinine of 1.4 and BNP of 620. The patient was admitted to the hospital and seen by multiple specialists. Per last documentation by infectious disease specialist, the patient has grown out E coli and is on antibiotics, presently on Keflex. The patient was seen also by Urology, Dr. Gutierres and oxybutynin was stopped as well as Haldol was discontinued. Per Neurology, the patient was improving. 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 At this point, the patient appears to be comfortable, denies any complaint. Last psychiatric notes from approximately 5 days ago and it is noted that Seroquel was started. PAST HISTORY: As described above, dementia, hypertension, and psychiatric history. MEDICATIONS: Hospital medications include normal saline, Tylenol, Fosamax, Norvasc, aspirin, Lipitor, Cogentin, Keflex, Haldol, subcutaneous heparin, insulin sliding scale, Avapro, Xalatan eye drops, Keppra, Ativan, multivitamins, Zyprexa, and vitamin D. PHYSICAL EXAMINATION: GENERAL: Reveals an elderly female. HEENT: Unremarkable. CHEST: Clear breath sounds bilaterally with normal heart tones. ABDOMEN: Soft. EXTREMITIES: There is no edema. IMPRESSION: 1. Seizures, on Keppra. 2. Urinary tract infection, on antibiotics. 3. Urinary retention secondary to medications, now discontinued. 4. Espinoza in place. 5. Dementia. DISCUSSION: We will discontinue Haldol. The patient is already off oxybutynin. We will discontinue IV fluids. We will initiate discharge planning to facility. We will follow as enroller requested by insurance. Elmer Pang M.D. DR: NEL JOB#: [id number] CC:
--- NOTE | 2018-01-29 21:24 | Infectious Diseases Prog Note ---
Assessment/Plan Assessment/Plan ASSESSMENT: The patient is a 67-year-old female with, Leukocytosis. SP Pyuria/probable urinary tract infection. EColi Ultrasound showed evidence of cystitis. Extrapyramidal movement disorder, drug-induced Sinus tachycardia, resolved, Altered level of consciousness, improved off of antibiotics. Hypertension. Diabetes. Ultrasound of the kidney, thickened urinary bladder suggests cystitis. Chest x-ray, NAPD. PLAN: continue the patient on Keflex d# 2/ 5 3 SP IV cefepime d# 3 Monitor CBC. Monitor BMP. Monitor cultures (blood ) Monitor chest x-ray. Subjective Allergies: Coded Allergies: No Known Allergies (Unverified , 01/21/18) Subjective afebrile Objective Vital Signs Last 24 Hour Vital Signs Date Time Temp Pulse Resp B/P (MAP) Pulse Ox O2 Delivery O2 Flow Rate FiO2 01/29/18 20:00 97.9 100 19 144/77 100 97.9 01/29/18 18:52 114 01/29/18 16:00 99.7 126 20 148/90 99 99.7 01/29/18 16:00 Nasal Cannula 2.0 01/29/18 12:52 129 01/29/18 11:41 99.7 136 20 142/96 99 Nasal Cannula 2.0 99.7 01/29/18 08:38 139 153/90 01/29/18 08:37 153/90 01/29/18 08:16 98.1 139 20 153/90 100 Nasal Cannula 98.1 01/29/18 03:04 96.3 122 20 153/95 100 Nasal Cannula 96.3 01/28/18 23:48 98.2 112 20 140/89 100 Nasal Cannula 98.2 Height (Feet): 5 Height (Inches): 9.00 Weight (Pounds): 117 HEENT: atraumatic Respiratory/Chest: no accessory muscle use Cardiovascular: regular rhythm Abdomen: non distended Current Medications Medications (Trade) Dose Ordered Sig/Dae Route PRN Reason Start Time Stop Time Status Last Admin Dose Admin Acetaminophen (Tylenol) 650 mg Q4H PRN ORAL Mild Pain/Temp > 100.5 01/27/18 16:58 02/20/18 16:57 Alendronate Sodium (Fosamax) 70 mg QWEEK ORAL 01/28/18 06:30 02/27/18 06:29 01/28/18 06:36 Amlodipine Besylate (Norvasc) 5 mg DAILY ORAL 01/28/18 09:00 02/20/18 09:59 01/29/18 08:38 Aspirin (Ecotrin) 81 mg DAILY ORAL 01/28/18 16:15 02/27/18 16:14 01/29/18 08:37 Atorvastatin Calcium (Lipitor) 20 mg BEDTIME ORAL 01/28/18 21:00 02/27/18 20:59 01/28/18 20:29 Benztropine Mesylate (Cogentin) 1 mg BID ORAL 01/27/18 18:00 02/26/18 13:14 01/29/18 18:44 Cephalexin (Keflex) 250 mg FOUR TIMES A DAY ORAL 01/28/18 14:30 02/04/18 14:29 01/29/18 18:47 Dextrose (Dextrose 50%) STAT PRN IV Hypoglycemia 01/27/18 16:58 02/26/18 16:57 Heparin Sodium (Porcine) (Heparin 5000 units/ml) 5,000 units EVERY 12 HOURS SUBQ 01/27/18 21:00 02/20/18 20:59 01/29/18 08:45 Insulin Aspart (NovoLOG) BEFORE MEALS AND HS SUBQ 01/27/18 21:00 02/20/18 11:29 01/28/18 16:56 Irbesartan (Avapro) 75 mg DAILY ORAL 01/28/18 16:15 02/27/18 16:14 01/29/18 08:37 Latanoprost (Xalatan) 1 drop BEDTIME BOTH EYES 01/27/18 21:00 02/20/18 20:59 01/28/18 21:38 Levetiracetam (Keppra) 750 mg Q12HR ORAL 01/27/18 21:00 02/26/18 20:59 01/29/18 08:38 Lorazepam (Ativan 2mg/ml 1ml) 1 mg Q5M PRN IV SEIZURES 01/27/18 16:45 02/01/18 23:14 Multivitamins (Multivitamins) 1 tab DAILY ORAL 01/28/18 09:00 02/20/18 09:59 01/29/18 08:38 Olanzapine (ZyPREXA) 2.5 mg DAILY ORAL 01/28/18 09:00 02/25/18 08:59 01/29/18 08:38 Olanzapine (ZyPREXA) 5 mg BEDTIME ORAL 01/27/18 21:00 02/24/18 20:59 01/28/18 20:29 Polyethylene Glycol (Miralax) 17 gm DAILY PRN ORAL CONSTIPATION 01/27/18 16:59 02/26/18 16:58 Vitamin D (Vitamin D) 1,000 intlu DAILY ORAL 01/28/18 09:00 02/21/18 08:59 01/29/18 08:38 TYRELL MONTES DE OCA M.D. Jan 29, 2018 21:24
[2018-01-29] MEDS: Latanoprost 0.005% Opth 2.5ml Soln BOTH EYES SCH (21:59)
[2018-01-29] MEDS: Atorvastatin 20mg tab ORAL SCH (21:59)
--- NOTE | 2018-01-29 22:02 | Cardiology Progress Note ---
Assessment/Plan Assessment/Plan 1. Sinus tachycardia, resolved, continue hydration, no e/o hyperthyroidism, echo reveals normal LV systolic function with normal intracardiac filling pressure. 2. Normal LV systolic function with LVEF of approximately 60% to 65%. 3. Mild pulmonary hypertension. 4. HTN, will increase dose of Irbesartan, continue amlodipine. 5. DM, ASA and statins. Subjective Subjective No cardiac events reported. Objective Last 24 Hour Vital Signs Date Time Temp Pulse Resp B/P (MAP) Pulse Ox O2 Delivery O2 Flow Rate FiO2 01/29/18 20:00 97.9 100 19 144/77 100 97.9 01/29/18 18:52 114 01/29/18 16:00 99.7 126 20 148/90 99 99.7 01/29/18 16:00 Nasal Cannula 2.0 01/29/18 12:52 129 01/29/18 11:41 99.7 136 20 142/96 99 Nasal Cannula 2.0 99.7 01/29/18 08:38 139 153/90 01/29/18 08:37 153/90 01/29/18 08:16 98.1 139 20 153/90 100 Nasal Cannula 98.1 01/29/18 03:04 96.3 122 20 153/95 100 Nasal Cannula 96.3 01/28/18 23:48 98.2 112 20 140/89 100 Nasal Cannula 98.2 Intake and Output 01/28/18 01/29/18 19:00 07:00 Intake Total 840 ml 600 ml Output Total 1000 ml 2000 ml Balance -160 ml -1400 ml Intake Oral 240 ml IV Total 600 ml 600 ml Output Urine Total 1000 ml 2000 ml # Bowel Movements 1 2D Echo: LVEF 65%, Grade I LVDD, Mild-Mod MR, RVSP 41 mmHg, Objective HEENT: Atraumatic and normocephalic. Anicteric. Pupils are equal, round, and reactive to light and accommodation. Extraocular muscles intact. NECK: JVP is less than 5 cm. No carotid bruits. Carotid upstrokes 2+ bilaterally. CARDIOVASCULAR: Normal S1 and S2. Regular rate and rhythm. No murmurs, gallops, or rubs. PMI is at the fourth intercostal space in the midclavicular line. LUNGS: Clear to auscultation bilaterally. ABDOMEN: Soft, nontender, and nondistended. No hepatosplenomegaly. Positive bowel sounds. EXTREMITIES: No evidence of edema, clubbing, or cyanosis. TAURUS VASQUEZ Jan 29, 2018 22:02
--- NOTE | 2018-01-29 23:54 | General Progress Note ---
Assessment/Plan Problem List: (1) Altered mental status ICD Codes: R41.82 - Altered mental status, unspecified SNOMED: 071847589 (2) Confused Assessment & Plan: [place] I Dementia with behavior disturbance. PLAN: 1. We will start the patient on Seroquel 25 mg every four hours p.r.n. with anxiety and agitation. We will discontinue the Ativan. 2. We will continue to follow and readjust the medications. ICD Codes: R41.0 - Disorientation, unspecified SNOMED: 222885739 (3) Alzheimer's dementia Assessment & Plan: [place] I Dementia with behavior disturbance. PLAN: 1. We will start the patient on Seroquel 25 mg every four hours p.r.n. with anxiety and agitation. We will discontinue the Ativan. 2. We will continue to follow and readjust the medications. ICD Codes: G30.9 - Alzheimer's disease, unspecified; F02.80 - Dementia in other diseases classified elsewhere without behavioral disturbance SNOMED: 48742714 Qualifiers: (4) Tachycardia ICD Codes: R00.0 - Tachycardia, unspecified SNOMED: 5117589 Assessment/Plan ASSESSMENT: [place] I Dementia with behavior disturbance. seizure last night PLAN: 1. dc Seroquel 25 mg every four hours p.r.n. with anxiety and agitation. 2. cont haldol im prn 3. start zyprexa Subjective Neurologic/Psychiatric: Reports: anxiety, depressed, emotional problems Allergies: Coded Allergies: No Known Allergies (Unverified , 01/21/18) Subjective the pt less agitated and calm now. confused and not engaged Objective Last 24 Hour Vital Signs Date Time Temp Pulse Resp B/P (MAP) Pulse Ox O2 Delivery O2 Flow Rate FiO2 01/29/18 20:00 97.9 100 19 144/77 100 97.9 01/29/18 18:52 114 01/29/18 16:00 99.7 126 20 148/90 99 99.7 01/29/18 16:00 Nasal Cannula 2.0 01/29/18 12:52 129 01/29/18 11:41 99.7 136 20 142/96 99 Nasal Cannula 2.0 99.7 01/29/18 08:38 139 153/90 01/29/18 08:37 153/90 01/29/18 08:16 98.1 139 20 153/90 100 Nasal Cannula 98.1 01/29/18 03:04 96.3 122 20 153/95 100 Nasal Cannula 96.3 Intake and Output 01/28/18 01/29/18 19:00 07:00 Intake Total 840 ml 600 ml Output Total 1000 ml 2000 ml Balance -160 ml -1400 ml Intake Oral 240 ml IV Total 600 ml 600 ml Output Urine Total 1000 ml 2000 ml # Bowel Movements 1 Height (Feet): 5 Height (Inches): 9.00 Weight (Pounds): 117 General Appearance: no apparent distress, lethargic, confused Ender Alvarez M.D. Jan 29, 2018 23:54
[2018-01-30] VITALS: BP 146/92
[2018-01-30 04:00] VITALS: BP 152/107
[2018-01-30] MEDS: NovoLOG Insulin Flexpen SUBQ SCH ×4 (06:30→21:03)
[2018-01-30 08:00] VITALS: BP 151/97
[2018-01-30] MEDS: OLANZapine 2.5mg tab ORAL SCH (09:17)
[2018-01-30] MEDS: Benztropine 1mg tab ORAL SCH ×2 (09:17→17:17)
[2018-01-30] MEDS: Vitamin D 1000 IU Tab ORAL SCH (09:17)
[2018-01-30] MEDS: Cephalexin 250mg Cap ORAL SCH ×4 (09:17→20:44)
[2018-01-30] MEDS: Aspirin EC 81mg tab ORAL SCH (09:18)
[2018-01-30] MEDS: Heparin 5000 units/ml inj SUBQ SCH ×2 (09:19→20:46)
--- NOTE | 2018-01-30 10:05 | Pulmonology Progress Note ---
Assessment/Plan Assessment/Plan IMPRESSION: 1. Seizures, on Keppra. 2. Urinary tract infection, on antibiotics. 3. Urinary retention secondary to medications, oxybutinin nowdiscontinued. 4. Espinoza in place. 5. Dementia. DISCUSSION: I had discontinued Haldol, however I note that psychiatry is recommending to continue. The patient is already off oxybutynin. I have discontinued IV fluids. I will initiate discharge planning to facility. 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 Subjective Interval Events: Continues to have behavioral issues. Pulled out IV etc Constitutional: Reports: no symptoms HEENT: Repors: no symptoms Respiratory: Reports: no symptoms Cardiovascular: Reports: no symptoms Gastrointestinal/Abdominal: Reports: no symptoms Genitourinary: Reports: no symptoms Allergies: Coded Allergies: No Known Allergies (Unverified , 01/21/18) Objective Last 24 Hour Vital Signs Date Time Temp Pulse Resp B/P (MAP) Pulse Ox O2 Delivery O2 Flow Rate FiO2 01/30/18 09:17 151/97 01/30/18 09:17 122 151/97 01/30/18 08:00 99.7 122 20 151/97 100 Room Air 99.7 01/30/18 04:00 97.9 130 19 152/107 97.9 01/30/18 00:00 97.0 133 18 146/92 100 97.0 01/29/18 20:00 97.9 100 19 144/77 100 97.9 01/29/18 18:52 114 01/29/18 16:00 99.7 126 20 148/90 99 99.7 01/29/18 16:00 Nasal Cannula 2.0 01/29/18 12:52 129 01/29/18 11:41 99.7 136 20 142/96 99 Nasal Cannula 2.0 99.7 Intake and Output 01/29/18 01/30/18 19:00 07:00 Intake Total 240 ml Output Total 2400 ml Balance -2160 ml Intake Oral 240 ml Output Urine Total 2400 ml # Bowel Movements 1 2 General Appearance: no acute distress HEENT: normocephalic Respiratory/Chest: chest wall non-tender Cardiovascular: normal peripheral pulses Abdomen: normal bowel sounds, soft, non tender Extremities: no cyanosis Current Medications Medications (Trade) Dose Ordered Sig/Dae Route PRN Reason Start Time Stop Time Status Last Admin Dose Admin Acetaminophen (Tylenol) 650 mg Q4H PRN ORAL Mild Pain/Temp > 100.5 01/27/18 16:58 02/20/18 16:57 Alendronate Sodium (Fosamax) 70 mg QWEEK ORAL 01/28/18 06:30 02/27/18 06:29 01/28/18 06:36 Amlodipine Besylate (Norvasc) 5 mg DAILY ORAL 01/28/18 09:00 02/20/18 09:59 01/30/18 09:17 Aspirin (Ecotrin) 81 mg DAILY ORAL 01/28/18 16:15 02/27/18 16:14 01/30/18 09:18 Atorvastatin Calcium (Lipitor) 20 mg BEDTIME ORAL 01/28/18 21:00 02/27/18 20:59 01/29/18 21:59 Benztropine Mesylate (Cogentin) 1 mg BID ORAL 01/27/18 18:00 02/26/18 13:14 01/30/18 09:17 Cephalexin (Keflex) 250 mg FOUR TIMES A DAY ORAL 01/28/18 14:30 02/04/18 14:29 01/30/18 09:17 Dextrose (Dextrose 50%) STAT PRN IV Hypoglycemia 01/27/18 16:58 02/26/18 16:57 Heparin Sodium (Porcine) (Heparin 5000 units/ml) 5,000 units EVERY 12 HOURS SUBQ 01/27/18 21:00 02/20/18 20:59 01/30/18 09:19 Insulin Aspart (NovoLOG) BEFORE MEALS AND HS SUBQ 01/27/18 21:00 02/20/18 11:29 01/28/18 16:56 Irbesartan (Avapro) 75 mg DAILY ORAL 01/28/18 16:15 02/27/18 16:14 01/30/18 09:17 Latanoprost (Xalatan) 1 drop BEDTIME BOTH EYES 01/27/18 21:00 02/20/18 20:59 01/29/18 21:59 Levetiracetam (Keppra) 750 mg Q12HR ORAL 01/27/18 21:00 02/26/18 20:59 01/30/18 09:18 Lorazepam (Ativan 2mg/ml 1ml) 1 mg Q5M PRN IV SEIZURES 3/8/18 16:45 02/01/18 23:14 Multivitamins (Multivitamins) 1 tab DAILY ORAL 01/28/18 09:00 02/20/18 09:59 01/30/18 09:17 Olanzapine (ZyPREXA) 2.5 mg DAILY ORAL 01/28/18 09:00 02/25/18 08:59 01/30/18 09:17 Olanzapine (ZyPREXA) 5 mg BEDTIME ORAL 01/27/18 21:00 02/24/18 20:59 01/29/18 21:59 Polyethylene Glycol (Miralax) 17 gm DAILY PRN ORAL CONSTIPATION 01/27/18 16:59 02/26/18 16:58 Vitamin D (Vitamin D) 1,000 intlu DAILY ORAL 01/28/18 09:00 02/21/18 08:59 01/30/18 09:17 Elmer Pang MD Jan 30, 2018 10:04
[2018-01-30] MEDS ORDERED: BENZTROPINE MESY1 MG ORAL (10:07)
[2018-01-30] MEDS ORDERED: OLANZAPINE5 MG ORAL (10:07)
[2018-01-30] MEDS ORDERED: KEPPRA500 MG ORAL (10:07)
[2018-01-30 12:15] VITALS: BP 143/94
[2018-01-30 16:00] VITALS: BP 142/75
[2018-01-30] MEDS ORDERED: DiphenhydrAMINE 50mg/ml Inj IM ONE (19:30)
[2018-01-30] MEDS ORDERED: Haloperidol 5mg/ml Inj IM STA (19:37)
[2018-01-30 20:00] VITALS: BP 132/72
[2018-01-30] MEDS ORDERED: Haloperidol Decanoate 50mg Inj IM ONE (20:00)
[2018-01-30] MEDS: Latanoprost 0.005% Opth 2.5ml Soln BOTH EYES SCH (20:44)
[2018-01-30] MEDS: Atorvastatin 20mg tab ORAL SCH (20:45)
[2018-01-30] MEDS: LORazepam 1mg tab ORAL PRN (22:32)
--- NOTE | 2018-01-30 23:40 | Cardiology Progress Note ---
Assessment/Plan Assessment/Plan 1. Sinus tachycardia, recurrent, continue hydration, no e/o hyperthyroidism, echo reveals normal LV systolic function with normal intracardiac filling pressure. 2. Normal LV systolic function with LVEF of approximately 60% to 65%. 3. Mild pulmonary hypertension. 4. HTN, continue amlodipine and Irbesartan. 5. DM, continue ASA and statins. Subjective Subjective The nurses reported elevated HR. 12 lead ECG ordered. Objective Last 24 Hour Vital Signs Date Time Temp Pulse Resp B/P (MAP) Pulse Ox O2 Delivery O2 Flow Rate FiO2 01/30/18 20:00 93.7 139 93.7 01/30/18 20:00 97.3 130 18 132/72 99 Nasal Cannula 2.0 97.3 01/30/18 17:00 118 01/30/18 16:00 96.9 140 20 142/75 100 Nasal Cannula 96.9 01/30/18 12:15 98.6 120 18 143/94 100 Room Air 98.6 01/30/18 09:17 151/97 01/30/18 09:17 122 151/97 01/30/18 08:00 99.7 122 20 151/97 100 Room Air 99.7 01/30/18 04:00 97.9 130 19 152/107 97.9 01/30/18 00:00 97.0 133 18 146/92 100 97.0 Intake and Output 01/29/18 01/30/18 19:00 07:00 Intake Total 240 ml Output Total 2400 ml Balance -2160 ml Intake Oral 240 ml Output Urine Total 2400 ml # Bowel Movements 1 2 2D Echo: LVEF 65%, Grade I LVDD, Mild-Mod MR, RVSP 41 mmHg, Objective HEENT: Atraumatic and normocephalic. Anicteric. Pupils are equal, round, and reactive to light and accommodation. Extraocular muscles intact. NECK: JVP is less than 5 cm. No carotid bruits. Carotid upstrokes 2+ bilaterally. CARDIOVASCULAR: Normal S1 and S2. Regular rate and rhythm. Tachycardia. No murmurs, gallops, or rubs. PMI is at the fourth intercostal space in the midclavicular line. LUNGS: Clear to auscultation bilaterally. ABDOMEN: Soft, nontender, and nondistended. No hepatosplenomegaly. Positive bowel sounds. EXTREMITIES: No evidence of edema, clubbing, or cyanosis. TAURUS VASQUEZ Jan 30, 2018 23:40
[2018-01-31] VITALS: BP 65/49
[2018-01-31] MEDS: NovoLOG Insulin Flexpen SUBQ SCH ×2 (06:12→11:53)
[2018-01-31 08:00] VITALS: BP 142/69
[2018-01-31] MEDS: LORazepam 1mg tab ORAL PRN (09:05)
--- NOTE | 2018-01-31 09:07 | Pulmonology Progress Note ---
Assessment/Plan Assessment/Plan IMPRESSION: 1. Seizures, on Keppra. 2. Urinary tract infection, on antibiotics. 3. Urinary retention secondary to medications, oxybutinin nowdiscontinued. 4. Espinoza in place. 5. Dementia. DISCUSSION: I had discontinued Haldol, however I note that psychiatry is recommending to continue. The patient is already off oxybutynin. I have discontinued IV fluids. I will initiate discharge planning to facility. 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 May need in and out cath for urinary retention Suggest to DC Haldol Subjective Interval Events: Has urinary retention; may need I/O Constitutional: Reports: no symptoms HEENT: Repors: no symptoms Cardiovascular: Reports: no symptoms Gastrointestinal/Abdominal: Reports: no symptoms Genitourinary: Reports: other Neurologic: Reports: no symptoms Psychiatric: Reports: no symptoms Allergies: Coded Allergies: No Known Allergies (Unverified , 01/21/18) Objective Last 24 Hour Vital Signs Date Time Temp Pulse Resp B/P (MAP) Pulse Ox O2 Delivery O2 Flow Rate FiO2 01/31/18 04:00 97.6 107 18 100 Nasal Cannula 2.0 97.6 01/31/18 00:00 97.9 83 19 65/49 83 Nasal Cannula 2.0 97.9 01/30/18 20:00 93.7 139 93.7 01/30/18 20:00 97.3 130 18 132/72 99 Nasal Cannula 2.0 97.3 01/30/18 17:00 118 01/30/18 16:00 96.9 140 20 142/75 100 Nasal Cannula 96.9 01/30/18 12:15 98.6 120 18 143/94 100 Room Air 98.6 01/30/18 09:17 151/97 01/30/18 09:17 122 151/97 Intake and Output 01/30/18 01/31/18 19:00 07:00 Intake Total 840 ml Output Total 0 ml 600 ml Balance 840 ml -600 ml Intake Oral 840 ml Output Urine Total 600 ml Post Void Residual 0 ml 0 ml Bladder Scan Volume Amount <10 ml <10 ml # Voids 4 General Appearance: no acute distress HEENT: normocephalic Respiratory/Chest: chest wall non-tender, lungs clear Cardiovascular: normal peripheral pulses, normal rate Abdomen: normal bowel sounds, no organomegaly Current Medications Medications (Trade) Dose Ordered Sig/Dae Route PRN Reason Start Time Stop Time Status Last Admin Dose Admin Acetaminophen (Tylenol) 650 mg Q4H PRN ORAL Mild Pain/Temp > 100.5 01/27/18 16:58 02/20/18 16:57 Alendronate Sodium (Fosamax) 70 mg QWEEK ORAL 01/28/18 06:30 02/27/18 06:29 01/28/18 06:36 Amlodipine Besylate (Norvasc) 5 mg DAILY ORAL 01/28/18 09:00 02/20/18 09:59 01/30/18 09:17 Aspirin (Ecotrin) 81 mg DAILY ORAL 01/28/18 16:15 02/27/18 16:14 01/30/18 09:18 Atorvastatin Calcium (Lipitor) 20 mg BEDTIME ORAL 01/28/18 21:00 02/27/18 20:59 01/30/18 20:45 Benztropine Mesylate (Cogentin) 1 mg BID ORAL 01/27/18 18:00 02/26/18 13:14 01/30/18 17:17 Cephalexin (Keflex) 250 mg FOUR TIMES A DAY ORAL 01/28/18 14:30 02/04/18 14:29 01/30/18 20:44 Dextrose (Dextrose 50%) STAT PRN IV Hypoglycemia 01/27/18 16:58 02/26/18 16:57 Heparin Sodium (Porcine) (Heparin 5000 units/ml) 5,000 units EVERY 12 HOURS SUBQ 01/27/18 21:00 02/20/18 20:59 01/30/18 20:46 Insulin Aspart (NovoLOG) BEFORE MEALS AND HS SUBQ 01/27/18 21:00 02/20/18 11:29 01/30/18 21:03 Irbesartan (Avapro) 75 mg DAILY ORAL 01/28/18 16:15 02/27/18 16:14 01/30/18 09:17 Latanoprost (Xalatan) 1 drop BEDTIME BOTH EYES 01/27/18 21:00 02/20/18 20:59 01/30/18 20:44 Levetiracetam (Keppra) 750 mg Q12HR ORAL 01/27/18 21:00 02/26/18 20:59 01/30/18 20:44 Lorazepam (Ativan 2mg/ml 1ml) 1 mg Q5M PRN IV SEIZURES 01/27/18 16:45 02/01/18 23:14 Lorazepam (Ativan) 1 mg Q4H PRN ORAL Agitation 01/30/18 19:30 02/06/18 19:29 01/31/18 09:05 Multivitamins (Multivitamins) 1 tab DAILY ORAL 01/28/18 09:00 02/20/18 09:59 01/30/18 09:17 Olanzapine (ZyPREXA) 2.5 mg DAILY ORAL 01/28/18 09:00 02/25/18 08:59 01/30/18 09:17 Olanzapine (ZyPREXA) 5 mg BEDTIME ORAL 01/27/18 21:00 02/24/18 20:59 01/30/18 20:45 Polyethylene Glycol (Miralax) 17 gm DAILY PRN ORAL CONSTIPATION 01/27/18 16:59 02/26/18 16:58 Vitamin D (Vitamin D) 1,000 intlu DAILY ORAL 01/28/18 09:00 02/21/18 08:59 01/30/18 09:17 Elmer Pang MD Jan 31, 2018 09:07
[2018-01-31] MEDS: OLANZapine 2.5mg tab ORAL SCH (10:27)
[2018-01-31] MEDS: Cephalexin 250mg Cap ORAL SCH ×2 (10:27→13:31)
[2018-01-31] MEDS: Aspirin EC 81mg tab ORAL SCH (10:27)
[2018-01-31] MEDS: Benztropine 1mg tab ORAL SCH (10:28)
[2018-01-31] MEDS: Vitamin D 1000 IU Tab ORAL SCH (10:28)
[2018-01-31] MEDS: Heparin 5000 units/ml inj SUBQ SCH (10:29)
[2018-01-31 12:08] VITALS: BP 118/84
--- NOTE | 2018-01-31 14:06 | Infectious Diseases Prog Note ---
Assessment/Plan Assessment/Plan ASSESSMENT: The patient is a 67-year-old female with, Leukocytosis. SP Pyuria/probable urinary tract infection. EColi (barron S) Ultrasound showed evidence of cystitis. Extrapyramidal movement disorder, drug-induced Sinus tachycardia, resolved, Altered level of consciousness, improved off of antibiotics. Hypertension. Diabetes. Ultrasound of the kidney, thickened urinary bladder suggests cystitis. Chest x-ray, NAPD. PLAN: continue the patient on Keflex d# 4/ 5 3 SP IV cefepime d# 3 Monitor CBC. Monitor BMP. Monitor cultures (blood ) Monitor chest x-ray. Subjective Allergies: Coded Allergies: No Known Allergies (Unverified , 01/21/18) Subjective afebrile leukocytosis resolved Objective Vital Signs Last 24 Hour Vital Signs Date Time Temp Pulse Resp B/P (MAP) Pulse Ox O2 Delivery O2 Flow Rate FiO2 01/31/18 12:08 98.1 100 20 118/84 97 Nasal Cannula 2.0 98.1 01/31/18 10:27 142/69 01/31/18 10:27 82 142/69 01/31/18 08:00 97.2 82 21 142/69 Nasal Cannula 2.0 97.2 01/31/18 04:00 97.6 107 18 100 Nasal Cannula 2.0 97.6 01/31/18 00:00 97.9 83 19 65/49 83 Nasal Cannula 2.0 97.9 01/30/18 20:00 93.7 139 93.7 01/30/18 20:00 97.3 130 18 132/72 99 Nasal Cannula 2.0 97.3 01/30/18 17:00 118 01/30/18 16:00 96.9 140 20 142/75 100 Nasal Cannula 96.9 Height (Feet): 5 Height (Inches): 9.00 Weight (Pounds): 117 Objective HEENT: atraumatic Respiratory/Chest: no accessory muscle use Cardiovascular: regular rhythm Abdomen: non distended Current Medications Medications (Trade) Dose Ordered Sig/Dae Route PRN Reason Start Time Stop Time Status Last Admin Dose Admin Acetaminophen (Tylenol) 650 mg Q4H PRN ORAL Mild Pain/Temp > 100.5 01/27/18 16:58 02/20/18 16:57 Alendronate Sodium (Fosamax) 70 mg QWEEK ORAL 01/28/18 06:30 02/27/18 06:29 01/28/18 06:36 Amlodipine Besylate (Norvasc) 5 mg DAILY ORAL 01/28/18 09:00 02/20/18 09:59 01/31/18 10:27 Aspirin (Ecotrin) 81 mg DAILY ORAL 01/28/18 16:15 02/27/18 16:14 01/31/18 10:27 Atorvastatin Calcium (Lipitor) 20 mg BEDTIME ORAL 01/28/18 21:00 02/27/18 20:59 01/30/18 20:45 Benztropine Mesylate (Cogentin) 1 mg BID ORAL 01/27/18 18:00 02/26/18 13:14 01/31/18 10:28 Cephalexin (Keflex) 250 mg FOUR TIMES A DAY ORAL 01/28/18 14:30 02/04/18 14:29 01/31/18 13:31 Dextrose (Dextrose 50%) STAT PRN IV Hypoglycemia 01/27/18 16:58 02/26/18 16:57 Heparin Sodium (Porcine) (Heparin 5000 units/ml) 5,000 units EVERY 12 HOURS SUBQ 01/27/18 21:00 02/20/18 20:59 01/31/18 10:29 Insulin Aspart (NovoLOG) BEFORE MEALS AND HS SUBQ 01/27/18 21:00 02/20/18 11:29 01/31/18 11:53 Irbesartan (Avapro) 75 mg DAILY ORAL 01/28/18 16:15 02/27/18 16:14 01/31/18 10:27 Latanoprost (Xalatan) 1 drop BEDTIME BOTH EYES 01/27/18 21:00 02/20/18 20:59 01/30/18 20:44 Levetiracetam (Keppra) 750 mg Q12HR ORAL 01/27/18 21:00 02/26/18 20:59 01/31/18 10:28 Lorazepam (Ativan 2mg/ml 1ml) 1 mg Q5M PRN IV SEIZURES 01/27/18 16:45 02/01/18 23:14 Lorazepam (Ativan) 1 mg Q4H PRN ORAL Agitation 01/30/18 19:30 02/06/18 19:29 01/31/18 09:05 Multivitamins (Multivitamins) 1 tab DAILY ORAL 01/28/18 09:00 02/20/18 09:59 01/31/18 10:27 Olanzapine (ZyPREXA) 2.5 mg DAILY ORAL 01/28/18 09:00 02/25/18 08:59 01/31/18 10:27 Olanzapine (ZyPREXA) 5 mg BEDTIME ORAL 01/27/18 21:00 02/24/18 20:59 01/30/18 20:45 Polyethylene Glycol (Miralax) 17 gm DAILY PRN ORAL CONSTIPATION 01/27/18 16:59 02/26/18 16:58 Vitamin D (Vitamin D) 1,000 intlu DAILY ORAL 01/28/18 09:00 02/21/18 08:59 01/31/18 10:28 Farrah Solano M.D. Jan 31, 2018 14:06
--- NOTE | 2018-01-31 18:17 | Cardiology Progress Note ---
Assessment/Plan Assessment/Plan 1. Sinus tachycardia, better, continue hydration, no e/o hyperthyroidism, echo reveals normal LV systolic function with normal intracardiac filling pressure. 2. Normal LV systolic function with LVEF of approximately 60% to 65%. 3. Mild pulmonary hypertension. 4. HTN, continue amlodipine and Irbesartan. 5. DM, continue ASA and statins. Subjective Subjective No cardiac events. Tachycardia resolved. Objective Last 24 Hour Vital Signs Date Time Temp Pulse Resp B/P (MAP) Pulse Ox O2 Delivery O2 Flow Rate FiO2 01/31/18 12:08 98.1 100 20 118/84 97 Nasal Cannula 2.0 98.1 01/31/18 10:27 142/69 01/31/18 10:27 82 142/69 01/31/18 08:00 97.2 82 21 142/69 Nasal Cannula 2.0 97.2 01/31/18 04:00 97.6 107 18 100 Nasal Cannula 2.0 97.6 01/31/18 00:00 97.9 83 19 65/49 83 Nasal Cannula 2.0 97.9 01/30/18 20:00 93.7 139 93.7 01/30/18 20:00 97.3 130 18 132/72 99 Nasal Cannula 2.0 97.3 Intake and Output 01/30/18 01/31/18 19:00 07:00 Intake Total 840 ml Output Total 0 ml 600 ml Balance 840 ml -600 ml Intake Oral 840 ml Output Urine Total 600 ml Post Void Residual 0 ml 0 ml Bladder Scan Volume Amount <10 ml <10 ml # Voids 4 2D Echo: LVEF 65%, Grade I LVDD, Mild-Mod MR, RVSP 41 mmHg, Objective HEENT: Atraumatic and normocephalic. Anicteric. Pupils are equal, round, and reactive to light and accommodation. Extraocular muscles intact. NECK: JVP is less than 5 cm. No carotid bruits. Carotid upstrokes 2+ bilaterally. CARDIOVASCULAR: Normal S1 and S2. Regular rate and rhythm. Tachycardia. No murmurs, gallops, or rubs. PMI is at the fourth intercostal space in the midclavicular line. LUNGS: Clear to auscultation bilaterally. ABDOMEN: Soft, nontender, and nondistended. No hepatosplenomegaly. Positive bowel sounds. EXTREMITIES: No evidence of edema, clubbing, or cyanosis. TAURUS VASQUEZ Jan 31, 2018 18:17
--- NOTE | 2018-01-31 23:04 | General Progress Note ---
Assessment/Plan Problem List: (1) Altered mental status ICD Codes: R41.82 - Altered mental status, unspecified SNOMED: 577401754 (2) Confused Assessment & Plan: [place] I Dementia with behavior disturbance. PLAN: 1. We will start the patient on Seroquel 25 mg every four hours p.r.n. with anxiety and agitation. We will discontinue the Ativan. 2. We will continue to follow and readjust the medications. ICD Codes: R41.0 - Disorientation, unspecified SNOMED: 474204886 (3) Alzheimer's dementia Assessment & Plan: [place] I Dementia with behavior disturbance. PLAN: 1. We will start the patient on Seroquel 25 mg every four hours p.r.n. with anxiety and agitation. We will discontinue the Ativan. 2. We will continue to follow and readjust the medications. ICD Codes: G30.9 - Alzheimer's disease, unspecified; F02.80 - Dementia in other diseases classified elsewhere without behavioral disturbance SNOMED: 80949311 Qualifiers: (4) Tachycardia ICD Codes: R00.0 - Tachycardia, unspecified SNOMED: 3911368 Assessment/Plan ASSESSMENT: [place] I Dementia with behavior disturbance. seizure last night PLAN: 1. dc Seroquel 25 mg every four hours p.r.n. with anxiety and agitation. 2. cont haldol im prn 3. start zyprexa Subjective Date patient seen: Jan 31, 2018 Allergies: Coded Allergies: No Known Allergies (Unverified , 01/21/18) Subjective the pt less agitated and calm now. confused and not engaged Objective Last 24 Hour Vital Signs Date Time Temp Pulse Resp B/P (MAP) Pulse Ox O2 Delivery O2 Flow Rate FiO2 01/31/18 12:08 98.1 100 20 118/84 97 Nasal Cannula 2.0 98.1 01/31/18 10:27 142/69 01/31/18 10:27 82 142/69 01/31/18 08:00 97.2 82 21 142/69 Nasal Cannula 2.0 97.2 01/31/18 04:00 97.6 107 18 100 Nasal Cannula 2.0 97.6 01/31/18 00:00 97.9 83 19 65/49 83 Nasal Cannula 2.0 97.9 Intake and Output 01/30/18 01/31/18 19:00 07:00 Intake Total 840 ml Output Total 0 ml 600 ml Balance 840 ml -600 ml Intake Oral 840 ml Output Urine Total 600 ml Post Void Residual 0 ml 0 ml Bladder Scan Volume Amount <10 ml <10 ml # Voids 4 Height (Feet): 5 Height (Inches): 9.00 Weight (Pounds): 117 Ender Alvarez M.D. Jan 31, 2018 23:04
--- NOTE | 2018-01-31 23:05 | General Progress Note ---
Assessment/Plan Problem List: (1) Altered mental status ICD Codes: R41.82 - Altered mental status, unspecified SNOMED: 661184933 (2) Confused Assessment & Plan: [place] I Dementia with behavior disturbance. PLAN: 1. We will start the patient on Seroquel 25 mg every four hours p.r.n. with anxiety and agitation. We will discontinue the Ativan. 2. We will continue to follow and readjust the medications. ICD Codes: R41.0 - Disorientation, unspecified SNOMED: 979527267 (3) Alzheimer's dementia Assessment & Plan: [place] I Dementia with behavior disturbance. PLAN: 1. We will start the patient on Seroquel 25 mg every four hours p.r.n. with anxiety and agitation. We will discontinue the Ativan. 2. We will continue to follow and readjust the medications. ICD Codes: G30.9 - Alzheimer's disease, unspecified; F02.80 - Dementia in other diseases classified elsewhere without behavioral disturbance SNOMED: 10259650 Qualifiers: (4) Tachycardia ICD Codes: R00.0 - Tachycardia, unspecified SNOMED: 9676713 Assessment/Plan ASSESSMENT: [place] I Dementia with behavior disturbance. seizure last night PLAN: 1. dc Seroquel 25 mg every four hours p.r.n. with anxiety and agitation. 2. cont haldol im prn 3. start zyprexa Subjective Date patient seen: Jan 30, 2018 Allergies: Coded Allergies: No Known Allergies (Unverified , 01/21/18) Subjective confused and not engaged Objective Last 24 Hour Vital Signs Date Time Temp Pulse Resp B/P (MAP) Pulse Ox O2 Delivery O2 Flow Rate FiO2 01/31/18 12:08 98.1 100 20 118/84 97 Nasal Cannula 2.0 98.1 01/31/18 10:27 142/69 01/31/18 10:27 82 142/69 01/31/18 08:00 97.2 82 21 142/69 Nasal Cannula 2.0 97.2 01/31/18 04:00 97.6 107 18 100 Nasal Cannula 2.0 97.6 01/31/18 00:00 97.9 83 19 65/49 83 Nasal Cannula 2.0 97.9 Intake and Output 01/30/18 01/31/18 19:00 07:00 Intake Total 840 ml Output Total 0 ml 600 ml Balance 840 ml -600 ml Intake Oral 840 ml Output Urine Total 600 ml Post Void Residual 0 ml 0 ml Bladder Scan Volume Amount <10 ml <10 ml # Voids 4 Height (Feet): 5 Height (Inches): 9.00 Weight (Pounds): 117 Ender Alvarez M.D. Jan 31, 2018 23:04
--- NOTE | 2018-02-03 08:13 | Discharge Summary ---
Discharge Summary Hospital Course Date of Admission Jan 21, 2018 at 04:57 Date of Discharge Jan 31, 2018 at 14:40 Admitting Diagnosis ALTERED MENTAL STATUS HPI Patti Villa is a 67 year old female who was admitted on Jan 21, 2018 at 04:57 for Altered Mental Status Hospital Course dc summary #[id number] Discharge Medications New Medications: Benztropine Mesylate* (Benztropine Mesylate*) 1 Mg Tablet 1 MG ORAL BID for 30 Days, TAB Levetiracetam (Keppra) 250 Mg Tablet 750 MG ORAL Q12HR for 30 Days, #60 TAB Olanzapine (Olanzapine) 5 Mg Tablet 5 MG ORAL BEDTIME for 30 Days, TAB Continued Medications: Acetaminophen With Codeine (T#3) (Tylenol #3 Tab*) Y Tab 1 TAB ORAL Q8HR PRN for For Pain, TAB Alendronate Sodium* (Fosamax*) 70 Mg Tablet 70 MG ORAL ONCE A WEEK, TAB Amlodipine Besylate (Norvasc) 5 Mg Tablet 5 MG ORAL DAILY, TAB Cholecalciferol (Vitamin D3) (Vitamin D3) 1,000 Unit Tablet 1000 UNIT PO, TAB Latanoprost* (Xalatan*) 2.5 Ml Drops 1 DROP BOTH EYES BEDTIME, #2.5 ML 0 Refills Multivitamins* (Multivitamins*) 1 Each Tablet 1 TAB ORAL DAILY, TAB 0 Refills Naproxen* (Naprosyn*) 500 Mg Tablet 500 MG ORAL TWICE A DAY, TAB Polyethylene Glycol 3350* (Miralax*) 17 Gm Powd.pack 17 GM ORAL DAILY, PACKET Pregabalin* (Lyrica*) 75 Mg Capsule 75 MG ORAL, CAP Triamcinolone Acet (Triamcinolone Acetonide) 15 Gm Cream..g. 15 GM APPLIC, GM Discontinued Medications: Benztropine Mesylate (Cogentin 1mg*) 1 Mg Tablet 2 MG ORAL DAILY, TAB Benztropine Mesylate* (Benztropine Mesylate*) 2 Mg Tablet 2 MG ORAL BID, TAB Haloperidol* (Haldol*) 1 Mg Tablet 2 MG ORAL DAILY, #20 TAB 0 Refills Lorazepam* (Ativan*) 1 Mg Tablet 1 MG ORAL BID, TAB Oxybutynin Chloride (Oxybutynin Chloride) 5 Mg Tablet 5 MG ORAL, #30 TAB 0 Refills Sertraline Hcl* (Zoloft*) 100 Mg Tablet 100 MG ORAL DAILY, TAB Discharge Condition Upon Discharge: stable Discharge Disposition Patient was discharged to SNF/Subacute Facility(03) Discharge Diagnoses: Discharge Instructions Discharge Instructions Special Instructions I have been assigned to complete a D/C Summary on this account. I was not involved in the patient management Shari Conteh NP ([place]) Feb 03, 2018 08:13
--- NOTE | 2018-02-03 21:36 | Cardiology Report ---
APPROVED REPORT EKG Measurement Heart [id number] [place] 130P78 [id number] Sinus tachycardia Otherwise normal ECG
--- NOTE | 2018-02-04 00:45 | Discharge Summary 2 SIG ---
DATE OF ADMISSION: 01/21/2018 DATE OF DISCHARGE: 01/31/2018 REASON FOR ADMISSION: 67-year-old female with past medical history of Alzheimer's dementia, hypertension, and psychiatric disorder, was sent to emergency room for evaluation for altered mental status. The patient was more altered than usual. The patient was unable to provide any history. Workup revealed stable vital signs except heart rate. The patient was tachycardic with heart rate 116 to 122. EKG showed sinus tachycardia, but no acute ischemic changes. Troponin was negative. Potassium was 3.3, BUN -34, and creatinine -1.4. Chest x-ray revealed no acute cardiopulmonary pathology. CT of the head revealed no acute intracranial pathology. Calcium - 10.5. Pro BNP-369. The patient was given one liter of fluid. The patient was admitted with diagnoses of encephalopathy, dementia Alzheimer type, renal failure age undetermined, hypokalemia, psychiatric disorder, hypercalcemia, and diabetes. HOSPITAL COURSE: The patient admitted to telemetry floor. Neurology consult was requested. The patient noted to have a seizure episode. EEG subsequently revealed no evidence of seizure activity, but was abnormal with mild diffuse slowing reflecting underlying toxic metabolic encephalopathy or diffuse structural lesion as well as a postictal state. Absence of paroxysmal event on a single recording does not rule out seizure disorder. The patient was started on Keppra. In addition, noted episodes of facial and arm twitching. The patient was started on Cogentin. Per Neurology, the patient was in need for optimization of psychiatric medication. Per neurologist, the patient had no neuro deficit; no evidence of stroke. He recommended mobilization, and physical therapy. Psychiatrist seen and evaluated the patient, diagnosed the patient with encephalopathy. Altered mental status was secondary to encephalopathy. per psychiatrist, the patient also had dementia with behavioral disturbances. Psychiatrist optimized psychiatric medication regimen. Initial urinalysis was negative for evidence of UTI upon admission. On 2017, noted leukocytosis - 14.7. Subsequently urine specimen was obtained, which revealed evidence of UTI with pyuria, many bacteria, +3 leukocyte esterase, and positive nitrite. Urine culture was positive for E. coli. ID specialist directed antibiotic regimen. Leukocytosis resolved. Renal ultrasound revealed evidence of cystitis. The patient was on treatment for antibiotics, completed at the hospital. Electrolytes and renal parameters were closely monitored. On 01/23/2018, noted rising creatinine to 3.0. Nephrology consult was requested. As mentioned above, renal ultrasound did not show any hydronephrosis. The patient was started on the IV hydration and the next day, creatinine down to 1.2. Further creatinine was within normal limits. Per band reamer machine operator, the patient likely had elevated creatinine secondary to dehydration, which resolved. Initial hypercalcemia resolved. Blood sugar was managed with sliding scale of insulin. Hemoglobin A1c within normal limits, -5.7. Urologist seen the patient for evidence of urinary retention. The patient was on oxybutynin from the admission. Urologist stopped oxybutynin immediately. He also was concerned that psychiatric medication may be responsible for urinary retention. He recommended outpatient cystoscopy and optimization of psychiatric medication, the latter was done by psychiatrist. He recommended to continue Espinoza catheter upon discharge with periodic changes and follow up with urologist as outpatient for cystoscopy. Automobile Carpets Molder initially consulted for sinus tachycardia. The patient was on telemetry floor initially. EKG showed sinus tachycardia, no acute ischemic changes. Thyroid function test was within normal limits. Echocardiogram revealed preserved ejection fraction of 60% to 65%, mild pulmonary hypertension, and [id number] mitral regurgitation. According to flatwork supervisor, sinus tachycardia improved with IV hydration. Ejection fraction preserved. Left ventricular function normal. Blood pressure was managed with calcium channel aaron and ARB, and was stable. TSH within normal range. DVT prophylaxis provided. Bowel regimen instituted. The patient was stable for discharge. Placement was arranged to long-term facility for continuation of care. FINAL DIAGNOSES: 1. Encephalopathy. 2. Urinary tract infection with Escherichia coli. 3. Alzheimer dementia with behavioral changes. 4. Recurrent generalized seizure disorder. 5. Extrapyramidal movement disorder, drug induced. 6. Hypertension. 7. Sinus tachycardia. 8. Urinary retention. 9. Diabetes mellitus 9. Mild pulmonary hypertension. 10. Hypokalemia, resolved. 11. Acute renal failure, resolved likely due to dehydration. 12. Hypercalcemia, resolved. DISCHARGE MEDICATIONS: See medication reconciliation list. DISCHARGE INSTRUCTIONS: The patient discharged to long-term facility. FOLLOWUP: Followup with medical doctor at the facility. Elvis Lofton M.D. I have been assigned to dictate discharge summary on this account and I was not involved in the patient's management. Shari Conteh N.P. (Vanchtein) DR: Thania JOB#: [id number] CC: JOSUÉ
== END 2018-01-31 14:40 | DRG 71 ==
LOC: EDBD 01:47 → EMR 02:07 → 2E 04:57 → EDBEDREQ 06:42 → 4E 01-24 20:35 → 2W 01-25 23:23 → 4W 01-27 16:53
DX: G93.40 Encephalopathy, unspecified (principal); F02.81 Dementia in other diseases classified elsewhere, unspecified severity, with behavioral disturbance; N17.9 Acute kidney failure, unspecified; I27.20 Pulmonary hypertension, unspecified; G30.9 Alzheimer's disease, unspecified; E83.52 Hypercalcemia; Z68.1 Body mass index [BMI] 19.9 or less, adult; N39.0 Urinary tract infection, site not specified; B96.20 Unspecified Escherichia coli [E. coli] as the cause of diseases classified elsewhere; G40.409 Other generalized epilepsy and epileptic syndromes, not intractable, without status epilepticus; E87.6 Hypokalemia; R00.0 Tachycardia, unspecified; N19 Unspecified kidney failure; G25.70 Drug induced movement disorder, unspecified; E86.0 Dehydration; R33.9 Retention of urine, unspecified; F99 Mental disorder, not otherwise specified; F29 Unspecified psychosis not due to a substance or known physiological condition; N13.9 Obstructive and reflux uropathy, unspecified; I10 Essential (primary) hypertension; I34.0 Nonrheumatic mitral (valve) insufficiency
CPT/HCPCS: 36415; 70450; 71045; 76770; 80053; 80299; 81003; 82550; 82962; 83036; 83735; 83880; 84100; 84300; 84439; 84443; 84481; 84484; 84550; 85007; 85025; 87040; 87086; 87181; 89050; 90630; 90732; 93005; 93306; 95819; 99285; J1815; J8499

== ENCOUNTER 2018-02-24 20:57 | Emergency (ER) | payer MEDICARE, MEDICAID ==
[~2018-02-24] VITALS: Ht 160 cm; Wt 54.4 kg
[~2018-02-24 20:57] MED LIST: ACETAMINOPHEN-1 EAC1 ORAL; ATIVAN1 MG ORAL; BENZTROPINE MESY1 MG ORAL; BENZTROPINE MESY2 MG ORAL; COGENTIN1 MG ORAL; FOSAMAX70 MG ORAL; HALOPERIDOL1 MG ORAL; KENALOG 0.025%15 GM APPLIC; KEPPRA500 MG ORAL; LYRICA75 M1 ORAL; MIRALAX17 G2 ORAL; MULTIVITAMINS1 EAC2 ORAL; NAPROSYN500 M1 ORAL; NORVASC5 MG ORAL; OLANZAPINE5 MG ORAL; OXYBUTYNIN CHLOR5 M1 ORAL; VITAMIN D31000 UNI2 PO; XALATAN2.5 ML BOTH EYES; ZOLOFT100 MG ORAL
[2018-02-24 21:00] VITALS: BP 98/56
--- NOTE | 2018-02-24 21:16 | Emergency Room Report ---
History of Present Illness General Chief Complaint: Altered Level of Consciousness Source: Medical Record, EMS Present Illness HPI 67-year-old female, coming from long-term, history of encephalopathy, type 2 diabetes, dementia, Alzheimer's, DO NOT RESUSCITATE and DO NOT INTUBATE, coming from long-term for altered mental status. EMS her blood checked it was noted to be low, at 20, was given 1 amp of dextrose in the field. Patient was recently admitted to the hospital one month ago for altered mental status baseline unknown however last month pt was talking simple words but not making sense Allergies: Coded Allergies: No Known Allergies (Unverified , 01/21/18) Patient History Limited by: medical condition Past Medical History: see triage record Past Surgical History: unable to obtain Pertinent Family History: unable to obtain Now: No Reviewed Nursing Documentation: PMH: Agreed; PSxH: Agreed Nursing Documentation-PMH Hx Diabetes: Yes History Of Psychiatric Problem: Yes - Dementia, anxiety, alzheimers Review of Systems All Other Systems: limited Physical Exam Vital Signs Date Time Temp Pulse Resp B/P (MAP) Pulse Ox O2 Delivery O2 Flow Rate FiO2 02/24/18 20:34 106 20 108/55 100 Simple Mask 15.0 Sp02 EP Interpretation: reviewed, normal General Appearance: mild distress, lethargic, thin, other - not responsive, Chronically Ill Head: normocephalic, atraumatic Eyes: bilateral eye normal inspection, bilateral eye PERRL, bilateral eye EOMI ENT: no angioedema, dry mucus membranes Neck: normal inspection, full range of motion, supple Respiratory: no respiratory distress, no retraction, other - dec b/s b/l, chest symmetrical Cardiovascular #1: normal inspection, regular rate, rhythm, no edema, normal capillary refill Cardiovascular #2: 2+ radial (R), 2+ radial (L) Gastrointestinal: other - disttended abdomen suprapubic region, no grimace to deep palpation, no guarding or rigidity Musculoskeletal: other - nos igns trauma Neurologic: other - responds to pain and moves ext spont, not talking Psychiatric: other Skin: normal inspection, normal color, no rash, warm/dry, well hydrated, normal turgor Procedures Critical Care Time Critical Care Time 40 minutes of CC time 67-year-old female, DNR/DNI, coming in with altered mental status Found to have renal failure, hyperkalemia, likely secondary to urinary retention , also septic PLAN: IV access, labs, lactate, troponin, Blood/Urine Cx, Abx, IVF Anticipate admission to Tele vs. MARTHA CC time also includes review of labs, review of EMR, discussion with family and paperwork from SNF, d/w hospitalist CC could include dosing of pressors, additional Abx CC time does not include procedures Medical Decision Making Diagnostic Impression: Primary Impression: Altered mental status Additional Impressions: Hypoglycemia Renal failure Urinary retention Elevated LFTs DNR (do not resuscitate) DNI (do not intubate) Hyperkalemia Dementia Pneumonia ER Course 67-year-old female, DNR/DNI, altered mental status DDX: Electrolyte disturbance, hypoglycemia, dehydration, sepsis, UTI, pneumonia, progression of dementia, patient had a recent head CT which did not have acute findings last month Plan: Obtain labs, ua, EKG, CXR ER course: Patient has been monitored during ED stay Heart rate has been about 90-100, blood pressure has been normal Patient noted to have distended abdomen, Espinoza placed, 2 L of urine drained Acute renal failure, worse from last visit one month ago, also with hyperkalemia , given hyperkalemia cocktail Elevated LFTs +septic but BP normal --- given broad spec abx - likely from pneumonia patient has been satting well on NC blood pressure down, systolic 90s, 2nd liter fluid given to pt Sepsis Re-examination Time: 11 PM VS: Temp 99 HR 1001 BP 103/65 RR 20 CVS: RRR Respiratory: Decreased breath sounds bilaterally Peripheral pulses: 2+ radial Capillary refill: <2 seconds Skin exam: warm, dry, no rash, not mottled Disposition: Due to insurance purposes patient will be transferred out, I spoke with Dr. Godoy who has accepted patient for transfer Please note that this Emergency Department Report was dictated using [employer] damage trainee technology software, occasionally this can lead to erroneous entry secondary to interpretation by the dictation equipment. EKG Diagnostic Results EP Interpretation: Yes Rate: Tachycardic Rhythm: NSR ST Segments: No acute changes ASA given to patient: No Rhythm Strip EP Interpretation: Yes Rate: 103 Rhythm: NSR, no PVCs, no ectopy Chest X-ray CXR: Ordered: Yes 1 view Indication: Altered mental status EP interpretation: Yes Interpretation: b/l pnuemonia vs. infilrate Impression: b/l pnuemonia /infilrate vs chf Electronically signed by Bertrand Lopez MD Laboratory Tests Test 02/24/18 21:00 02/24/18 21:15 02/24/18 21:50 Arterial Blood pH 7.310 (7.350-7.450) Arterial Blood Partial Pressure CO2 33.4 mmHg (35.0-45.0) L Arterial Blood Partial Pressure O2 74.7 mmHg (75.0-100.0) L Arterial Blood HCO3 16.6 mmol/L (22.0-26.0) L Arterial Blood Oxygen Saturation 93.6 % (92.0-98.0) Arterial Blood Base Excess -8.8 Chetan Test Positive White Blood Count 20.2 K/UL (4.8-10.8) H Red Blood Count 3.88 M/UL (4.20-5.40) L Hemoglobin 9.8 G/DL (12.0-16.0) L Hematocrit 31.3 % (37.0-47.0) L Mean Corpuscular Volume 81 FL (80-99) Mean Corpuscular Hemoglobin 25.2 PG (27.0-31.0) L Mean Corpuscular Hemoglobin Concent 31.2 G/DL (32.0-36.0) L Red Cell Distribution Width 13.5 % (11.6-14.8) Platelet Count 103 K/UL (150-450) L Mean Platelet Volume 9.2 FL (6.5-10.1) Neutrophils (%) (Auto) % (45.0-75.0) Lymphocytes (%) (Auto) % (20.0-45.0) Monocytes (%) (Auto) % (1.0-10.0) Eosinophils (%) (Auto) % (0.0-3.0) Basophils (%) (Auto) % (0.0-2.0) Differential Total Cells Counted 100 Neutrophils % (Manual) 81 % (45-75) H Lymphocytes % (Manual) 9 % (20-45) L Monocytes % (Manual) 4 % (1-10) Eosinophils % (Manual) 0 % (0-3) Basophils % (Manual) 0 % (0-2) Band Neutrophils 6 % (0-8) Platelet Estimate Decreased L Platelet Morphology Normal Polychromasia 1+ Hypochromasia 1+ Microcytosis 1+ Prothrombin Time 13.7 SEC (9.30-11.50) H Prothrombin Time INR 1.3 (0.9-1.1) H PTT 41 SEC (23-33) H Sodium Level 128 MMOL/L (136-145) L Potassium Level 5.6 MMOL/L (3.5-5.1) H Chloride Level 96 MMOL/L (98-107) L Carbon Dioxide Level 20 MMOL/L (21-32) L Anion Gap 13 mmol/L (5-15) Blood Urea Nitrogen 85 mg/dL (7-18) H Creatinine 6.2 MG/DL (0.55-1.30) H Estimate Glomerular Filtration Rate 8.2 mL/min (>60) Glucose Level 132 MG/DL (74-106) H Lactic Acid Level 1.40 mmol/L (0.66-2.22) Calcium Level 8.5 MG/DL (8.5-10.1) Total Bilirubin 3.7 MG/DL (0.2-1.0) H Direct Bilirubin 2.8 MG/DL (0.0-0.3) H Aspartate Amino Transferase (AST) 39 U/L (15-37) H Alanine Aminotransferase (ALT) 60 U/L (12-78) Alkaline Phosphatase 197 U/L (46-116) H Troponin I 0.000 ng/mL (0.000-0.056) Pro-B-Type Natriuretic Peptide 48091 pg/mL (0-125) H Total Protein 5.5 G/DL (6.4-8.2) L Albumin 1.9 G/DL (3.4-5.0) L Globulin 3.6 g/dL Albumin/Globulin Ratio 0.5 (1.0-2.7) L Urine Color Pale yellow Urine Appearance Cloudy Urine pH 7 (4.5-8.0) Urine Specific [place] 1.005 (1.005-1.035) Urine Protein 2+ (NEGATIVE) H Urine Glucose (UA) Negative (NEGATIVE) Urine Ketones Negative (NEGATIVE) Urine Occult Blood 4+ (NEGATIVE) H Urine Nitrite Negative (NEGATIVE) Urine Bilirubin Negative (NEGATIVE) Urine Urobilinogen Normal MG/DL (0.0-1.0) Urine Leukocyte Esterase 3+ (NEGATIVE) H Urine RBC 2-4 /HPF (0 - 2) H Urine WBC Tntc /HPF (0 - 2) H Urine Squamous Epithelial Cells None /LPF (NONE/OCC) Urine Bacteria None /HPF (NONE) Microbiology Date/Time Source Procedure Growth Status 02/24/18 21:25 Nasal Nares Influenza Types A,B Antigen (MANPREET) - Final Complete Last Vital Signs Date Time Temp Pulse Resp B/P (MAP) Pulse Ox O2 Delivery O2 Flow Rate FiO2 02/24/18 20:34 106 20 108/55 100 Simple Mask 15.0 Disposition: XFER SHT-TRM HOSP Condition: Serious RetinoBertrand M.D. Feb 24, 2018 21:16
[2018-02-24 21:45] LABS: HEMATOCRIT 31.3 % (37.0-47.0); HEMOGLOBIN 9.8 G/DL (12.0-16.0); MEAN CORPUSCULAR VOLUME 81 FL (80-99); PLATELET COUNT 103 K/UL (150-450); RED BLOOD COUNT 3.88 M/UL (4.20-5.40); RED CELL DISTRIBUTION WIDTH 13.5 % (11.6-14.8); WHITE BLOOD COUNT 20.2 K/UL (4.8-10.8)
[2018-02-24 22:02] LABS: INR 1.3 (0.9-1.1)
[2018-02-24 22:16] LABS: ANION GAP 13 mmol/L (5-15); BLOOD UREA NITROGEN 85 mg/dL (7-18); CALCIUM 8.5 MG/DL (8.5-10.1); CARBON DIOXIDE 20 MMOL/L (21-32); CHLORIDE 96 MMOL/L (98-107); CREATININE 6.2 MG/DL (0.55-1.30); POTASSIUM 5.6 MMOL/L (3.5-5.1); SODIUM 128 MMOL/L (136-145)
[2018-02-24] MEDS ORDERED: Piperacillin/Tazobactam 3.375 GM in NS 55 ML IV ONE (22:30)
[2018-02-24] MEDS ORDERED: Vancomycin 1 GM in NS 275 ML IVPB ONE (22:30)
[2018-02-24] MEDS ORDERED: Sodium Bicarbonate 50ml Carp IV ONE (22:30)
[2018-02-24] MEDS ORDERED: Calcium Gluconate 1gm/10ml vial IVP ONE (22:30)
[2018-02-24 22:35] LABS: ALANINE AMINOTRANSFERASE 60 U/L (12-78); ALBUMIN 1.9 G/DL (3.4-5.0); ALBUMIN/GLOBULIN RATIO 0.5 (1.0-2.7); ALKALINE PHOSPHATASE 197 U/L (46-116); ASPARTATE AMINO TRANSFERASE 39 U/L (15-37); BILIRUBIN,TOTAL 3.7 MG/DL (0.2-1.0)
[2018-02-24 22:36] LABS: BILIRUBIN,DIRECT 2.8 MG/DL (0.0-0.3)
[2018-02-24 22:49] LABS: APPEARANCE,URINE CLOUDY; BILIRUBIN, URINE NEGATIVE (NEGATIVE); COLOR,URINE PALE YELLOW; GLUCOSE, URINE (UA) NEGATIVE (NEGATIVE); KETONES,URINE NEGATIVE (NEGATIVE); LEUKOCYTE ESTERASE ,URINE 3+ (NEGATIVE); NITRITE,URINE NEGATIVE (NEGATIVE); PH,URINE 7 (4.5-8.0); PROTEIN,URINE 2+ (NEGATIVE); UROBILINOGEN,URINE NORMAL MG/DL (0.0-1.0)
[2018-02-24] MEDS ORDERED: LORAZEPAM1 MG ORAL (23:20)
[2018-02-24] MEDS ORDERED: ACETAMINOPHEN-1 EAC1 ORAL (23:20)
[2018-02-24] MEDS ORDERED: NOVOLIN R100 UNIT/1 SUBQ (23:20)
[2018-02-24] MEDS ORDERED: TEMAZEPAM30 MG ORAL (23:20)
[2018-02-24] MEDS ORDERED: HALOPERIDOL1 MG ORAL (23:20)
[2018-02-25 01:00] VITALS: BP 89/43
[2018-02-25 02:15] VITALS: BP 99/43
[2018-02-25 02:55] VITALS: BP 99/45
[2018-02-25 03:00] VITALS: BP 99/45
--- NOTE | 2018-02-25 10:47 | Diagnostic Imaging Report ---
Indication: Shortness of breath Technique: One view of the chest Comparison: 01/21/2018 Findings: Interim development of extensive bilateral airspace disease and bilateral pleural fluid. The heart size is normal. Granulomatous marlen calcifications are again demonstrated in the left pulmonary hilum Impression: Extensive bilateral infiltrates versus edema. Probable bilateral pleural effusions
--- NOTE | 2018-03-02 17:49 | Cardiology Report ---
APPROVED REPORT EKG Measurement Heart [id number] CA 144P47 [id number] Sinus tachycardia Possible Left atrial enlargement Low voltage QRS Nonspecific T wave abnormality Abnormal ECG
== END 2018-02-25 03:00 | disposition short-term general hospital (02) ==
LOC: EDBD 20:57 → EMR 21:07
DX: R41.82 Altered mental status, unspecified (principal); E11.649 Type 2 diabetes mellitus with hypoglycemia without coma; Z66 Do not resuscitate; N19 Unspecified kidney failure; R33.9 Retention of urine, unspecified; R94.5 Abnormal results of liver function studies; E87.5 Hyperkalemia; J18.9 Pneumonia, unspecified organism; G30.9 Alzheimer's disease, unspecified; F02.80 Dementia in other diseases classified elsewhere, unspecified severity, without behavioral disturbance, psychotic disturbance, mood disturbance, and anxiety
CPT/HCPCS: 36415; 36600; 71045; 80053; 81003; 82248; 82803; 82962; 83605; 83880; 84484; 85007; 85025; 85610; 85730; 86710; 87040; 87086; 93005; 96361; 96374; 96375; 99291; J0610; J1815; J2543; J3370; J7050

== ENCOUNTER 2018-03-09 04:08 | Inpatient (IN) | payer MEDICARE, MEDICAID ==
[~2018-03-09] VITALS: Ht 172.7 cm; Wt 54.0 kg
[~2018-03-09 04:08] MED LIST changes: +LORAZEPAM1 MG ORAL; +NOVOLIN R100 UNIT/1 SUBQ; +TEMAZEPAM30 MG ORAL
[2018-03-09] MEDS ORDERED: AMLODIPINE BESYL5 MG ORAL (04:15)
[2018-03-09] MEDS ORDERED: VITAMIN D400 INTLU ORAL (04:15)
--- NOTE | 2018-03-09 04:31 | Emergency Room Report ---
History of Present Illness General Chief Complaint: Altered Level of Consciousness Source: Medical Record, EMS Present Illness HPI This is a 67-year-old female with a history dementia, diabetes and other multiple medical problems. She has been in and out of the hospital with visit here in February an admission in January. She was just discharged from [facility] less than 24 hours ago. her hemoglobin was very low and she got blood transfusion. She presents with altered mental status with respiratory distress and vomiting blood. Unable to get a history from patient because of her condition and dementia. History is from the snf note and from EMS. Onset was today. She has nausea and vomiting with a couple episode blood. No diarrhea. No dark stool. No cough. Does appear to be congested. She is a DO NOT RESUSCITATE/DO NOT RESUSCITATE. This is based on the POLST on February 24 ER visit. Allergies: Coded Allergies: No Known Allergies (Unverified , 01/21/18) Patient History Past Medical History: see triage record, old chart reviewed, dementia Past Surgical History: other Pertinent Family History: none Social History: Denies: smoking Now: No Immunizations: other Reviewed Nursing Documentation: PMH: Agreed; PSxH: Agreed Nursing Documentation-PMH Hx Diabetes: Yes History Of Psychiatric Problem: Yes - alzheimers , anxiety, dementia Review of Systems Eye: Denies: eye pain, blurred vision ENT: Denies: ear pain, nose congestion, throat swelling Respiratory: Reports: shortness of breath; Denies: cough Cardiovascular: Denies: chest pain, palpitations Gastrointestinal: Reports: nausea, vomiting, hematemesis; Denies: abdominal pain, diarrhea Musculoskeletal: Denies: back pain, joint pain Skin: Denies: rash Neurological: Denies: headache, numbness Endocrine: Denies: increased thirst, increased urine Hematologic/Lymphatic: Denies: easy bruising All Other Systems: negative except mentioned in HPI Physical Exam Vital Signs Date Time Temp Pulse Resp B/P (MAP) Pulse Ox O2 Delivery O2 Flow Rate FiO2 03/09/18 04:04 98.5 131 16 128/50 100 Room Air 98.4 vitals with tachycardia and hypoxia. Pox was 80s% on RA. Sp02 EP Interpretation: reviewed, normal General Appearance: moderate distress, lethargic, thin, Chronically Ill Head: normocephalic, atraumatic Eyes: bilateral eye PERRL, bilateral eye EOMI ENT: hearing grossly normal, other - frotty sputum Neck: full range of motion, supple, no meningismus Respiratory: chest non-tender, respiratory distress, decreased breath sounds, rhonchi Cardiovascular #1: regular rate, rhythm, no murmur, tachycardia Gastrointestinal: normal bowel sounds, non tender, no organomegaly, no bruit, non-distended, distended - hard mass in lower abd. Musculoskeletal: no calf tenderness Neurologic: grossly normal Skin: warm/dry Procedures Critical Care Time Critical Care Time Critical care is mandated in this patient who presented with respiratory distress. Patient require my urgent intervention to attenuate the risks of () which may lead to cardiovascular collapse and . Critical care time is 35 minutes excluding any reportable procedure. Critical care time included evaluation, multiple reevaluation, looking at old charts, interpreting laboratory and diagnostic data, discussing case with patient and family and consultants, and charting. Medical Decision Making Diagnostic Impression: Primary Impression: Encephalopathy acute Additional Impressions: recurrent generalised seizure activity UTI (urinary tract infection) Qualified Codes: N30.00 - Acute cystitis without hematuria Dehydration Acute urinary retention DL (acute kidney injury) ER Course Patient presents with altered mental status. This may be secondary to seizure activity. Initially, on arrival she was lethargic and shortly afterward had a tonic clonic seizure activity. Her heart rate improved with IV fluid and Ativan. Oxygenation also improve after given Ativan. I see no evidence any or trauma. Her hematocrit emesis made of been blood from oral trauma. Her hemoglobin is 12.6 here. Yesterday at [place] it was 9.4. This probably show hemoconcentration from dehydration. I will admit the patient. I discussed the case with Dr. Pang who accepted pt for admission. Laboratory Tests Test 03/09/18 04:30 03/09/18 05:15 White Blood Count 13.2 K/UL (4.8-10.8) H Red Blood Count 4.45 M/UL (4.20-5.40) Hemoglobin 12.6 G/DL (12.0-16.0) Hematocrit 37.8 % (37.0-47.0) Mean Corpuscular Volume 85 FL (80-99) Mean Corpuscular Hemoglobin 28.2 PG (27.0-31.0) Mean Corpuscular Hemoglobin Concent 33.2 G/DL (32.0-36.0) Red Cell Distribution Width 15.3 % (11.6-14.8) H Platelet Count 866 K/UL (150-450) H Mean Platelet Volume 6.6 FL (6.5-10.1) Neutrophils (%) (Auto) % (45.0-75.0) Lymphocytes (%) (Auto) % (20.0-45.0) Monocytes (%) (Auto) % (1.0-10.0) Eosinophils (%) (Auto) % (0.0-3.0) Basophils (%) (Auto) % (0.0-2.0) Prothrombin Time 11.5 SEC (9.30-11.50) Prothromb Time International Ratio 1.1 (0.9-1.1) Activated Partial Thromboplast Time 29 SEC (23-33) Sodium Level 146 MMOL/L (136-145) H Potassium Level 4.5 MMOL/L (3.5-5.1) Chloride Level 110 MMOL/L (98-107) H Carbon Dioxide Level 26 MMOL/L (21-32) Anion Gap 10 mmol/L (5-15) Blood Urea Nitrogen 42 mg/dL (7-18) H Creatinine 1.4 MG/DL (0.55-1.30) H Estimat Glomerular Filtration Rate 45.8 mL/min (>60) Glucose Level 140 MG/DL (74-106) H Lactic Acid Level 1.10 mmol/L (0.66-2.22) Calcium Level 9.8 MG/DL (8.5-10.1) Total Bilirubin 0.7 MG/DL (0.2-1.0) Aspartate Amino Transf (AST/SGOT) 38 U/L (15-37) H Alanine Aminotransferase (ALT/SGPT) 33 U/L (12-78) Alkaline Phosphatase 157 U/L (46-116) H Total Creatine Kinase 161 U/L (26-308) Creatine Kinase MB 1.6 NG/ML (0.0-3.6) Creatine Kinase MB Relative Index 0.9 Troponin I 0.000 ng/mL (0.000-0.056) Total Protein 9.0 G/DL (6.4-8.2) H Albumin 3.2 G/DL (3.4-5.0) L Globulin 5.8 g/dL Albumin/Globulin Ratio 0.6 (1.0-2.7) L Urine Color Yellow Urine Appearance Clear Urine pH 6 (4.5-8.0) Urine Specific [place] 1.010 (1.005-1.035) Urine Protein 1+ (NEGATIVE) H Urine Glucose (UA) Negative (NEGATIVE) Urine Ketones Negative (NEGATIVE) Urine Occult Blood Negative (NEGATIVE) Urine Nitrite Negative (NEGATIVE) Urine Bilirubin Negative (NEGATIVE) Urine Urobilinogen Normal MG/DL (0.0-1.0) Urine Leukocyte Esterase 2+ (NEGATIVE) H Urine RBC 0-2 /HPF (0 - 2) Urine WBC 5-10 /HPF (0 - 2) H Urine Squamous Epithelial Cells Few /LPF (NONE/OCC) Urine Bacteria Few /HPF (NONE) Lab Results Impression labs show dehydration EKG Diagnostic Results Rate: tachycardiac Rhythm: NSR ST Segments: other - NSST changes Rhythm Strip Diag. Results Rhythm Strip Time: 06:27 EP Interpretation: yes Rate: 110 Rhythm: NSR, no PVC's Chest X-Ray Diagnostic Results Chest X-Ray Diagnostic Results : Chest X-Ray Ordered: Yes # of Views/Limited/Complete: 1 View Indication: Shortness of Breath EP Interpretation: Yes Interpretation: no consolidation, no effusion, no pneumothorax, no acute cardiopulmonary disease Impression: No acute disease Electronically Signed by: Adam Mina MD Last Vital Signs Date Time Temp Pulse Resp B/P (MAP) Pulse Ox O2 Delivery O2 Flow Rate FiO2 03/09/18 04:04 98.5 131 16 128/50 100 Room Air 98.4 Status: improved Disposition: ADMITTED INPATIENT Condition: Serious Referrals: NON PHYSICIAN (PCP) ADAM MINA M.D. Mar 09, 2018 04:31
[2018-03-09 04:51] LABS: ANION GAP 10 mmol/L (5-15); BLOOD UREA NITROGEN 42 mg/dL (7-18); CALCIUM 9.8 MG/DL (8.5-10.1); CARBON DIOXIDE 26 MMOL/L (21-32); CHLORIDE 110 MMOL/L (98-107); CREATININE 1.4 MG/DL (0.55-1.30); INR 1.1 (0.9-1.1); POTASSIUM 4.5 MMOL/L (3.5-5.1); SODIUM 146 MMOL/L (136-145)
[2018-03-09 04:57] VITALS: BP 149/67
[2018-03-09 05:04] LABS: ALANINE AMINOTRANSFERASE 33 U/L (12-78); ALBUMIN 3.2 G/DL (3.4-5.0); ALBUMIN/GLOBULIN RATIO 0.6 (1.0-2.7); ALKALINE PHOSPHATASE 157 U/L (46-116); ASPARTATE AMINO TRANSFERASE 38 U/L (15-37); BILIRUBIN,TOTAL 0.7 MG/DL (0.2-1.0); CKMB 1.6 NG/ML (0.0-3.6); CREATINE KINASE 161 U/L (26-308); HEMATOCRIT 37.8 % (37.0-47.0); HEMOGLOBIN 12.6 G/DL (12.0-16.0); MEAN CORPUSCULAR VOLUME 85 FL (80-99); PLATELET COUNT 866 K/UL (150-450); RED BLOOD COUNT 4.45 M/UL (4.20-5.40); RED CELL DISTRIBUTION WIDTH 15.3 % (11.6-14.8); WHITE BLOOD COUNT 13.2 K/UL (4.8-10.8)
[2018-03-09] MEDS ORDERED: LORazepam Inj 2mg/ml 1ml ONE (05:14)
[2018-03-09] MEDS ORDERED: levETIRAcetam 500mg/NS100ml 100 ML IVPB ONE (05:15)
[2018-03-09] MEDS ORDERED: LORazepam Inj 2mg/ml 1ml IV ONE (05:15)
[2018-03-09 05:23] LABS: APPEARANCE,URINE CLEAR; BILIRUBIN, URINE NEGATIVE (NEGATIVE); COLOR,URINE YELLOW; GLUCOSE, URINE (UA) NEGATIVE (NEGATIVE); KETONES,URINE NEGATIVE (NEGATIVE); LEUKOCYTE ESTERASE ,URINE 2+ (NEGATIVE); NITRITE,URINE NEGATIVE (NEGATIVE); PH,URINE 6 (4.5-8.0); PROTEIN,URINE 1+ (NEGATIVE); UROBILINOGEN,URINE NORMAL MG/DL (0.0-1.0)
[2018-03-09] MEDS ORDERED: cefTRIAXone 1 GM in NS 55 ML IVPB ONE (06:00)
[2018-03-09 06:24] VITALS: BP 117/47
[2018-03-09 08:00] VITALS: BP 132/82
--- NOTE | 2018-03-09 09:10 | Diagnostic Imaging Report ---
Indication: Shortness of breath Technique: One view of the chest Comparison: 02/24/2018 Findings: Previously demonstrated bilateral infiltrates have resolved. Lungs and pleural spaces currently clear. Calcified granulomatous lymph nodes are seen in the left hilum. The heart size is normal Impression: Evidence old granulomatous disease No acute process Interim clearing of previously demonstrated bilateral infiltrates
[2018-03-09 12:00] VITALS: BP 127/65
[2018-03-09 16:00] VITALS: BP 141/73
--- NOTE | 2018-03-09 16:45 | Cardiology Report ---
APPROVED REPORT EKG Measurement Heart [id number] [place] [id number] Sinus tachycardia Biatrial enlargement Abnormal ECG
[2018-03-09] MEDS ORDERED: D5W IV SCH (17:00)
[2018-03-09] MEDS ORDERED: LEVETIRACETAM IV SCH (17:00)
[2018-03-09] MEDS: Benztropine 1mg tab ORAL SCH (18:22)
[2018-03-09] MEDS: Docusate 100mg cap ORAL SCH (18:22)
[2018-03-09 20:00] VITALS: BP 146/80
[2018-03-09] MEDS: Haloperidol 1mg tab ORAL SCH (21:53)
[2018-03-09] MEDS: Latanoprost 0.005% Opth 2.5ml Soln BOTH EYES SCH (21:53)
[2018-03-10] VITALS: BP 137/75
--- NOTE | 2018-03-10 01:45 | History and Physical Report ---
DATE OF ADMISSION: 03/09/2018 HISTORY OF PRESENT ILLNESS: This is a 67-year-old halfway resident, who was brought to the hospital with altered mental status. Apparently, the patient was noted to have change in mental status and also had hematemesis. The patient cannot provide a history, as she is apparently postictal. It is noted that she was in [facility] 24 hours ago where she was transfused. The patient is DNR with a documented POLST with it. I have reviewed old records and note that she has a history of dementia, hypertension, and psychiatric history. PAST SURGICAL HISTORY: None reported. HOME MEDICATIONS: Included Gates, Fosamax, amlodipine, Cogentin, Ativan, Naprosyn, Neurontin, and Zoloft. ALLERGIES: None reported. PHYSICAL EXAMINATION: GENERAL: An elderly female. HEENT: Unremarkable. LUNGS: Clear breath sounds bilaterally. ABDOMEN: Soft. NEUROLOGIC: Nonfocal. The patient is a very poor historian. She is at this time nonverbal to me. IMPRESSION: 1. Seizure disorder. 2. Recent gastrointestinal bleed. 3. Status post blood transfusion. 4. Anemia. 5. Urinary tract infection. 6. Chronic encephalopathy. 7. Sinus tachycardia. DISCUSSION: I have reviewed the patient's x-ray of chest, which shows there is evidence of old granulomatous disease, but no acute pathology. Her lab testing shows white count 25, hemoglobin of 12, and platelet count is elevated. She has a creatinine of 1.4. Coagulations are negative. Urinalysis shows evidence of pyuria. I will consult Neurology. However, at this time, I am having difficulty contacting for the neurologist. I will start her on Keppra 750 mg b.i.d. I note that she was also on this medication at the halfway, although she was not on it when she was here last admission. I will avoid any drugs that precipitate seizure. Hold off on antibiotics. We will consult GI with a history of hematemesis to follow carefully. She is DNR/DNI. Elmer Pang M.D. DR: NEL JOB#: [id number] CC:
[2018-03-10 04:00] VITALS: BP 134/65
[2018-03-10] MEDS: Tylenol #3 tab (300mg/30mg) ORAL PRN (04:24)
[2018-03-10 09:25] VITALS: BP 143/75
[2018-03-10] MEDS: Docusate 100mg cap ORAL SCH (09:27)
[2018-03-10] MEDS: Lyrica 75mg cap ORAL SCH (09:28)
[2018-03-10] MEDS: Benztropine 1mg tab ORAL SCH ×2 (09:28→16:55)
--- NOTE | 2018-03-10 10:01 | GI Initial Consult Note ---
GerdaAlejandrina Lopez N.P. 03/10/18 1001: History of Present Illness General Date patient seen: Mar 10, 2018 Time patient seen: 10:00 Reason for Hospitalization: Altered Level of Consciousness Referring physician: PABLO GREY Reason for Consultation: HEMATEMESIS Present Illness HPI HISTORY OF PRESENT ILLNESS: This is a 67-year-old snf resident, who was brought to the hospital with altered mental status. Apparently, the patient was noted to have change in mental status and also had hematemesis. The patient cannot provide a history, as she is apparently postictal. It is noted that she was in [facility] 24 hours ago where she was transfused. The patient is DNR with a documented POLST with it. I have reviewed old records and note that she has a history of dementia, hypertension, and psychiatric history. GI consulted for reports of hematemesis. Pt seen, awake, alert with noted shivers from current fever. No active s/sx of N/V/D. Has NGT with no output. Per report patient had episode of hematemesis. All history obtained from medical record. Labs reviewed show mild leukocytosis, anemia, abnormal LFTs with renal insufficiency. Unknown history of endoscopy / colonoscopy. PAST SURGICAL HISTORY: None reported. Home Meds Active Scripts Levetiracetam (Keppra) 250 Mg Tablet, 750 MG ORAL Q12HR for 30 Days, #60 TAB Prov:Pablo Grey MD 01/30/18 Benztropine Mesylate* (BENZTROPINE MESYLATE*) 1 Mg Tablet, 1 MG ORAL BID for 30 Days, TAB Prov:Pablo Grey MD 01/30/18 Olanzapine (OLANZAPINE) 5 Mg Tablet, 5 MG ORAL BEDTIME for 30 Days, TAB Prov:Pablo Grey MD 01/30/18 Reported Medications Vitamin D (Vitamin D3) 400 Unit Tablet, 1000 UNITS ORAL DAILY, TAB 03/09/18 Amlodipine Besylate* (AMLODIPINE BESYLATE*) 5 Mg Tablet, 5 MG ORAL DAILY, TAB 03/09/18 Acetaminophen With Codeine (T#3) (TYLENOL #3 TAB*) Y Tab, 1 TAB ORAL Q4H PRN for For Pain, TAB 02/24/18 Temazepam* (TEMAZEPAM*) 30 Mg Capsule, 15 MG ORAL BEDTIME PRN for Insomnia, CAP 02/24/18 Insulin Regular, Human* (NOVOLIN R*) 100 Unit/1 Ml Vial, 0 SUBQ .SLIDING SCALE, UNITS 02/24/18 Haloperidol* (HALDOL*) 1 Mg Tablet, 1 MG ORAL DAILY, #20 TAB 0 Refills 02/24/18 Lorazepam* (LORAZEPAM*) 1 Mg Tablet, 1 MG ORAL THREE TIMES A DAY, TAB 02/24/18 Polyethylene Glycol 3350* (MIRALAX*) 17 Gm Powd.pack, 17 GM ORAL DAILY, PACKET 01/21/18 Multivitamins* (MULTIVITAMINS*) 1 Each Tablet, 1 TAB ORAL DAILY, TAB 0 Refills 01/21/18 Amlodipine Besylate (Norvasc) 5 Mg Tablet, 5 MG ORAL DAILY, TAB 01/21/18 Cholecalciferol (Vitamin D3) (VITAMIN D3) 1,000 Unit Tablet, 1000 UNIT PO, TAB 01/21/18 Naproxen* (NAPROSYN*) 500 Mg Tablet, 500 MG ORAL TWICE A DAY, TAB 01/21/18 Pregabalin* (LYRICA*) 75 Mg Capsule, 75 MG ORAL, CAP 01/21/18 Alendronate Sodium* (FOSAMAX*) 70 Mg Tablet, 70 MG ORAL ONCE A WEEK, TAB 01/21/18 Acetaminophen With Codeine (T#3) (TYLENOL #3 TAB*) Y Tab, 1 TAB ORAL Q8HR PRN for For Pain, TAB 01/21/18 Latanoprost* (XALATAN*) 2.5 Ml Drops, 1 DROP BOTH EYES BEDTIME, #2.5 ML 0 Refills 01/21/18 Triamcinolone Acet (Triamcinolone Acetonide) 15 Gm Cream..g., 15 GM APPLIC, GM 01/21/18 Med list reviewed/reconciled: Yes Allergies: Coded Allergies: No Known Allergies (Unverified , 01/21/18) Patient History Limited by: medical condition History Provided By: Medical Record Review of Systems All Other Systems: limited Physical Exam Vital Signs Date Time Temp Pulse Resp B/P (MAP) Pulse Ox O2 Delivery O2 Flow Rate FiO2 03/09/18 04:04 98.5 131 16 128/50 100 Room Air 98.4 03/09/18 04:57 15.0 Sp02 EP Interpretation: reviewed, normal General Appearance: well appearing, no apparent distress, alert, thin Head: normocephalic EENT: PERRL/EOMI, normal ENT inspection Neck: supple Respiratory: normal breath sounds, no respiratory distress Cardiovascular: normal rate Gastrointestinal: normal inspection, non tender, soft, normal bowel sounds, non -distended Rectal: deferred Genitourinary: no CVA tenderness Musculoskeletal: normal inspection, back normal Neurologic: alert, responsive Skin: normal inspection, normal color, no rash, warm/dry, palpation normal, well hydrated Lymphatic: normal inspection, no adenopathy Current Medications Current Medications Medications (Trade) Dose Ordered Sig/Dae Route PRN Reason Start Time Stop Time Status Last Admin Dose Admin Acetaminophen (Tylenol) 650 mg Q6H PRN ORAL Mild Pain/Temp > 100.5 03/10/18 09:45 04/09/18 09:44 03/10/18 09:54 Acetaminophen/ Codeine Phosphate (Tylenol #3) 1 tab Q6H PRN ORAL Moderate Pain (Pain Scale 4-6) 03/09/18 10:45 03/16/18 10:44 03/10/18 04:24 Amlodipine Besylate (Norvasc) 5 mg DAILY ORAL 03/10/18 09:00 04/09/18 08:59 03/10/18 09:28 Benztropine Mesylate (Cogentin) 1 mg BID ORAL 03/09/18 18:00 04/08/18 17:59 03/10/18 09:28 Dextrose 1,000 ml @ 50 mls/hr Q20H IV 03/10/18 09:45 04/09/18 09:44 03/10/18 09:54 Docusate Sodium (Colace) 100 mg TWICE A DAY ORAL 03/09/18 18:00 04/08/18 17:59 03/10/18 09:27 Haloperidol (Haldol) 1 mg QHS ORAL 03/09/18 21:00 04/08/18 20:59 03/09/18 21:53 Latanoprost (Xalatan) 1 drop BEDTIME BOTH EYES 03/09/18 21:00 04/08/18 20:59 03/09/18 21:53 Levetiracetam (Keppra) 750 mg Q12HR ORAL 03/09/18 21:00 04/08/18 20:59 03/10/18 09:27 Olanzapine (ZyPREXA) 5 mg BEDTIME ORAL 03/09/18 21:00 04/08/18 20:59 03/09/18 21:53 Pantoprazole (Protonix) 40 mg DAILY ORAL 03/10/18 09:00 04/09/18 08:59 03/10/18 09:28 Pregabalin (Lyrica) 75 mg DAILY ORAL 03/10/18 09:00 04/09/18 08:59 03/10/18 09:28 GI: Plan Problems: (1) Hematemesis (2) Anemia (3) LFTs abnormal (4) Renal insufficiency (5) Encephalopathy acute (6) Alzheimer's dementia (7) Dehydration (8) Altered mental status Plan EGD tomorrow. - NPO @ [place]. - hold all blood thinners NGT >> fu ST evaluation electrolyte correction anemia work up OB stool r/o GI bleed monitor H&H, prn transfusions bowel regime ppi fu labs Discussed with Dr. Stafford. Thank you for this patient referral, we will follow. VIRGINIA STAFFORD 03/11/18 1157: History of Present Illness General Reason for Hospitalization: Altered Level of Consciousness Present Illness Home Meds Active Scripts Levetiracetam (Keppra) 250 Mg Tablet, 750 MG ORAL Q12HR for 30 Days, #60 TAB Prov:Pablo Grey MD 01/30/18 Benztropine Mesylate* (BENZTROPINE MESYLATE*) 1 Mg Tablet, 1 MG ORAL BID for 30 Days, TAB Prov:Pablo Grey MD 01/30/18 Olanzapine (OLANZAPINE) 5 Mg Tablet, 5 MG ORAL BEDTIME for 30 Days, TAB Prov:Pablo Grey MD 01/30/18 Reported Medications Vitamin D (Vitamin D3) 400 Unit Tablet, 1000 UNITS ORAL DAILY, TAB 03/09/18 Amlodipine Besylate* (AMLODIPINE BESYLATE*) 5 Mg Tablet, 5 MG ORAL DAILY, TAB 03/09/18 Acetaminophen With Codeine (T#3) (TYLENOL #3 TAB*) Y Tab, 1 TAB ORAL Q4H PRN for For Pain, TAB 02/24/18 Temazepam* (TEMAZEPAM*) 30 Mg Capsule, 15 MG ORAL BEDTIME PRN for Insomnia, CAP 02/24/18 Insulin Regular, Human* (NOVOLIN R*) 100 Unit/1 Ml Vial, 0 SUBQ .SLIDING SCALE, UNITS 02/24/18 Haloperidol* (HALDOL*) 1 Mg Tablet, 1 MG ORAL DAILY, #20 TAB 0 Refills 02/24/18 Lorazepam* (LORAZEPAM*) 1 Mg Tablet, 1 MG ORAL THREE TIMES A DAY, TAB 02/24/18 Polyethylene Glycol 3350* (MIRALAX*) 17 Gm Powd.pack, 17 GM ORAL DAILY, PACKET 01/21/18 Multivitamins* (MULTIVITAMINS*) 1 Each Tablet, 1 TAB ORAL DAILY, TAB 0 Refills 01/21/18 Amlodipine Besylate (Norvasc) 5 Mg Tablet, 5 MG ORAL DAILY, TAB 01/21/18 Cholecalciferol (Vitamin D3) (VITAMIN D3) 1,000 Unit Tablet, 1000 UNIT PO, TAB 01/21/18 Naproxen* (NAPROSYN*) 500 Mg Tablet, 500 MG ORAL TWICE A DAY, TAB 01/21/18 Pregabalin* (LYRICA*) 75 Mg Capsule, 75 MG ORAL, CAP 01/21/18 Alendronate Sodium* (FOSAMAX*) 70 Mg Tablet, 70 MG ORAL ONCE A WEEK, TAB 01/21/18 Acetaminophen With Codeine (T#3) (TYLENOL #3 TAB*) Y Tab, 1 TAB ORAL Q8HR PRN for For Pain, TAB 01/21/18 Latanoprost* (XALATAN*) 2.5 Ml Drops, 1 DROP BOTH EYES BEDTIME, #2.5 ML 0 Refills 01/21/18 Triamcinolone Acet (Triamcinolone Acetonide) 15 Gm Cream..g., 15 GM APPLIC, GM 01/21/18 Allergies: Coded Allergies: No Known Allergies (Unverified , 01/21/18) GI: Plan Plan The patient was seen and examined at bedside and all new and available data was reviewed in the patients chart. I agree with the above findings, impression and plan. (Patient seen earlier today. Signature stamp does not reflect patient encounter time.). - MD Gerda Small,[facility] Mar 10, 2018 10:01 VIRGINIA STAFFORD Mar 11, 2018 11:57
--- NOTE | 2018-03-10 10:03 | Pulmonology Progress Note ---
Assessment/Plan Assessment/Plan 1. Seizure disorder. 2. Recent gastrointestinal bleed. 3. Status post blood transfusion. 4. Anemia. 5. Urinary tract infection. 6. Chronic encephalopathy. 7. Sinus tachycardia. DISCUSSION: Continue Keppra 750 mg b.i.d. Consult ID. GI consult called. She is DNR/DNI. Subjective Interval Events: Febrile to 102. Na high; more awake today; NGT in place Constitutional: Reports: no symptoms HEENT: Repors: no symptoms Respiratory: Reports: no symptoms Cardiovascular: Reports: no symptoms Gastrointestinal/Abdominal: Reports: no symptoms Genitourinary: Reports: no symptoms Neurologic: Reports: no symptoms Allergies: Coded Allergies: No Known Allergies (Unverified , 01/21/18) Objective Last 24 Hour Vital Signs Date Time Temp Pulse Resp B/P (MAP) Pulse Ox O2 Delivery O2 Flow Rate FiO2 03/10/18 09:54 102.4 03/10/18 09:28 102.4 03/10/18 09:28 128 143/75 03/10/18 09:25 102.4 128 20 143/75 96 Nasal Cannula 2.0 102.4 03/10/18 07:44 129 03/10/18 05:23 99.3 03/10/18 04:24 100.0 03/10/18 04:00 118 03/10/18 04:00 100.0 133 20 134/65 96 Nasal Cannula 2.0 100.0 03/10/18 00:00 98.2 131 19 137/75 92 Nasal Cannula 2.0 98.2 03/10/18 00:00 115 03/09/18 20:00 141 03/09/18 20:00 97.9 141 20 146/80 97 Nasal Cannula 2.0 97.9 03/09/18 16:00 132 03/09/18 16:00 97.9 122 20 141/73 99 Nasal Cannula 2.0 97.9 03/09/18 12:00 116 03/09/18 12:00 98.1 118 18 127/65 98 Nasal Cannula 2.0 98.1 Intake and Output 03/09/18 03/10/18 19:00 07:00 Intake Total 150 ml Output Total 1000 ml 700 ml Balance -1000 ml -550 ml Intake Free Water 150 ml Output Urine Total 1000 ml 700 ml General Appearance: no acute distress HEENT: normocephalic Respiratory/Chest: chest wall non-tender, lungs clear Cardiovascular: normal peripheral pulses, normal rate Abdomen: normal bowel sounds Current Medications Medications (Trade) Dose Ordered Sig/Dae Route PRN Reason Start Time Stop Time Status Last Admin Dose Admin Acetaminophen (Tylenol) 650 mg Q6H PRN ORAL Mild Pain/Temp > 100.5 03/10/18 09:45 04/09/18 09:44 03/10/18 09:54 Acetaminophen/ Codeine Phosphate (Tylenol #3) 1 tab Q6H PRN ORAL Moderate Pain (Pain Scale 4-6) 03/09/18 10:45 03/16/18 10:44 03/10/18 04:24 Amlodipine Besylate (Norvasc) 5 mg DAILY ORAL 03/10/18 09:00 04/09/18 08:59 03/10/18 09:28 Benztropine Mesylate (Cogentin) 1 mg BID ORAL 03/09/18 18:00 04/08/18 17:59 03/10/18 09:28 Dextrose 1,000 ml @ 50 mls/hr Q20H IV 03/10/18 09:45 04/09/18 09:44 03/10/18 09:54 Docusate Sodium (Colace) 100 mg TWICE A DAY ORAL 03/09/18 18:00 04/08/18 17:59 03/10/18 09:27 Haloperidol (Haldol) 1 mg QHS ORAL 03/09/18 21:00 04/08/18 20:59 03/09/18 21:53 Latanoprost (Xalatan) 1 drop BEDTIME BOTH EYES 03/09/18 21:00 04/08/18 20:59 03/09/18 21:53 Levetiracetam (Keppra) 750 mg Q12HR ORAL 03/09/18 21:00 04/08/18 20:59 03/10/18 09:27 Olanzapine (ZyPREXA) 5 mg BEDTIME ORAL 03/09/18 21:00 04/08/18 20:59 03/09/18 21:53 Pantoprazole (Protonix) 40 mg DAILY ORAL 03/10/18 09:00 04/09/18 08:59 03/10/18 09:28 Pregabalin (Lyrica) 75 mg DAILY ORAL 03/10/18 09:00 04/09/18 08:59 03/10/18 09:28 Elmer Pang MD Mar 10, 2018 10:03
--- NOTE | 2018-03-10 10:22 | Diagnostic Imaging Report ---
Indication: Post nasogastric tube placement Technique: One view of the upper abdomen Comparison: None Findings: There is a nasogastric tube in place, tip projecting at the level of the gastric antrum body junction, proximal port just beyond the gastroesophageal junction. Bowel gas pattern is unremarkable. Impression: Satisfactory position of nasogastric tube
[2018-03-10 10:27] LABS: BASOPHILS % (AUTO) 0.3 % (0.0-2.0); HEMATOCRIT 30.9 % (37.0-47.0); LYMPHOCYTES % (AUTO) 12.7 % (20.0-45.0); MEAN CORPUSCULAR VOLUME 85 FL (80-99); MONOCYTES % (AUTO) 6.7 % (1.0-10.0); NEUTROPHILS % (AUTO) 80.3 % (45.0-75.0); PLATELET COUNT 545 K/UL (150-450); RED BLOOD COUNT 3.62 M/UL (4.20-5.40); RED CELL DISTRIBUTION WIDTH 15.2 % (11.6-14.8); WHITE BLOOD COUNT 10.2 K/UL (4.8-10.8)
[2018-03-10 10:49] LABS: ALANINE AMINOTRANSFERASE 29 U/L (12-78); ALBUMIN 2.6 G/DL (3.4-5.0); ALBUMIN/GLOBULIN RATIO 0.6 (1.0-2.7); ALKALINE PHOSPHATASE 131 U/L (46-116); ANION GAP 10 mmol/L (5-15); ASPARTATE AMINO TRANSFERASE 26 U/L (15-37); BILIRUBIN,TOTAL 0.7 MG/DL (0.2-1.0); BLOOD UREA NITROGEN 35 mg/dL (7-18); CALCIUM 9.2 MG/DL (8.5-10.1); CARBON DIOXIDE 25 MMOL/L (21-32); CHLORIDE 121 MMOL/L (98-107); POTASSIUM 3.2 MMOL/L (3.5-5.1); SODIUM 156 MMOL/L (136-145)
[2018-03-10] MEDS ORDERED: cefTRIAXone 1 GM in D5W 110 ML IVPB SCH (11:00)
[2018-03-10 12:15] VITALS: BP 133/71
--- NOTE | 2018-03-10 12:17 | Infectious Diseases Prog Note ---
Assessment/Plan Problems: (1) Sepsis Assessment & Plan: will obtain blood culture x2 , stool for C diff and CXR to rule out new infiltrates , and start vancomycin with cefepime empiric coverage for now (2) UTI (urinary tract infection) Assessment & Plan: will send urine culture and start cefepime empirically (3) DL (acute kidney injury) Assessment & Plan: due to the above , continue hydration, avoid nephrotoxic meds, monitor UOP (4) Encephalopathy acute Assessment & Plan: metabolic VS toxic VS sepsis related , recommend neurology consult Subjective Allergies: Coded Allergies: No Known Allergies (Unverified , 01/21/18) Objective Vital Signs Last 24 Hour Vital Signs Date Time Temp Pulse Resp B/P (MAP) Pulse Ox O2 Delivery O2 Flow Rate FiO2 03/10/18 10:53 101.5 03/10/18 10:27 102.4 03/10/18 09:54 102.4 03/10/18 09:28 102.4 03/10/18 09:28 128 143/75 03/10/18 09:25 102.4 128 20 143/75 96 Nasal Cannula 2.0 102.4 03/10/18 07:44 129 03/10/18 05:23 99.3 03/10/18 04:24 100.0 03/10/18 04:00 118 03/10/18 04:00 100.0 133 20 134/65 96 Nasal Cannula 2.0 100.0 03/10/18 00:00 98.2 131 19 137/75 92 Nasal Cannula 2.0 98.2 03/10/18 00:00 115 03/09/18 20:00 141 03/09/18 20:00 97.9 141 20 146/80 97 Nasal Cannula 2.0 97.9 03/09/18 16:00 132 03/09/18 16:00 97.9 122 20 141/73 99 Nasal Cannula 2.0 97.9 Height (Feet): 5 Height (Inches): 8.00 Weight (Pounds): 119 Microbiology Date/Time Source Procedure Growth Status 03/09/18 04:25 Blood Blood Culture - Preliminary Resulted 03/09/18 04:45 Nasal Nares MRSA Culture - Final Staphylococcus Aureus - Mrsa Complete Laboratory Tests Test 03/10/18 08:15 White Blood Count 10.2 K/UL (4.8-10.8) Red Blood Count 3.62 M/UL (4.20-5.40) L Hemoglobin 10.0 G/DL (12.0-16.0) L Hematocrit 30.9 % (37.0-47.0) L Mean Corpuscular Volume 85 FL (80-99) Mean Corpuscular Hemoglobin 27.6 PG (27.0-31.0) Mean Corpuscular Hemoglobin Concent 32.3 G/DL (32.0-36.0) Red Cell Distribution Width 15.2 % (11.6-14.8) H Platelet Count 545 K/UL (150-450) H Mean Platelet Volume 6.1 FL (6.5-10.1) L Neutrophils (%) (Auto) 80.3 % (45.0-75.0) H Lymphocytes (%) (Auto) 12.7 % (20.0-45.0) L Monocytes (%) (Auto) 6.7 % (1.0-10.0) Eosinophils (%) (Auto) 0.0 % (0.0-3.0) Basophils (%) (Auto) 0.3 % (0.0-2.0) Sodium Level 156 MMOL/L (136-145) H Potassium Level 3.2 MMOL/L (3.5-5.1) L Chloride Level 121 MMOL/L (98-107) H Carbon Dioxide Level 25 MMOL/L (21-32) Anion Gap 10 mmol/L (5-15) Blood Urea Nitrogen 35 mg/dL (7-18) H Creatinine 1.0 MG/DL (0.55-1.30) Estimat Glomerular Filtration Rate > 60 mL/min (>60) Glucose Level 112 MG/DL (74-106) H Calcium Level 9.2 MG/DL (8.5-10.1) Total Bilirubin 0.7 MG/DL (0.2-1.0) Aspartate Amino Transf (AST/SGOT) 26 U/L (15-37) Alanine Aminotransferase (ALT/SGPT) 29 U/L (12-78) Alkaline Phosphatase 131 U/L (46-116) H Total Protein 7.2 G/DL (6.4-8.2) Albumin 2.6 G/DL (3.4-5.0) L Globulin 4.6 g/dL Albumin/Globulin Ratio 0.6 (1.0-2.7) L Current Medications Medications (Trade) Dose Ordered Sig/Dae Route PRN Reason Start Time Stop Time Status Last Admin Dose Admin Acetaminophen (Tylenol) 650 mg Q6H PRN ORAL Mild Pain/Temp > 100.5 03/10/18 09:45 04/09/18 09:44 03/10/18 09:54 Acetaminophen/ Codeine Phosphate (Tylenol #3) 1 tab Q6H PRN ORAL Moderate Pain (Pain Scale 4-6) 03/09/18 10:45 03/16/18 10:44 03/10/18 04:24 Amlodipine Besylate (Norvasc) 5 mg DAILY ORAL 03/10/18 09:00 04/09/18 08:59 03/10/18 09:28 Benztropine Mesylate (Cogentin) 1 mg BID ORAL 03/09/18 18:00 04/08/18 17:59 03/10/18 09:28 Ceftriaxone Sodium 1 gm/ Dextrose 110 ml @ 220 mls/hr Q24H IVPB 03/10/18 11:00 03/17/18 10:59 03/10/18 11:29 Dextrose 1,000 ml @ 50 mls/hr Q20H IV 03/10/18 09:45 04/09/18 09:44 03/10/18 09:54 Docusate Sodium (Colace) 100 mg TWICE A DAY NG 03/10/18 18:00 04/09/18 17:59 Haloperidol (Haldol) 1 mg QHS ORAL 03/09/18 21:00 04/08/18 20:59 03/09/18 21:53 Latanoprost (Xalatan) 1 drop BEDTIME BOTH EYES 03/09/18 21:00 04/08/18 20:59 03/09/18 21:53 Levetiracetam (Keppra) 750 mg Q12HR ORAL 03/09/18 21:00 04/08/18 20:59 03/10/18 09:27 Levofloxacin (Levaquin) 500 mg Q24H ORAL 03/10/18 17:00 03/17/18 16:59 Olanzapine (ZyPREXA) 5 mg BEDTIME ORAL 03/09/18 21:00 04/08/18 20:59 03/09/18 21:53 Pantoprazole (Protonix) 40 mg DAILY ORAL 03/10/18 09:00 04/09/18 08:59 03/10/18 09:28 Pregabalin (Lyrica) 75 mg DAILY ORAL 03/10/18 09:00 04/09/18 08:59 03/10/18 09:28 Liv Graham M.D. Mar 10, 2018 12:17
[2018-03-10] MEDS ORDERED: Vancomycin 1250mg/D5W 250ml IVPB ONE (13:00)
--- NOTE | 2018-03-10 13:50 | Diagnostic Imaging Report ---
Indication: Cough Technique: One view of the chest Comparison: 03/09/2018 Findings: Lungs and pleural spaces are clear. The heart size is normal. Interim placement of a nasogastric tube, tip which projects at the level of the gastric body. Calcite granulomas lymph nodes are again demonstrated in the left pulmonary hilum Impression: Satisfactory nasogastric intubation No acute process otherwise. Stable findings as described
[2018-03-10] MEDS: Cefepime HCl 2 GM in D5W 110 ML IVPB SCH (14:59)
--- NOTE | 2018-03-10 15:57 | Diagnostic Imaging Report ---
Indication: Post nasogastric tube placement Technique: One view of the upper abdomen including most of the chest Comparison: 03/09/2018 Findings: Is a nasogastric tube in place, tip of which projects at a similar position as on the earlier study, tip at the level of the fundus/body junction. Proximal port just beyond the gastroesophageal junction. Limited view of the bowel gas is unremarkable. The visualized chest appears unremarkable except for granulomatous calcifications in the left pulmonary hilum Impression: Satisfactory nasogastric intubation
[2018-03-10 16:56] VITALS: BP 142/70
[2018-03-10] MEDS ORDERED: Levofloxacin 500mg tab ORAL SCH (17:00)
[2018-03-10] MEDS: Docusate 100mg/10ml Liq NG SCH (18:28)
[2018-03-10 20:00] VITALS: BP 128/72
[2018-03-10] MEDS: Latanoprost 0.005% Opth 2.5ml Soln BOTH EYES SCH (21:00)
[2018-03-10] MEDS: Haloperidol 1mg tab ORAL SCH (21:01)
--- NOTE | 2018-03-10 22:15 | Consultation ---
DATE OF CONSULTATION: 03/10/2018 INFECTIOUS DISEASE CONSULTATION CONSULTING PHYSICIAN: Liv Graham M.D. REQUESTING PHYSICIAN: Elmer Pang M.D. REASON FOR CONSULTATION: Sepsis, fever, leukocytosis with altered mental status, recommendation for antibiotics treatment. HISTORY OF PRESENT ILLNESS: The patient is a 67-year-old female with past medical history of dementia and diabetes, who was recently discharged from [facility] within 24 hours after she was transfused blood due to low hemoglobin, was brought into [facility] with altered mental status, respiratory distress and vomiting blood. The patient was originally from residential, had couple of episodes of nausea and vomiting with blood. As per the paramedics report, no cough or shortness of breath, but she sounded congested. The patient was admitted to the hospital with diagnosis of encephalopathy, UTI, dehydration and acute renal failure. She was started on hydration and Keppra to control seizure activities. The patient starts spiking fever up to 102 degrees. Her white count also was elevated. So, Infectious Disease consultation was requested for further evaluation and management of her fever, leukocytosis, possible sepsis, and UTI. As of now, the patient is a poor historian and cannot provide any history. History was mainly obtained from the medical record. REVIEW OF SYSTEMS: Unable to obtain. The patient is a poor historian, cannot provide any history. PAST MEDICAL HISTORY: Significant for dementia, diabetes, and anxiety disorder. PAST SURGICAL HISTORY: Not on record. MEDICATIONS: The patient currently on levofloxacin and ceftriaxone started by the primary physician. For the rest of her medications, please refer to MAR. ALLERGIES: She has no known drug allergy. FAMILY HISTORY: Unable to obtain. SOCIAL HISTORY: She is a residential patient. No recent drugs, tobacco, or alcohol. PHYSICAL EXAMINATION: GENERAL: A middle-aged female, cachectic, lying in bed with upper extremity tremor, awake, but not alert. Follows commands. VITAL SIGNS: Temperature 102.4 degrees, pulse 128, blood pressure 143/75, and O2 saturation 96% on 2 liters nasal cannula. HEENT: Normocephalic and atraumatic. Pupils are reactive to light. The patient was resisting opening her eyes. She had very dry oral mucosa, unable to assess. NG tube in her right naris. NECK: Supple. No lymphadenopathy. CARDIOVASCULAR: She was tachycardic. S1 and S2 normal. No murmurs. LUNGS: She had normal breathing efforts. Clear lungs. Diminished breathing sounds at the bases. No rhonchi. ABDOMEN: Soft, nontender, and nondistended. Normal bowel sounds. No hepatosplenomegaly. EXTREMITIES: No edema or cyanosis. LABORATORY AND DIAGNOSTIC DATA: Labs today showed white count of 10.2, hemoglobin of 10, and platelet count of 545. BUN of 35 and creatinine of 1, down from 1.4. Urinalysis showed +2 leukocyte esterase, 5 to 10 wbc's, and few bacteria. Microbiology, blood culture x2 is growing gram-positive cocci in clusters from aerobic bottle with identification and sensitivity pending. MRSA screening positive. Imaging, chest x-ray yesterday showed no acute process, but evidence of old granulomatous disease. Repeated chest x-ray today showed no acute cardiopulmonary process or pathology. NG-tube in place. ASSESSMENT AND RECOMMENDATION: 1. Sepsis with leukocytosis and fever, source unclear at this point. Blood culture is growing gram-positive cocci. We will start the patient on vancomycin and cefepime empiric coverage. Repeat chest x-ray to rule out aspiration pneumonia and we will send stool for C. difficile if she develops any diarrhea. We will monitor blood culture results, source unclear at this point. 2. Urinary tract infection. We will send urine culture and start cefepime empiric coverage. 3. Acute renal failure due to the above. Continue hydration. Avoid nephrotoxic medicine and monitor urine output. 4. Encephalopathic state, acute, unclear, metabolic versus toxic versus sepsis related. Recommend Neurology consult and brain image for further evaluation. Thank you for the consult. ID will continue to follow. Liv Graham M.D. DR: ENEDINA JOB#: [id number] CC:
[2018-03-10] MEDS: Vancomycin 500mg/D5W 110ml IVPB SCH ×2 (23:31)
[2018-03-11] VITALS (9 sets, daily range): BP systolic 113–141; BP diastolic 66–78
[2018-03-11] MEDS: Docusate 100mg/10ml Liq NG SCH ×2 (08:10→17:27)
[2018-03-11] MEDS: Benztropine 1mg tab ORAL SCH ×2 (08:11→17:28)
[2018-03-11] MEDS: Lyrica 75mg cap ORAL SCH (08:11)
[2018-03-11] MEDS ORDERED: Propofol 200mg/20ml IV ONE (09:30)
[2018-03-11] MEDS ORDERED: fentaNYL 100 mcg/2 mL IV ONE (09:30)
[2018-03-11 09:31] LABS: BASOPHILS % (AUTO) 0.5 % (0.0-2.0); HEMATOCRIT 30.7 % (37.0-47.0); HEMOGLOBIN 9.9 G/DL (12.0-16.0); LYMPHOCYTES % (AUTO) 20.5 % (20.0-45.0); MEAN CORPUSCULAR VOLUME 85 FL (80-99); MONOCYTES % (AUTO) 8.7 % (1.0-10.0); NEUTROPHILS % (AUTO) 70.3 % (45.0-75.0); PLATELET COUNT 502 K/UL (150-450); RED CELL DISTRIBUTION WIDTH 14.9 % (11.6-14.8); WHITE BLOOD COUNT 7.4 K/UL (4.8-10.8)
--- NOTE | 2018-03-11 09:31 | Pre-Procedure Note/Attestation ---
Pre-Procedure Note/Attestation Complete Prior to Procedure Planned Procedure: not applicable Procedure Narrative: egd Indications for Procedure Pre-Operative Diagnosis: anemia, GIB Attestation I attest that I discussed the nature of the procedure; its benefits; risks and complications; and alternatives (and the risks and benefits of such alternatives ), prior to the procedure, with the patient (or the patient's legal employment program representative). I attest that, if there was a reasonable possibility of needing a blood transfusion, the patient (or the patient's legal employment program representative) was given the [facility] standardized written summary, pursuant to the Luis Pasquale Blood Safety Act ([place] Health and Safety Code # 1645, as amended). I attest that I re-evaluated the patient just prior to the surgery and that there has been no change in the patient's H&P, except as documented below: VIRGINIA STAFFORD Mar 11, 2018 09:31
[2018-03-11 09:44] LABS: INR 1.1 (0.9-1.1)
[2018-03-11] MEDS ORDERED: NS 500ML IV ONE (09:50)
[2018-03-11] MEDS ORDERED: LR 1000ml 1,000 ML IVLG SCH (09:54)
--- NOTE | 2018-03-11 09:54 | Anethesia Preoperative Eval ---
Anesthesia Pre-op PMH/ROS General Date of Evaluation: Mar 11, 2018 Time of Evaluation: 09:40 Anesthesiologist: Devon ASA Score: ASA 4 Mallampati Score Class I : Soft palate, uvula, fauces, pillars visible Class II: Soft palate, uvula, fauces visible Class III: Soft palate, base of uvula visible Class IV: Only hard plate visible Mallampati Classification: Class III Surgeon: Jadyn Diagnosis: Anemia Surgical Procedure: EGD Anesthesia History: none Family History: no anesthesia problems Allergies: Coded Allergies: No Known Allergies (Unverified , 01/21/18) Medications: see eMAR Past Medical History Cardiovascular: Reports: HTN; Denies: CAD, MS, valve dz, arrhythmia, other Pulmonary: Denies: asthma, COPD, LOLY, other Gastrointestinal/Genitourinary: Reports: GERD, other - GI bleed; Denies: CRI, ESRD Neurologic/Psychiatric: Reports: dementia, CVA, other - [employer]?; Denies: depression/anxiety, TIA Endocrine: Reports: hypothyroidism HEENT: Denies: cataract (L), cataract (R), glaucoma, TUOLUMNE (L), TUOLUMNE (R), other Hematology/Immune: Reports: anemia; Denies: DVT, bleeding disorder, other Musculoskeletal/Integumentary: Reports: DJD; Denies: OA, RA, DDD, edema, other Other: other - malnourished PMH Narrative: as above PSxH Narrative: See H&P Anesthesia Pre-op Phys. Exam Physician Exam Last Vital Signs Date Time Temp Pulse Resp B/P (MAP) Pulse Ox O2 Delivery O2 Flow Rate FiO2 03/11/18 08:11 126 123/71 03/11/18 08:00 98.2 19 98 Nasal Cannula 2.0 98.2 Constitutional: NAD Neurologic: other - yunable to obtaine Cardiovascular: RRR Respiratory: CTA Gastrointestinal: S/NT/ND Airway Exam Mallampati Score: Class III MO: limited Neck: stiff ROM: limited Teeth: missing Dentures: no upper, no lower Anesthesia Pre-op A/P Labs Hematology Test 03/11/18 08:25 White Blood Count 7.4 K/UL (4.8-10.8) Red Blood Count 3.60 M/UL (4.20-5.40) L Hemoglobin 9.9 G/DL (12.0-16.0) L Hematocrit 30.7 % (37.0-47.0) L Mean Corpuscular Volume 85 FL (80-99) Mean Corpuscular Hemoglobin 27.5 PG (27.0-31.0) Mean Corpuscular Hemoglobin Concent 32.1 G/DL (32.0-36.0) Red Cell Distribution Width 14.9 % (11.6-14.8) H Platelet Count 502 K/UL (150-450) H Mean Platelet Volume 6.5 FL (6.5-10.1) Neutrophils (%) (Auto) 70.3 % (45.0-75.0) Lymphocytes (%) (Auto) 20.5 % (20.0-45.0) Monocytes (%) (Auto) 8.7 % (1.0-10.0) Eosinophils (%) (Auto) 0.0 % (0.0-3.0) Basophils (%) (Auto) 0.5 % (0.0-2.0) Reticulocyte Count Pending Coagulation Test 03/11/18 08:25 Prothrombin Time 11.6 SEC (9.30-11.50) H Prothromb Time International Ratio 1.1 (0.9-1.1) Activated Partial Thromboplast Time 27 SEC (23-33) Chemistry Test 03/11/18 08:25 Sodium Level Pending Potassium Level Pending Chloride Level Pending Carbon Dioxide Level Pending Blood Urea Nitrogen Pending Creatinine Pending Estimat Glomerular Filtration Rate Pending Glucose Level Pending Calcium Level Pending Iron Level Pending Unsaturated Iron Binding Pending Ferritin Pending Vitamin B12 Level Pending Folate Pending Thyroid Stimulating Hormone (TSH) Pending Free Thyroxine Pending Risk Assessment & Plan Assessment: ASA 4 Plan: JENNIFER SNELL M.D. Mar 11, 2018 09:54
[2018-03-11] MEDS ORDERED: fentaNYL 100 mcg/2 mL IV PRN (10:00)
[2018-03-11 10:15] LABS: % IRON SATURATION 29 % (15-50); IRON 65 ug/dL (50-175); TOTAL IRON BINDING CAPACITY 225 ug/dL (250-450)
--- NOTE | 2018-03-11 10:21 | Endoscopy Procedure Note ---
Endoscopy Procedure Note General Indication for Procedure: GIB Procedures Performed: EGD Operative Findings/Diagnosis: gastric ulcer Specimen: yes Pt Tolerated Procedure Well: Yes Estimated Blood Loss: none Anesthesia Anesthesiologist: sarbjit Anesthesia: MAC Inserted Devices Implant(s) used?: No GI Core Measures 50 yrs or older w/o bx or poly: Not Applicable 10yrs. F/U not recommended: Not Applicable VIRGINIA STAFFORD Mar 11, 2018 10:21
[2018-03-11 10:26] LABS: ANION GAP 6 mmol/L (5-15); BLOOD UREA NITROGEN 28 mg/dL (7-18); CALCIUM 9.2 MG/DL (8.5-10.1); CARBON DIOXIDE 27 MMOL/L (21-32); CHLORIDE 117 MMOL/L (98-107); FERRITIN 678 NG/ML (8-388); POTASSIUM 3.1 MMOL/L (3.5-5.1); SODIUM 150 MMOL/L (136-145)
--- NOTE | 2018-03-11 10:30 | Immediate Post-Op Evaluation ---
Immediate Post-Op Evalulation Immediate Post-Op Evalulation Procedure: EGD with Bx. Date of Evaluation: Mar 11, 2018 Time of Evaluation: 10:28 IV Fluids: 400 Blood Products: none Estimated Blood Loss: none Urinary Output: none Blood Pressure Systolic: 128 Blood Pressure Diastolic: 76 Pulse Rate: 92 Respiratory Rate: 20 O2 Sat by Pulse Oximetry: 99 Temperature (Fahrenheit): 97.5 Pain Score (1-10): 2 Nausea: No Vomiting: No Complications none Patient Status: reacts, patent, none Hydration Status: adequate JENNIFER WEINSTEIN M.D. Mar 11, 2018 10:30
--- NOTE | 2018-03-11 11:19 | 48 Hour Post Anesthesia Eval ---
Post Anesthesia Evaluation Procedure: EGD with Bx. Date of Evaluation: Mar 11, 2018 Time of Evaluation: 11:17 Blood Pressure Systolic: 128 0: 67 Pulse Rate: 94 Respiratory Rate: 20 Temperature (Fahrenheit): 97.4 O2 Sat by Pulse Oximetry: 98 Airway: patent Nausea: No Vomiting: No Pain Intensity: 1 Hydration Status: adequate Cardiopulmonary Status: stable Follow-up Care/Observations: n/a Post-Anesthesia Complications: none Follow-up care needed: ready to discharge JENNIFER WEINSTEIN M.D. Mar 11, 2018 11:19
[2018-03-11] MEDS: Vancomycin 500mg/D5W 110ml IVPB SCH ×2 (12:56)
--- NOTE | 2018-03-11 14:26 | Infectious Diseases Prog Note ---
Assessment/Plan Problems: (1) Sepsis Assessment & Plan: await blood culture , CXR ruled out new infiltrates , continue vancomycin with cefepime empiric coverage for now (2) UTI (urinary tract infection) Assessment & Plan: await urine culture and continue cefepime empirically (3) DL (acute kidney injury) Assessment & Plan: due to the above , continue hydration, avoid nephrotoxic meds, monitor UOP (4) Encephalopathy acute Assessment & Plan: metabolic VS toxic VS sepsis related , improving, recommend neurology consult Subjective ROS Limited/Unobtainable: Yes Allergies: Coded Allergies: No Known Allergies (Unverified , 01/21/18) Subjective patient is more awake and alert, she requested water or ice chips to nmoisten her mouth, no fever or chills, no cough or SOB, no nausea or vomiting , failed swallow eval Objective Vital Signs Last 24 Hour Vital Signs Date Time Temp Pulse Resp B/P (MAP) Pulse Ox O2 Delivery O2 Flow Rate FiO2 03/11/18 12:00 106 03/11/18 12:00 97.8 109 20 133/66 98 Nasal Cannula 2.0 97.8 03/11/18 11:19 207.3 94 20 98 03/11/18 10:35 97.4 107 25 135/71 99 Nasal Cannula 2.0 97.4 03/11/18 10:30 106 26 128/77 99 Nasal Cannula 2.0 03/11/18 10:30 207.5 92 20 99 03/11/18 10:24 97.6 108 24 122/74 99 Nasal Cannula 2.0 97.6 03/11/18 08:11 126 123/71 03/11/18 08:00 98.2 111 19 113/76 98 Nasal Cannula 2.0 98.2 03/11/18 08:00 108 03/11/18 04:00 96.3 106 18 123/71 97 Nasal Cannula 2.0 96.3 03/11/18 04:00 126 03/11/18 00:00 97.9 121 18 124/78 96 Nasal Cannula 2.0 97.9 03/11/18 00:00 96 03/10/18 20:00 110 03/10/18 20:00 98.1 109 18 128/72 99 Nasal Cannula 2.0 98.1 03/10/18 18:40 98.1 98.1 03/10/18 17:55 98.1 03/10/18 16:56 100.6 03/10/18 16:56 100.6 126 20 142/70 96 Nasal Cannula 2.0 100.6 03/10/18 15:18 127 Height (Feet): 5 Height (Inches): 8.00 Weight (Pounds): 119 General Appearance: WD/WN, no acute distress HEENT: normocephalic, atraumatic, anicteric, PERRL Respiratory/Chest: chest wall non-tender, lungs clear, normal breath sounds, no respiratory distress, no accessory muscle use Cardiovascular: normal peripheral pulses, normal rate, regular rhythm, no gallop/murmur, no JVD Abdomen: normal bowel sounds, soft, non tender, no organomegaly, non distended , no mass, no scars Extremities: no cyanosis, no clubbing Skin: no rash, no lesions, no ulcers Neurologic/Psychiatric: alert, responsive Lymphatic: no neck adenopathy, no groin adenopathy Microbiology Date/Time Source Procedure Growth Status 03/09/18 04:25 Blood Blood Culture - Preliminary Staphylococcus Sp Coag Neg Resulted 03/09/18 04:10 Blood Blood Culture - Preliminary NO GROWTH AFTER 24 HOURS Resulted 03/10/18 10:15 Sputum Induced Gram Stain - Final Resulted 03/10/18 10:15 Sputum Culture - Preliminary Gram Positive Cocci Resulted 03/09/18 04:45 Nasal Nares MRSA Culture - Final Staphylococcus Aureus - Mrsa Complete 03/10/18 10:00 Indwelling Cath Urine Culture - Preliminary NO GROWTH Resulted 03/09/18 04:45 Rectum VRE Culture - Final Enterococcus Faecium - Vre Complete Laboratory Tests Test 03/11/18 08:25 White Blood Count 7.4 K/UL (4.8-10.8) Red Blood Count 3.60 M/UL (4.20-5.40) L Hemoglobin 9.9 G/DL (12.0-16.0) L Hematocrit 30.7 % (37.0-47.0) L Mean Corpuscular Volume 85 FL (80-99) Mean Corpuscular Hemoglobin 27.5 PG (27.0-31.0) Mean Corpuscular Hemoglobin Concent 32.1 G/DL (32.0-36.0) Red Cell Distribution Width 14.9 % (11.6-14.8) H Platelet Count 502 K/UL (150-450) H Mean Platelet Volume 6.5 FL (6.5-10.1) Neutrophils (%) (Auto) 70.3 % (45.0-75.0) Lymphocytes (%) (Auto) 20.5 % (20.0-45.0) Monocytes (%) (Auto) 8.7 % (1.0-10.0) Eosinophils (%) (Auto) 0.0 % (0.0-3.0) Basophils (%) (Auto) 0.5 % (0.0-2.0) Reticulocyte Count 0.8 % (0.0-2.0) Prothrombin Time 11.6 SEC (9.30-11.50) H Prothromb Time International Ratio 1.1 (0.9-1.1) Activated Partial Thromboplast Time 27 SEC (23-33) Sodium Level 150 MMOL/L (136-145) H Potassium Level 3.1 MMOL/L (3.5-5.1) L Chloride Level 117 MMOL/L (98-107) H Carbon Dioxide Level 27 MMOL/L (21-32) Anion Gap 6 mmol/L (5-15) Blood Urea Nitrogen 28 mg/dL (7-18) H Creatinine 1.0 MG/DL (0.55-1.30) Estimat Glomerular Filtration Rate > 60 mL/min (>60) Glucose Level 123 MG/DL (74-106) H Calcium Level 9.2 MG/DL (8.5-10.1) Iron Level 65 ug/dL (50-175) Total Iron Binding Capacity 225 ug/dL (250-450) L Percent Iron Saturation 29 % (15-50) Unsaturated Iron Binding 160 ug/dL (112-346) Ferritin 678 NG/ML (8-388) H Vitamin B12 Level > 2000 PG/ML (193-986) H Folate 18.7 NG/ML (8.6-58.9) Thyroid Stimulating Hormone (TSH) 0.360 uiU/mL (0.358-3.740) Free Thyroxine 1.60 NG/DL (0.76-1.46) H Current Medications Medications (Trade) Dose Ordered Sig/Dae Route PRN Reason Start Time Stop Time Status Last Admin Dose Admin Acetaminophen (Tylenol) 650 mg Q6H PRN ORAL Mild Pain/Temp > 100.5 03/10/18 09:45 04/09/18 09:44 03/10/18 16:56 Acetaminophen/ Codeine Phosphate (Tylenol #3) 1 tab Q6H PRN ORAL Moderate Pain (Pain Scale 4-6) 03/09/18 10:45 03/16/18 10:44 03/10/18 04:24 Amlodipine Besylate (Norvasc) 5 mg DAILY ORAL 03/10/18 09:00 04/09/18 08:59 03/10/18 09:28 Benztropine Mesylate (Cogentin) 1 mg BID ORAL 03/09/18 18:00 04/08/18 17:59 03/10/18 16:55 Cefepime HCl 2 gm/ Dextrose 110 ml @ 220 mls/hr Q24H IVPB 03/10/18 14:00 03/17/18 13:59 03/10/18 14:59 Dextrose 1,000 ml @ 50 mls/hr Q20H IV 03/10/18 09:45 04/09/18 09:44 03/11/18 05:20 Docusate Sodium (Colace) 100 mg TWICE A DAY NG 03/10/18 18:00 04/09/18 17:59 03/10/18 18:28 Fentanyl Citrate (Sublimaze 100 mcg/2 mL) 25 mcg Q10M PRN IV Moderate Pain (Pain Scale 4-6) 03/11/18 10:00 03/11/18 16:00 Haloperidol (Haldol) 1 mg QHS ORAL 03/09/18 21:00 04/08/18 20:59 03/10/18 21:01 Lactated Ringer's 1,000 ml @ 10 mls/hr Q24H IVLG 03/11/18 09:54 03/11/18 16:00 Latanoprost (Xalatan) 1 drop BEDTIME BOTH EYES 03/09/18 21:00 04/08/18 20:59 03/10/18 21:00 Levetiracetam (Keppra) 750 mg Q12HR ORAL 03/09/18 21:00 04/08/18 20:59 03/10/18 21:01 Olanzapine (ZyPREXA) 5 mg BEDTIME ORAL 03/09/18 21:00 04/08/18 20:59 03/10/18 21:01 Ondansetron HCl (Zofran) 4 mg Q1H PRN IVP Nausea & Vomiting 03/11/18 10:00 03/11/18 16:00 Pantoprazole (Protonix) 40 mg DAILY ORAL 03/10/18 09:00 04/09/18 08:59 03/10/18 09:28 Pregabalin (Lyrica) 75 mg DAILY ORAL 03/10/18 09:00 04/09/18 08:59 03/10/18 09:28 Vancomycin HCl (Vanco rx to dose) 1 ea DAILY PRN MISC Per rx protocol 03/10/18 12:15 04/09/18 12:14 Vancomycin HCl 500 mg/Dextrose 110 ml @ 110 mls/hr Q12HR@0000,1200 IVPB 03/11/18 00:00 03/16/18 00:00 03/11/18 12:56 Liv Graham M.D. Mar 11, 2018 14:26
--- NOTE | 2018-03-11 15:07 | Pulmonology Progress Note ---
Assessment/Plan Assessment/Plan 1. Seizure disorder. 2. Recent gastrointestinal bleed. 3. Status post blood transfusion. 4. Anemia. 5. Urinary tract infection. 6. Chronic encephalopathy. 7. Sinus tachycardia. DISCUSSION: Continue Keppra 750 mg b.i.d. She is DNR/DNI. seen by ID. Status post endoscopy. Await recommendations regardin advancing diet versus PEG Subjective Interval Events: Status post endoscopy. No new events. More awake. Constitutional: Reports: no symptoms HEENT: Repors: no symptoms Respiratory: Reports: no symptoms Cardiovascular: Reports: no symptoms Gastrointestinal/Abdominal: Reports: no symptoms Genitourinary: Reports: no symptoms Allergies: Coded Allergies: No Known Allergies (Unverified , 01/21/18) Objective Last 24 Hour Vital Signs Date Time Temp Pulse Resp B/P (MAP) Pulse Ox O2 Delivery O2 Flow Rate FiO2 03/11/18 12:00 106 03/11/18 12:00 97.8 109 20 133/66 98 Nasal Cannula 2.0 97.8 03/11/18 11:19 207.3 94 20 98 03/11/18 10:35 97.4 107 25 135/71 99 Nasal Cannula 2.0 97.4 03/11/18 10:30 106 26 128/77 99 Nasal Cannula 2.0 03/11/18 10:30 207.5 92 20 99 03/11/18 10:24 97.6 108 24 122/74 99 Nasal Cannula 2.0 97.6 03/11/18 08:11 126 123/71 03/11/18 08:00 98.2 111 19 113/76 98 Nasal Cannula 2.0 98.2 03/11/18 08:00 108 03/11/18 04:00 96.3 106 18 123/71 97 Nasal Cannula 2.0 96.3 03/11/18 04:00 126 03/11/18 00:00 97.9 121 18 124/78 96 Nasal Cannula 2.0 97.9 03/11/18 00:00 96 03/10/18 20:00 110 03/10/18 20:00 98.1 109 18 128/72 99 Nasal Cannula 2.0 98.1 03/10/18 18:40 98.1 98.1 03/10/18 17:55 98.1 03/10/18 16:56 100.6 03/10/18 16:56 100.6 126 20 142/70 96 Nasal Cannula 2.0 100.6 03/10/18 15:18 127 Intake and Output 03/10/18 03/11/18 19:00 07:00 Intake Total 570 ml 350 ml Output Total 200 ml 500 ml Balance 370 ml -150 ml IV Total 570 ml 350 ml Output Urine Total 200 ml 500 ml General Appearance: no acute distress HEENT: normocephalic Respiratory/Chest: chest wall non-tender, lungs clear Cardiovascular: normal peripheral pulses, normal rate Abdomen: normal bowel sounds Microbiology Date/Time Source Procedure Growth Status 03/09/18 04:25 Blood Blood Culture - Preliminary Staphylococcus Sp Coag Neg Resulted 03/09/18 04:10 Blood Blood Culture - Preliminary NO GROWTH AFTER 24 HOURS Resulted 03/10/18 10:15 Sputum Induced Gram Stain - Final Resulted 03/10/18 10:15 Sputum Culture - Preliminary Gram Positive Cocci Resulted 03/09/18 04:45 Nasal Nares MRSA Culture - Final Staphylococcus Aureus - Mrsa Complete 03/10/18 10:00 Indwelling Cath Urine Culture - Preliminary NO GROWTH Resulted 03/09/18 04:45 Rectum VRE Culture - Final Enterococcus Faecium - Vre Complete Laboratory Tests 03/11/18 08:25: White Blood Count 7.4, Red Blood Count 3.60L, Hemoglobin 9.9L, Hematocrit 30.7L , Mean Corpuscular Volume 85, Mean Corpuscular Hemoglobin 27.5, Mean Corpuscular Hemoglobin Concent 32.1, Red Cell Distribution Width 14.9H, Platelet Count 502H, Mean Platelet Volume 6.5, Neutrophils (%) (Auto) 70.3, Lymphocytes (%) (Auto) 20.5, Monocytes (%) (Auto) 8.7, Eosinophils (%) (Auto) 0.0, Basophils (%) (Auto) 0.5, Reticulocyte Count 0.8, Prothrombin Time 11.6H, Prothromb Time International Ratio 1.1, Activated Partial Thromboplast Time 27, Sodium Level 150H, Potassium Level 3.1L, Chloride Level 117H, Carbon Dioxide Level 27, Anion Gap 6, Blood Urea Nitrogen 28H, Creatinine 1.0, Estimat Glomerular Filtration Rate > 60, Glucose Level 123H, Calcium Level 9.2, Iron Level 65, Total Iron Binding Capacity 225L, Percent Iron Saturation 29, Unsaturated Iron Binding 160, Ferritin 678H, Vitamin B12 Level > 2000H, Folate 18.7, Thyroid Stimulating Hormone (TSH) 0.360, Free Thyroxine 1.60H Current Medications Medications (Trade) Dose Ordered Sig/Dae Route PRN Reason Start Time Stop Time Status Last Admin Dose Admin Acetaminophen (Tylenol) 650 mg Q6H PRN ORAL Mild Pain/Temp > 100.5 03/10/18 09:45 04/09/18 09:44 03/10/18 16:56 Acetaminophen/ Codeine Phosphate (Tylenol #3) 1 tab Q6H PRN ORAL Moderate Pain (Pain Scale 4-6) 03/09/18 10:45 03/16/18 10:44 03/10/18 04:24 Amlodipine Besylate (Norvasc) 5 mg DAILY ORAL 03/10/18 09:00 04/09/18 08:59 03/10/18 09:28 Benztropine Mesylate (Cogentin) 1 mg BID ORAL 03/09/18 18:00 04/08/18 17:59 03/10/18 16:55 Cefepime HCl 2 gm/ Dextrose 110 ml @ 220 mls/hr Q24H IVPB 03/10/18 14:00 03/17/18 13:59 03/10/18 14:59 Dextrose 1,000 ml @ 50 mls/hr Q20H IV 03/10/18 09:45 04/09/18 09:44 03/11/18 05:20 Docusate Sodium (Colace) 100 mg TWICE A DAY NG 03/10/18 18:00 04/09/18 17:59 03/10/18 18:28 Fentanyl Citrate (Sublimaze 100 mcg/2 mL) 25 mcg Q10M PRN IV Moderate Pain (Pain Scale 4-6) 03/11/18 10:00 03/11/18 16:00 Haloperidol (Haldol) 1 mg QHS ORAL 03/09/18 21:00 04/08/18 20:59 03/10/18 21:01 Lactated Ringer's 1,000 ml @ 10 mls/hr Q24H IVLG 03/11/18 09:54 03/11/18 16:00 Latanoprost (Xalatan) 1 drop BEDTIME BOTH EYES 03/09/18 21:00 04/08/18 20:59 03/10/18 21:00 Levetiracetam (Keppra) 750 mg Q12HR ORAL 03/09/18 21:00 04/08/18 20:59 03/10/18 21:01 Olanzapine (ZyPREXA) 5 mg BEDTIME ORAL 03/09/18 21:00 04/08/18 20:59 03/10/18 21:01 Ondansetron HCl (Zofran) 4 mg Q1H PRN IVP Nausea & Vomiting 03/11/18 10:00 03/11/18 16:00 Pantoprazole (Protonix) 40 mg DAILY ORAL 03/10/18 09:00 04/09/18 08:59 03/10/18 09:28 Pregabalin (Lyrica) 75 mg DAILY ORAL 03/10/18 09:00 04/09/18 08:59 03/10/18 09:28 Vancomycin HCl (Vanco rx to dose) 1 ea DAILY PRN MISC Per rx protocol 03/10/18 12:15 04/09/18 12:14 Vancomycin HCl 500 mg/Dextrose 110 ml @ 110 mls/hr Q12HR@0000,1200 IVPB 03/11/18 00:00 03/16/18 00:00 03/11/18 12:56 Elmer Pang MD Mar 11, 2018 15:07
[2018-03-11] MEDS: Cefepime HCl 2 GM in D5W 110 ML IVPB SCH (15:09)
--- NOTE | 2018-03-11 16:15 | Procedure Note ---
DATE OF PROCEDURE: 03/11/2018 PROCEDURE: Upper endoscopy with biopsy. SURGEON: Naresh Salamanca M.D. ANESTHESIOLOGIST: Ino Osorio M.D. REFERRING PHYSICIAN: Elmer Pang M.D. INSTRUMENT: Olympus adult flexible upper endoscope. INDICATION: Gastrointestinal bleeding. The procedure, risks, benefits, and possible consequences, including hemorrhage, aspiration, perforation and infection, and alternative treatments, were explained to the patient/legal guardian by Dr. Naresh Salamanca and the patient/legal guardian understood and accepted these risks. DESCRIPTION OF PROCEDURE: After informed consent was obtained and the patient was adequately sedated, Olympus upper endoscope was advanced from mouth into the second portion of duodenum and retroflexion was performed in the stomach. The patient had evidence of atrophic gastritis. There were 2 shallow ulcerations in the prepyloric region and the posterior wall without any adherent clot or visible vessel. The rest of the examination grossly within normal limits. At this time, biopsy from the antrum was obtained to rule out H. pylori infection. At this time, the scope was retrieved and procedure was terminated. The patient tolerated the procedure very well without any complication. SUMMARY OF FINDINGS: 1. Two small shallow gastric ulcerations. 2. Gastritis, atrophic, status post biopsy. RECOMMENDATION: Follow up biopsy results and treat accordingly. I want to thank Dr. Pang for this kind referral. Naresh Salamanca M.D. DR: DESHAWN JOB#: [id number] CC: Elmer Pang M.D.; Fax#: [phone]
[2018-03-11] MEDS ORDERED: NovoLOG Insulin Flexpen SUBQ SCH (16:30)
[2018-03-11] MEDS: NovoLOG Insulin Flexpen SUBQ SCH (18:00)
--- NOTE | 2018-03-11 18:44 | Diagnostic Imaging Report ---
Indication: NG tube Technique: XRAY Abdomen 1v Comparison: 03/10/2018 Findings: NG tube courses below level of diaphragms, tip in the proximal stomach, side-port at the region of the GE junction. Slight advancement recommended for more optimal positioning. No acute osseous abnormality seen. No focal airspace consolidation. Impression: ET tube tip in the proximal stomach, side-port just past the region of the GE junction. Slight advancement is recommended for more optimal positioning.
[2018-03-11] MEDS: Haloperidol 1mg tab ORAL SCH (21:26)
[2018-03-11] MEDS: Latanoprost 0.005% Opth 2.5ml Soln BOTH EYES SCH (21:26)
[2018-03-12] VITALS: BP 128/77
[2018-03-12] MEDS: Vancomycin 500mg/D5W 110ml IVPB SCH ×4 (00:33→12:29)
[2018-03-12 04:00] VITALS: BP 130/70
[2018-03-12] MEDS: NovoLOG Insulin Flexpen SUBQ SCH ×4 (06:00→17:36)
[2018-03-12 07:20] LABS: BASOPHILS % (AUTO) 0.7 % (0.0-2.0); HEMATOCRIT 29.1 % (37.0-47.0); LYMPHOCYTES % (AUTO) 25.9 % (20.0-45.0); MEAN CORPUSCULAR VOLUME 85 FL (80-99); MONOCYTES % (AUTO) 9.5 % (1.0-10.0); NEUTROPHILS % (AUTO) 63.9 % (45.0-75.0); PLATELET COUNT 426 K/UL (150-450); RED BLOOD COUNT 3.44 M/UL (4.20-5.40); RED CELL DISTRIBUTION WIDTH 14.4 % (11.6-14.8); WHITE BLOOD COUNT 4.5 K/UL (4.8-10.8)
[2018-03-12 07:37] LABS: ANION GAP 10 mmol/L (5-15); BLOOD UREA NITROGEN 31 mg/dL (7-18); CALCIUM 9.1 MG/DL (8.5-10.1); CARBON DIOXIDE 23 MMOL/L (21-32); CHLORIDE 119 MMOL/L (98-107); CREATININE 0.9 MG/DL (0.55-1.30); POTASSIUM 3.3 MMOL/L (3.5-5.1); SODIUM 152 MMOL/L (136-145)
[2018-03-12 08:00] VITALS: BP 139/77
--- NOTE | 2018-03-12 08:21 | Pulmonology Progress Note ---
Assessment/Plan Assessment/Plan 1. Seizure disorder. 2. Recent gastrointestinal bleed. 3. Status post blood transfusion. 4. Anemia. 5. Urinary tract infection. 6. Chronic encephalopathy. 7. Sinus tachycardia. DISCUSSION: Continue Keppra 750 mg b.i.d. She is DNR/DNI. seen by ID. Has MRSA sputum.. colonized; CXR is clear. Status post endoscopy. I will dc NG Start pureed diet Continue hypotonic fluids Replace K DC planning to SNF Subjective Interval Events: Much more awake; responsive Constitutional: Reports: no symptoms HEENT: Repors: no symptoms Respiratory: Reports: no symptoms Cardiovascular: Reports: no symptoms Gastrointestinal/Abdominal: Reports: no symptoms Genitourinary: Reports: no symptoms Neurologic: Reports: no symptoms Allergies: Coded Allergies: No Known Allergies (Unverified , 01/21/18) Objective Last 24 Hour Vital Signs Date Time Temp Pulse Resp B/P (MAP) Pulse Ox O2 Delivery O2 Flow Rate FiO2 03/12/18 04:00 97.0 114 20 130/70 100 Nasal Cannula 2.0 97.0 03/12/18 04:00 107 03/12/18 00:00 97.0 95 20 128/77 99 Nasal Cannula 2.0 97.0 03/12/18 00:00 83 03/11/18 20:00 104 03/11/18 20:00 98.4 102 20 133/71 99 Nasal Cannula 2.0 98.4 03/11/18 16:00 128 03/11/18 16:00 99.7 117 21 141/68 99 Nasal Cannula 2.0 99.7 03/11/18 12:00 106 03/11/18 12:00 97.8 109 20 133/66 98 Nasal Cannula 2.0 97.8 03/11/18 11:19 207.3 94 20 98 03/11/18 10:35 97.4 107 25 135/71 99 Nasal Cannula 2.0 97.4 03/11/18 10:30 106 26 128/77 99 Nasal Cannula 2.0 03/11/18 10:30 207.5 92 20 99 03/11/18 10:24 97.6 108 24 122/74 99 Nasal Cannula 2.0 97.6 Intake and Output 03/11/18 03/12/18 19:00 07:00 Intake Total 1045 ml 140 ml Output Total 600 ml 300 ml Balance 445 ml -160 ml Intake Free Water 50 ml IV Total 1045 ml Tube Feeding 90 ml Output Urine Total 600 ml 300 ml Estimated Blood Loss 0 ml General Appearance: no acute distress HEENT: normocephalic Respiratory/Chest: chest wall non-tender, lungs clear Cardiovascular: normal peripheral pulses, normal rate Abdomen: normal bowel sounds, soft, non tender Microbiology Date/Time Source Procedure Growth Status 03/10/18 10:15 Sputum Induced Gram Stain - Final Resulted 03/10/18 10:15 Sputum Culture - Preliminary Staphylococcus Aureus - Mrsa Gram Negative Bacillus 2 Resulted 03/10/18 10:00 Indwelling Cath Urine Culture - Final NO GROWTH AFTER 48 HOURS Complete Laboratory Tests 03/11/18 08:25: White Blood Count 7.4, Red Blood Count 3.60L, Hemoglobin 9.9L, Hematocrit 30.7L , Mean Corpuscular Volume 85, Mean Corpuscular Hemoglobin 27.5, Mean Corpuscular Hemoglobin Concent 32.1, Red Cell Distribution Width 14.9H, Platelet Count 502H, Mean Platelet Volume 6.5, Neutrophils (%) (Auto) 70.3, Lymphocytes (%) (Auto) 20.5, Monocytes (%) (Auto) 8.7, Eosinophils (%) (Auto) 0.0, Basophils (%) (Auto) 0.5, Reticulocyte Count 0.8, Prothrombin Time 11.6H, Prothromb Time International Ratio 1.1, Activated Partial Thromboplast Time 27, Sodium Level 150H, Potassium Level 3.1L, Chloride Level 117H, Carbon Dioxide Level 27, Anion Gap 6, Blood Urea Nitrogen 28H, Creatinine 1.0, Estimat Glomerular Filtration Rate > 60, Glucose Level 123H, Hemoglobin A1c 5.6, Calcium Level 9.2, Iron Level 65, Total Iron Binding Capacity 225L, Percent Iron Saturation 29, Unsaturated Iron Binding 160, Ferritin 678H, Vitamin B12 Level > 2000H, Folate 18.7, Thyroid Stimulating Hormone (TSH) 0.360, Free Thyroxine 1.60H 03/12/18 00:15: Vancomycin Level Trough 14.2H 03/12/18 05:50: White Blood Count [Pending], Red Blood Count [Pending], Hemoglobin [Pending], Hematocrit [Pending], Mean Corpuscular Volume [Pending], Mean Corpuscular Hemoglobin [Pending], Mean Corpuscular Hemoglobin Concent [Pending], Red Cell Distribution Width [Pending], Platelet Count [Pending], Mean Platelet Volume [ Pending], Neutrophils (%) (Auto) [Pending], Lymphocytes (%) (Auto) [Pending], Monocytes (%) (Auto) [Pending], Eosinophils (%) (Auto) [Pending], Basophils (%) (Auto) [Pending], Sodium Level 152H, Potassium Level 3.3L, Chloride Level 119H, Carbon Dioxide Level 23, Anion Gap 10, Blood Urea Nitrogen 31H, Creatinine 0.9, Estimat Glomerular Filtration Rate > 60, Glucose Level 119H, Calcium Level 9.1 Current Medications Medications (Trade) Dose Ordered Sig/Dae Route PRN Reason Start Time Stop Time Status Last Admin Dose Admin Acetaminophen (Tylenol) 650 mg Q6H PRN ORAL Mild Pain/Temp > 100.5 03/10/18 09:45 04/09/18 09:44 03/10/18 16:56 Acetaminophen/ Codeine Phosphate (Tylenol #3) 1 tab Q6H PRN ORAL Moderate Pain (Pain Scale 4-6) 03/09/18 10:45 03/16/18 10:44 03/10/18 04:24 Amlodipine Besylate (Norvasc) 5 mg DAILY ORAL 03/10/18 09:00 04/09/18 08:59 03/10/18 09:28 Benztropine Mesylate (Cogentin) 1 mg BID ORAL 03/09/18 18:00 04/08/18 17:59 03/11/18 17:28 Cefepime HCl 2 gm/ Dextrose 110 ml @ 220 mls/hr Q24H IVPB 03/10/18 14:00 03/17/18 13:59 03/11/18 15:09 Dextrose (Dextrose 50%) 25 ml STAT PRN IV Hypoglycemia 03/11/18 16:15 04/10/18 16:14 Dextrose (Dextrose 50%) 50 ml STAT PRN IV Hypoglycemia 03/11/18 16:15 04/10/18 16:14 Docusate Sodium (Colace) 100 mg TWICE A DAY NG 03/10/18 18:00 04/09/18 17:59 03/11/18 17:27 Haloperidol (Haldol) 1 mg QHS ORAL 03/09/18 21:00 04/08/18 20:59 03/11/18 21:26 Insulin Aspart (NovoLOG) Q6HR SUBQ 03/11/18 18:00 04/10/18 17:59 Latanoprost (Xalatan) 1 drop BEDTIME BOTH EYES 03/09/18 21:00 04/08/18 20:59 03/11/18 21:26 Levetiracetam (Keppra) 750 mg Q12HR ORAL 03/09/18 21:00 04/08/18 20:59 03/11/18 21:26 Olanzapine (ZyPREXA) 5 mg BEDTIME ORAL 03/09/18 21:00 04/08/18 20:59 03/11/18 21:26 Pantoprazole (Protonix) 40 mg DAILY ORAL 03/10/18 09:00 04/09/18 08:59 03/10/18 09:28 Pregabalin (Lyrica) 75 mg DAILY ORAL 03/10/18 09:00 04/09/18 08:59 03/10/18 09:28 Vancomycin HCl (Vanco rx to dose) 1 ea DAILY PRN MISC Per rx protocol 03/10/18 12:15 04/09/18 12:14 Vancomycin HCl 500 mg/Dextrose 110 ml @ 110 mls/hr Q12HR@0000,1200 IVPB 03/11/18 00:00 03/16/18 00:00 03/12/18 00:33 Elmer Pang MD Mar 12, 2018 08:21
[2018-03-12] MEDS: Benztropine 1mg tab ORAL SCH ×2 (08:57→17:31)
[2018-03-12] MEDS: Lyrica 75mg cap ORAL SCH (08:58)
[2018-03-12] MEDS: Docusate 100mg cap ORAL SCH ×2 (08:58→17:31)
[2018-03-12] MEDS: D5W w/KCl 20mEq 1,000 ML IV SCH (09:00)
--- NOTE | 2018-03-12 10:25 | Diagnostic Imaging Report ---
Indication: Nasogastric tube placement Technique: XRAY Abdomen 1v Comparison: None Findings: Limited abdomen demonstrates nasogastric tube within the stomach. Impression: Nasogastric tube placement within the stomach.
--- NOTE | 2018-03-12 10:45 | General Progress Note ---
Assessment/Plan Assessment/Plan Assessment - UGIB - Gastric ulcer - gastritis - OBS - Anemia Recommendation - PPI - NGT feeds - Elevated HOB - Monitor CBC Subjective Allergies: Coded Allergies: No Known Allergies (Unverified , 01/21/18) Subjective above noted confused tolerating NGT feeds Glucerna at 30 Objective Last 24 Hour Vital Signs Date Time Temp Pulse Resp B/P (MAP) Pulse Ox O2 Delivery O2 Flow Rate FiO2 03/12/18 08:59 107 139/77 03/12/18 07:31 99 Nasal Cannula 2.0 28 03/12/18 07:31 Nasal Cannula 2.0 28 03/12/18 04:00 97.0 114 20 130/70 100 Nasal Cannula 2.0 97.0 03/12/18 04:00 107 03/12/18 00:00 97.0 95 20 128/77 99 Nasal Cannula 2.0 97.0 03/12/18 00:00 83 03/11/18 20:00 104 03/11/18 20:00 98.4 102 20 133/71 99 Nasal Cannula 2.0 98.4 03/11/18 16:00 128 03/11/18 16:00 99.7 117 21 141/68 99 Nasal Cannula 2.0 99.7 03/11/18 12:00 106 03/11/18 12:00 97.8 109 20 133/66 98 Nasal Cannula 2.0 97.8 03/11/18 11:19 207.3 94 20 98 Intake and Output 03/11/18 03/12/18 19:00 07:00 Intake Total 1045 ml 140 ml Output Total 600 ml 300 ml Balance 445 ml -160 ml Intake Free Water 50 ml IV Total 1045 ml Tube Feeding 90 ml Output Urine Total 600 ml 300 ml Estimated Blood Loss 0 ml Laboratory Tests 03/12/18 00:15: Vancomycin Level Trough 14.2H 03/12/18 05:50: White Blood Count 4.5L, Red Blood Count 3.44L, Hemoglobin 10.0L, Hematocrit 29.1L, Mean Corpuscular Volume 85, Mean Corpuscular Hemoglobin 29.0, Mean Corpuscular Hemoglobin Concent 34.4, Red Cell Distribution Width 14.4, Platelet Count 426, Mean Platelet Volume 6.4L, Neutrophils (%) (Auto) 63.9, Lymphocytes ( %) (Auto) 25.9, Monocytes (%) (Auto) 9.5, Eosinophils (%) (Auto) 0.0, Basophils (%) (Auto) 0.7, Sodium Level 152H, Potassium Level 3.3L, Chloride Level 119H, Carbon Dioxide Level 23, Anion Gap 10, Blood Urea Nitrogen 31H, Creatinine 0.9, Estimat Glomerular Filtration Rate > 60, Glucose Level 119H, Calcium Level 9.1 Height (Feet): 5 Height (Inches): 8.00 Weight (Pounds): 119 Objective Thin AA woman NCAT supple CTA RRR abd soft flat no edema OBS JOSE RAMON BECERRA Mar 12, 2018 10:45
[2018-03-12 12:00] VITALS: BP 141/82
[2018-03-12] MEDS: Cefepime HCl 2 GM in D5W 110 ML IVPB SCH (13:41)
[2018-03-12] MEDS: Tylenol #3 tab (300mg/30mg) ORAL PRN (13:42)
[2018-03-12] MEDS ORDERED: NS 275ml ONE (15:48)
[2018-03-12] MEDS ORDERED: Tubing IV Secondary IV ONE (15:48)
[2018-03-12 16:00] VITALS: BP 119/77
[2018-03-12 20:00] VITALS: BP 145/78
[2018-03-12] MEDS: Latanoprost 0.005% Opth 2.5ml Soln BOTH EYES SCH (20:24)
--- NOTE | 2018-03-12 21:55 | Infectious Diseases Prog Note ---
Assessment/Plan Problems: (1) HCAP (healthcare-associated pneumonia) Assessment & Plan: due to MRSA, and gram negative rods, already on vancomycin and cefepime, pending identification , will repeat CXR in am (2) Sepsis Assessment & Plan: await blood culture , CXR ruled out new infiltrates , continue vancomycin with cefepime empiric coverage for now (3) UTI (urinary tract infection) Assessment & Plan: await urine culture and continue cefepime empirically (4) DL (acute kidney injury) Assessment & Plan: due to the above , continue hydration, avoid nephrotoxic meds, monitor UOP (5) Encephalopathy acute Assessment & Plan: metabolic VS toxic VS sepsis related , improving, recommend neurology consult Subjective ROS Limited/Unobtainable: Yes Allergies: Coded Allergies: No Known Allergies (Unverified , 01/21/18) Subjective patient is more awake and alert, had low grade fever , no chills, no cough or SOB, no nausea or vomiting , failed swallow eval Objective Vital Signs Last 24 Hour Vital Signs Date Time Temp Pulse Resp B/P (MAP) Pulse Ox O2 Delivery O2 Flow Rate FiO2 03/12/18 20:00 98.2 109 20 145/78 98 Nasal Cannula 2.0 98.2 03/12/18 16:00 106 03/12/18 16:00 97.7 106 20 119/77 98 Nasal Cannula 2.0 97.7 03/12/18 12:00 98.1 104 20 141/82 99 Nasal Cannula 2.0 98.1 03/12/18 12:00 84 03/12/18 08:59 107 139/77 03/12/18 08:00 106 03/12/18 08:00 100.0 107 20 139/77 100 Nasal Cannula 2.0 100.0 03/12/18 07:31 99 Nasal Cannula 2.0 28 03/12/18 07:31 Nasal Cannula 2.0 28 03/12/18 04:00 97.0 114 20 130/70 100 Nasal Cannula 2.0 97.0 03/12/18 04:00 107 03/12/18 00:00 97.0 95 20 128/77 99 Nasal Cannula 2.0 97.0 03/12/18 00:00 83 Height (Feet): 5 Height (Inches): 8.00 Weight (Pounds): 119 General Appearance: WD/WN, no acute distress HEENT: normocephalic, atraumatic, anicteric, mucous membranes moist Respiratory/Chest: chest wall non-tender, normal breath sounds, no respiratory distress, no accessory muscle use, decreased breath sounds Cardiovascular: normal peripheral pulses, normal rate, regular rhythm, no gallop/murmur, no JVD Abdomen: normal bowel sounds, soft, non tender, no organomegaly, non distended , no mass, no scars Genitourinary: normal external genitalia Extremities: no cyanosis, no clubbing Skin: no rash, no lesions, no ulcers Neurologic/Psychiatric: alert, responsive Microbiology Date/Time Source Procedure Growth Status 03/10/18 10:10 Blood Blood Culture - Preliminary NO GROWTH AFTER 24 HOURS Resulted 03/10/18 09:58 Blood Blood Culture - Preliminary NO GROWTH AFTER 24 HOURS Resulted 03/10/18 10:15 Sputum Induced Gram Stain - Final Resulted 03/10/18 10:15 Sputum Culture - Preliminary Staphylococcus Aureus - Mrsa Gram Negative Bacillus 2 Resulted 03/10/18 10:00 Indwelling Cath Urine Culture - Final NO GROWTH AFTER 48 HOURS Complete Laboratory Tests Test 03/12/18 00:15 03/12/18 05:50 Vancomycin Level Trough 14.2 ug/mL (5.0-12.0) H White Blood Count 4.5 K/UL (4.8-10.8) L Red Blood Count 3.44 M/UL (4.20-5.40) L Hemoglobin 10.0 G/DL (12.0-16.0) L Hematocrit 29.1 % (37.0-47.0) L Mean Corpuscular Volume 85 FL (80-99) Mean Corpuscular Hemoglobin 29.0 PG (27.0-31.0) Mean Corpuscular Hemoglobin Concent 34.4 G/DL (32.0-36.0) Red Cell Distribution Width 14.4 % (11.6-14.8) Platelet Count 426 K/UL (150-450) Mean Platelet Volume 6.4 FL (6.5-10.1) L Neutrophils (%) (Auto) 63.9 % (45.0-75.0) Lymphocytes (%) (Auto) 25.9 % (20.0-45.0) Monocytes (%) (Auto) 9.5 % (1.0-10.0) Eosinophils (%) (Auto) 0.0 % (0.0-3.0) Basophils (%) (Auto) 0.7 % (0.0-2.0) Sodium Level 152 MMOL/L (136-145) H Potassium Level 3.3 MMOL/L (3.5-5.1) L Chloride Level 119 MMOL/L (98-107) H Carbon Dioxide Level 23 MMOL/L (21-32) Anion Gap 10 mmol/L (5-15) Blood Urea Nitrogen 31 mg/dL (7-18) H Creatinine 0.9 MG/DL (0.55-1.30) Estimat Glomerular Filtration Rate > 60 mL/min (>60) Glucose Level 119 MG/DL (74-106) H Calcium Level 9.1 MG/DL (8.5-10.1) Current Medications Medications (Trade) Dose Ordered Sig/Dae Route PRN Reason Start Time Stop Time Status Last Admin Dose Admin Acetaminophen (Tylenol) 650 mg Q6H PRN ORAL Mild Pain/Temp > 100.5 03/10/18 09:45 04/09/18 09:44 03/10/18 16:56 Acetaminophen/ Codeine Phosphate (Tylenol #3) 1 tab Q6H PRN ORAL Moderate Pain (Pain Scale 4-6) 03/09/18 10:45 03/16/18 10:44 03/12/18 13:42 Amlodipine Besylate (Norvasc) 5 mg DAILY ORAL 03/10/18 09:00 04/09/18 08:59 03/12/18 08:59 Benztropine Mesylate (Cogentin) 2 mg BID ORAL 03/12/18 09:00 04/08/18 17:59 03/12/18 17:31 Cefepime HCl 2 gm/ Dextrose 110 ml @ 220 mls/hr Q24H IVPB 03/10/18 14:00 03/17/18 13:59 03/12/18 13:41 Dextrose (Dextrose 50%) 25 ml STAT PRN IV Hypoglycemia 03/11/18 16:15 04/10/18 16:14 Dextrose (Dextrose 50%) 50 ml STAT PRN IV Hypoglycemia 03/11/18 16:15 04/10/18 16:14 Dextrose/ Electrolytes 1,000 ml @ 50 mls/hr Q20H IV 03/12/18 09:00 04/11/18 08:59 03/12/18 09:00 Docusate Sodium (Colace) 100 mg TWICE A DAY ORAL 03/12/18 09:00 04/09/18 17:59 03/12/18 17:31 Insulin Aspart (NovoLOG) Q6HR SUBQ 03/11/18 18:00 04/10/18 17:59 03/12/18 17:36 Latanoprost (Xalatan) 1 drop BEDTIME BOTH EYES 03/09/18 21:00 04/08/18 20:59 03/12/18 20:24 Levetiracetam (Keppra) 750 mg Q12HR ORAL 03/09/18 21:00 04/08/18 20:59 03/12/18 20:24 Olanzapine (ZyPREXA) 5 mg BEDTIME ORAL 03/09/18 21:00 04/08/18 20:59 03/12/18 20:24 Pantoprazole (Protonix) 40 mg DAILY ORAL 03/10/18 09:00 04/09/18 08:59 03/12/18 08:58 Pregabalin (Lyrica) 75 mg DAILY ORAL 03/10/18 09:00 04/09/18 08:59 03/12/18 08:58 Vancomycin HCl (Vanco rx to dose) 1 ea DAILY PRN MISC Per rx protocol 03/10/18 12:15 04/09/18 12:14 Vancomycin HCl 500 mg/Dextrose 110 ml @ 110 mls/hr Q12HR@0000,1200 IVPB 03/11/18 00:00 03/16/18 00:00 03/12/18 12:29 Liv Graham M.D. Mar 12, 2018 21:55
[2018-03-13] VITALS: BP 130/78
[2018-03-13] MEDS: Vancomycin 500mg/D5W 110ml IVPB SCH ×2 (00:19)
[2018-03-13 04:00] VITALS: BP 116/64
[2018-03-13] MEDS: D5W w/KCl 20mEq 1,000 ML IV SCH (05:30)
[2018-03-13] MEDS: NovoLOG Insulin Flexpen SUBQ SCH ×4 (06:00→17:29)
[2018-03-13 08:00] VITALS: BP 146/72
[2018-03-13 08:55] LABS: BASOPHILS % (AUTO) 0.7 % (0.0-2.0); HEMATOCRIT 33.2 % (37.0-47.0); LYMPHOCYTES % (AUTO) 21.4 % (20.0-45.0); MEAN CORPUSCULAR VOLUME 85 FL (80-99); MONOCYTES % (AUTO) 7.7 % (1.0-10.0); NEUTROPHILS % (AUTO) 70.2 % (45.0-75.0); PLATELET COUNT 468 K/UL (150-450); RED BLOOD COUNT 3.91 M/UL (4.20-5.40); RED CELL DISTRIBUTION WIDTH 14.1 % (11.6-14.8); WHITE BLOOD COUNT 5.3 K/UL (4.8-10.8)
--- NOTE | 2018-03-13 09:08 | Pulmonology Progress Note ---
Assessment/Plan Assessment/Plan 1. Seizure disorder. 2. Recent gastrointestinal bleed. 3. Status post blood transfusion. 4. Anemia. 5. Urinary tract infection. None seen on culture. 6. Chronic encephalopathy. 7. Sinus tachycardia. 8. MRSA nares DISCUSSION: Continue Keppra 750 mg b.i.d. She is DNR/DNI. seen by ID. Has MRSA sputum.. colonized; CXR is clear. Status post endoscopy. Tolerating pureed diet Await AM labs Likely dc to SNF today Will dc abx; urine culture negative; no fever or WBC CXR clear; sputum is colonized Bactroban for nares Subjective Interval Events: Feeling better; awake and attempting to speak; Constitutional: Reports: other - Has tremor RUE and has EPS HEENT: Repors: no symptoms Respiratory: Reports: no symptoms Cardiovascular: Reports: no symptoms Gastrointestinal/Abdominal: Reports: no symptoms Genitourinary: Reports: no symptoms Neurologic: Reports: no symptoms Allergies: Coded Allergies: No Known Allergies (Unverified , 01/21/18) Objective Last 24 Hour Vital Signs Date Time Temp Pulse Resp B/P (MAP) Pulse Ox O2 Delivery O2 Flow Rate FiO2 03/13/18 04:00 97.7 73 20 116/64 100 Room Air 97.7 03/13/18 04:00 74 03/13/18 00:00 97.2 87 20 130/78 98 Room Air 97.2 03/13/18 00:00 94 03/12/18 20:00 96 03/12/18 20:00 98.2 109 20 145/78 98 Nasal Cannula 2.0 98.2 03/12/18 19:30 98 Nasal Cannula 2.0 28 03/12/18 19:30 Nasal Cannula 2.0 28 03/12/18 16:00 106 03/12/18 16:00 97.7 106 20 119/77 98 Nasal Cannula 2.0 97.7 03/12/18 12:00 98.1 104 20 141/82 99 Nasal Cannula 2.0 98.1 03/12/18 12:00 84 Intake and Output 03/12/18 03/13/18 19:00 07:00 Intake Total 240 ml Output Total 500 ml 200 ml Balance -260 ml -200 ml Intake Oral 240 ml Output Urine Total 500 ml 200 ml General Appearance: no acute distress HEENT: normocephalic Respiratory/Chest: chest wall non-tender, lungs clear Cardiovascular: normal peripheral pulses, normal rate Abdomen: normal bowel sounds, soft, non tender Microbiology Date/Time Source Procedure Growth Status 03/10/18 10:10 Blood Blood Culture - Preliminary NO GROWTH AFTER 48 HOURS Resulted 03/10/18 09:58 Blood Blood Culture - Preliminary NO GROWTH AFTER 48 HOURS Resulted 03/10/18 10:15 Sputum Induced Gram Stain - Final Resulted 03/10/18 10:15 Sputum Culture - Preliminary Staphylococcus Aureus - Mrsa Gram Negative Bacillus 2 Resulted 03/10/18 10:00 Indwelling Cath Urine Culture - Final NO GROWTH AFTER 48 HOURS Complete Laboratory Tests 03/13/18 08:18: White Blood Count 5.3, Red Blood Count 3.91L, Hemoglobin 11.0L, Hematocrit 33.2L , Mean Corpuscular Volume 85, Mean Corpuscular Hemoglobin 28.1, Mean Corpuscular Hemoglobin Concent 33.1, Red Cell Distribution Width 14.1, Platelet Count 468H, Mean Platelet Volume 6.5, Neutrophils (%) (Auto) 70.2, Lymphocytes ( %) (Auto) 21.4, Monocytes (%) (Auto) 7.7, Eosinophils (%) (Auto) 0.0, Basophils (%) (Auto) 0.7, Sodium Level [Pending], Potassium Level [Pending], Chloride Level [Pending], Carbon Dioxide Level [Pending], Blood Urea Nitrogen [Pending], Creatinine [Pending], Estimat Glomerular Filtration Rate [Pending], Glucose Level [Pending], Calcium Level [Pending] Current Medications Medications (Trade) Dose Ordered Sig/Dae Route PRN Reason Start Time Stop Time Status Last Admin Dose Admin Acetaminophen (Tylenol) 650 mg Q6H PRN ORAL Mild Pain/Temp > 100.5 03/10/18 09:45 04/09/18 09:44 03/10/18 16:56 Acetaminophen/ Codeine Phosphate (Tylenol #3) 1 tab Q6H PRN ORAL Moderate Pain (Pain Scale 4-6) 03/09/18 10:45 03/16/18 10:44 03/12/18 13:42 Amlodipine Besylate (Norvasc) 5 mg DAILY ORAL 03/10/18 09:00 04/09/18 08:59 03/12/18 08:59 Benztropine Mesylate (Cogentin) 2 mg BID ORAL 03/12/18 09:00 04/08/18 17:59 03/12/18 17:31 Cefepime HCl 2 gm/ Dextrose 110 ml @ 220 mls/hr Q24H IVPB 03/10/18 14:00 03/17/18 13:59 03/12/18 13:41 Dextrose (Dextrose 50%) 25 ml STAT PRN IV Hypoglycemia 03/11/18 16:15 04/10/18 16:14 Dextrose (Dextrose 50%) 50 ml STAT PRN IV Hypoglycemia 03/11/18 16:15 04/10/18 16:14 Dextrose/ Electrolytes 1,000 ml @ 50 mls/hr Q20H IV 03/12/18 09:00 04/11/18 08:59 03/13/18 05:30 Docusate Sodium (Colace) 100 mg TWICE A DAY ORAL 03/12/18 09:00 04/09/18 17:59 03/12/18 17:31 Insulin Aspart (NovoLOG) Q6HR SUBQ 03/11/18 18:00 04/10/18 17:59 03/12/18 17:36 Latanoprost (Xalatan) 1 drop BEDTIME BOTH EYES 03/09/18 21:00 04/08/18 20:59 03/12/18 20:24 Levetiracetam (Keppra) 750 mg Q12HR ORAL 03/09/18 21:00 04/08/18 20:59 03/12/18 20:24 Olanzapine (ZyPREXA) 5 mg BEDTIME ORAL 03/09/18 21:00 04/08/18 20:59 03/12/18 20:24 Pantoprazole (Protonix) 40 mg DAILY ORAL 03/10/18 09:00 04/09/18 08:59 03/12/18 08:58 Pregabalin (Lyrica) 75 mg DAILY ORAL 03/10/18 09:00 04/09/18 08:59 03/12/18 08:58 Vancomycin HCl (Vanco rx to dose) 1 ea DAILY PRN MISC Per rx protocol 03/10/18 12:15 04/09/18 12:14 Vancomycin HCl 500 mg/Dextrose 110 ml @ 110 mls/hr Q12HR@0000,1200 IVPB 03/11/18 00:00 03/16/18 00:00 03/13/18 00:19 Elmer Pang MD Mar 13, 2018 09:08
[2018-03-13] MEDS ORDERED: BACTROBAN NASAL1 GM NASAL (09:09)
[2018-03-13] MEDS: Docusate 100mg cap ORAL SCH ×2 (09:16→17:34)
[2018-03-13] MEDS: Benztropine 1mg tab ORAL SCH ×2 (09:16→17:34)
[2018-03-13] MEDS: Lyrica 75mg cap ORAL SCH (09:17)
--- NOTE | 2018-03-13 09:40 | Diagnostic Imaging Report ---
Indication: Cough Technique: XRAY Chest 1v Comparison: 03/10/2018 Findings: Nasogastric tube is no longer seen. The heart and lungs are stable without new infiltrates. Impression: Interval removal of nasogastric tube. Otherwise stable chest.
[2018-03-13 09:44] LABS: ANION GAP 11 mmol/L (5-15); BLOOD UREA NITROGEN 24 mg/dL (7-18); CALCIUM 9.5 MG/DL (8.5-10.1); CARBON DIOXIDE 24 MMOL/L (21-32); CHLORIDE 115 MMOL/L (98-107); CREATININE 0.9 MG/DL (0.55-1.30); POTASSIUM 3.3 MMOL/L (3.5-5.1); SODIUM 150 MMOL/L (136-145)
[2018-03-13 12:00] VITALS: BP 137/78
--- NOTE | 2018-03-13 13:08 | General Progress Note ---
Assessment/Plan Assessment/Plan Assessment - UGIB - Gastric ulcer - gastritis - OBS - Anemia Recommendation - PPI - cautious PO intake given swallow result - may need PEG - Elevated HOB - Monitor CBC Subjective Allergies: Coded Allergies: No Known Allergies (Unverified , 01/21/18) Subjective above noted confused NGT out Objective Last 24 Hour Vital Signs Date Time Temp Pulse Resp B/P (MAP) Pulse Ox O2 Delivery O2 Flow Rate FiO2 03/13/18 09:16 74 116/64 03/13/18 08:00 116 03/13/18 08:00 97.0 113 20 146/72 97 Room Air 97.0 03/13/18 04:00 97.7 73 20 116/64 100 Room Air 97.7 03/13/18 04:00 74 03/13/18 00:00 97.2 87 20 130/78 98 Room Air 97.2 03/13/18 00:00 94 03/12/18 20:00 96 03/12/18 20:00 98.2 109 20 145/78 98 Nasal Cannula 2.0 98.2 03/12/18 19:30 98 Nasal Cannula 2.0 28 03/12/18 19:30 Nasal Cannula 2.0 28 03/12/18 16:00 106 03/12/18 16:00 97.7 106 20 119/77 98 Nasal Cannula 2.0 97.7 Intake and Output 03/12/18 03/13/18 19:00 07:00 Intake Total 240 ml Output Total 500 ml 200 ml Balance -260 ml -200 ml Intake Oral 240 ml Output Urine Total 500 ml 200 ml Laboratory Tests 03/13/18 08:18: White Blood Count 5.3, Red Blood Count 3.91L, Hemoglobin 11.0L, Hematocrit 33.2L , Mean Corpuscular Volume 85, Mean Corpuscular Hemoglobin 28.1, Mean Corpuscular Hemoglobin Concent 33.1, Red Cell Distribution Width 14.1, Platelet Count 468H, Mean Platelet Volume 6.5, Neutrophils (%) (Auto) 70.2, Lymphocytes ( %) (Auto) 21.4, Monocytes (%) (Auto) 7.7, Eosinophils (%) (Auto) 0.0, Basophils (%) (Auto) 0.7, Sodium Level 150H, Potassium Level 3.3L, Chloride Level 115H, Carbon Dioxide Level 24, Anion Gap 11, Blood Urea Nitrogen 24H, Creatinine 0.9, Estimat Glomerular Filtration Rate > 60, Glucose Level 148H, Calcium Level 9.5 Height (Feet): 5 Height (Inches): 8.00 Weight (Pounds): 119 Objective Thin AA woman NCAT supple CTA RRR abd soft flat no edema OBS JOSE RAMON BECERRA Mar 13, 2018 13:08
--- NOTE | 2018-03-13 13:31 | Infectious Diseases Prog Note ---
Assessment/Plan Problems: (1) HCAP (healthcare-associated pneumonia) Assessment & Plan: due to MRSA, and gram negative rods, suspect aspiration ? already on vancomycin and cefepime, pending identification , monitor CXR , (2) Sepsis Assessment & Plan: blood culture grew coag negative staph from one sample most likely contamination , continue vancomycin with cefepime empiric coverage for now (3) UTI (urinary tract infection) Assessment & Plan: await urine culture and continue cefepime empirically (4) DL (acute kidney injury) Assessment & Plan: due to the above , continue hydration, avoid nephrotoxic meds, monitor UOP (5) Encephalopathy acute Assessment & Plan: metabolic VS toxic VS sepsis related , improving. continue neuro check and tele monitor Subjective Constitutional: Reports: no symptoms HEENT: Reports: no symptoms Respiratory: Reports: productive cough, other - wheezing Cardiovascular: Reports: no symptoms Gastrointestinal/Abdominal: Reports: no symptoms Genitourinary: Reports: no symptoms Neurologic: Reports: no symptoms Psychiatric: Reports: no symptoms Skin: Reports: no symptoms Endocrine: Reports: no symptoms Hematologic: Reports: no symptoms Musculoskeletal: Reports: no symptoms Allergies: Coded Allergies: No Known Allergies (Unverified , 01/21/18) Subjective patient is more awake and alert, no fever , or chills, has mild cough , but no SOB, no nausea or vomiting , approved for thicken nector diet Objective Vital Signs Last 24 Hour Vital Signs Date Time Temp Pulse Resp B/P (MAP) Pulse Ox O2 Delivery O2 Flow Rate FiO2 03/13/18 09:16 74 116/64 03/13/18 08:00 116 03/13/18 08:00 97.0 113 20 146/72 97 Room Air 97.0 03/13/18 04:00 97.7 73 20 116/64 100 Room Air 97.7 03/13/18 04:00 74 03/13/18 00:00 97.2 87 20 130/78 98 Room Air 97.2 03/13/18 00:00 94 03/12/18 20:00 96 03/12/18 20:00 98.2 109 20 145/78 98 Nasal Cannula 2.0 98.2 03/12/18 19:30 98 Nasal Cannula 2.0 28 03/12/18 19:30 Nasal Cannula 2.0 28 03/12/18 16:00 106 03/12/18 16:00 97.7 106 20 119/77 98 Nasal Cannula 2.0 97.7 Height (Feet): 5 Height (Inches): 8.00 Weight (Pounds): 119 General Appearance: WD/WN, no acute distress HEENT: normocephalic, atraumatic, anicteric, mucous membranes moist, PERRL Respiratory/Chest: chest wall non-tender, no respiratory distress, no accessory muscle use, decreased breath sounds, expiratory wheezing Cardiovascular: normal peripheral pulses, normal rate, regular rhythm, no gallop/murmur, no JVD Abdomen: normal bowel sounds, soft, non tender, no organomegaly, non distended , no mass, no scars Extremities: no cyanosis, no clubbing Skin: no rash, no lesions, no ulcers Neurologic/Psychiatric: alert, responsive Lymphatic: no neck adenopathy, no groin adenopathy Musculoskeletal: normal muscle bulk, no effusion Laboratory Tests Test 03/13/18 08:18 White Blood Count 5.3 K/UL (4.8-10.8) Red Blood Count 3.91 M/UL (4.20-5.40) L Hemoglobin 11.0 G/DL (12.0-16.0) L Hematocrit 33.2 % (37.0-47.0) L Mean Corpuscular Volume 85 FL (80-99) Mean Corpuscular Hemoglobin 28.1 PG (27.0-31.0) Mean Corpuscular Hemoglobin Concent 33.1 G/DL (32.0-36.0) Red Cell Distribution Width 14.1 % (11.6-14.8) Platelet Count 468 K/UL (150-450) H Mean Platelet Volume 6.5 FL (6.5-10.1) Neutrophils (%) (Auto) 70.2 % (45.0-75.0) Lymphocytes (%) (Auto) 21.4 % (20.0-45.0) Monocytes (%) (Auto) 7.7 % (1.0-10.0) Eosinophils (%) (Auto) 0.0 % (0.0-3.0) Basophils (%) (Auto) 0.7 % (0.0-2.0) Sodium Level 150 MMOL/L (136-145) H Potassium Level 3.3 MMOL/L (3.5-5.1) L Chloride Level 115 MMOL/L (98-107) H Carbon Dioxide Level 24 MMOL/L (21-32) Anion Gap 11 mmol/L (5-15) Blood Urea Nitrogen 24 mg/dL (7-18) H Creatinine 0.9 MG/DL (0.55-1.30) Estimat Glomerular Filtration Rate > 60 mL/min (>60) Glucose Level 148 MG/DL (74-106) H Calcium Level 9.5 MG/DL (8.5-10.1) Current Medications Medications (Trade) Dose Ordered Sig/Dae Route PRN Reason Start Time Stop Time Status Last Admin Dose Admin Acetaminophen (Tylenol) 650 mg Q6H PRN ORAL Mild Pain/Temp > 100.5 03/10/18 09:45 04/09/18 09:44 03/10/18 16:56 Acetaminophen/ Codeine Phosphate (Tylenol #3) 1 tab Q6H PRN ORAL Moderate Pain (Pain Scale 4-6) 03/09/18 10:45 03/16/18 10:44 03/12/18 13:42 Amlodipine Besylate (Norvasc) 5 mg DAILY ORAL 03/10/18 09:00 04/09/18 08:59 03/13/18 09:16 Benztropine Mesylate (Cogentin) 2 mg BID ORAL 03/12/18 09:00 04/08/18 17:59 03/13/18 09:16 Dextrose (Dextrose 50%) 25 ml STAT PRN IV Hypoglycemia 03/11/18 16:15 04/10/18 16:14 Dextrose (Dextrose 50%) 50 ml STAT PRN IV Hypoglycemia 03/11/18 16:15 04/10/18 16:14 Dextrose/ Electrolytes 1,000 ml @ 50 mls/hr Q20H IV 03/12/18 09:00 04/11/18 08:59 03/13/18 05:30 Docusate Sodium (Colace) 100 mg TWICE A DAY ORAL 03/12/18 09:00 04/09/18 17:59 03/13/18 09:16 Insulin Aspart (NovoLOG) Q6HR SUBQ 03/11/18 18:00 04/10/18 17:59 03/13/18 12:03 Latanoprost (Xalatan) 1 drop BEDTIME BOTH EYES 03/09/18 21:00 04/08/18 20:59 03/12/18 20:24 Levetiracetam (Keppra) 750 mg Q12HR ORAL 03/09/18 21:00 04/08/18 20:59 03/13/18 09:15 Olanzapine (ZyPREXA) 5 mg BEDTIME ORAL 03/09/18 21:00 04/08/18 20:59 03/12/18 20:24 Pantoprazole (Protonix) 40 mg DAILY ORAL 03/10/18 09:00 04/09/18 08:59 03/13/18 09:15 Pregabalin (Lyrica) 75 mg DAILY ORAL 03/10/18 09:00 04/09/18 08:59 03/13/18 09:17 Liv Graham M.D. Mar 13, 2018 13:31
[2018-03-13 16:00] VITALS: BP 132/68
[2018-03-13 18:30] LABS: ANION GAP 7 mmol/L (5-15); BLOOD UREA NITROGEN 20 mg/dL (7-18); CALCIUM 9.2 MG/DL (8.5-10.1); CARBON DIOXIDE 26 MMOL/L (21-32); CHLORIDE 113 MMOL/L (98-107); CREATININE 0.8 MG/DL (0.55-1.30); POTASSIUM 4.2 MMOL/L (3.5-5.1); SODIUM 146 MMOL/L (136-145)
[2018-03-13 20:00] VITALS: BP 127/68
[2018-03-13] MEDS: Latanoprost 0.005% Opth 2.5ml Soln BOTH EYES SCH (21:22)
[2018-03-14] VITALS: BP 136/74
[2018-03-14 04:00] VITALS: BP 119/75
[2018-03-14] MEDS: NovoLOG Insulin Flexpen SUBQ SCH ×3 (06:00→11:58)
[2018-03-14 08:00] VITALS: BP 131/77
--- NOTE | 2018-03-14 08:40 | Pulmonology Progress Note ---
Assessment/Plan Assessment/Plan 1. Seizure disorder. 2. Recent gastrointestinal bleed. 3. Status post blood transfusion. 4. Anemia. 5. Urinary tract infection. None seen on culture. 6. Chronic encephalopathy. 7. Sinus tachycardia. 8. MRSA nares DISCUSSION: Continue Keppra 750 mg b.i.d. She is DNR/DNI. seen by ID. Has MRSA sputum.. colonized; CXR is clear. Status post endoscopy. Tolerating pureed diet Will dc to SNF today Will dc abx; urine culture negative; no fever or WBC CXR clear; sputum is colonized Bactroban for nares Subjective Interval Events: No changes. labs normal now Constitutional: Reports: no symptoms HEENT: Repors: no symptoms Respiratory: Reports: no symptoms Cardiovascular: Reports: no symptoms Gastrointestinal/Abdominal: Reports: no symptoms Allergies: Coded Allergies: No Known Allergies (Unverified , 01/21/18) Objective Last 24 Hour Vital Signs Date Time Temp Pulse Resp B/P (MAP) Pulse Ox O2 Delivery O2 Flow Rate FiO2 03/14/18 05:08 76 03/14/18 04:00 97.7 87 18 119/75 100 Room Air 97.7 03/14/18 00:00 98.2 88 20 136/74 99 Room Air 98.2 03/14/18 00:00 92 03/13/18 20:00 98.2 100 19 127/68 100 Room Air 98.2 03/13/18 20:00 105 03/13/18 16:00 91 03/13/18 16:00 97.9 98 20 132/68 100 Room Air 97.9 03/13/18 12:00 98.1 94 18 137/78 98 Room Air 98.1 03/13/18 12:00 108 03/13/18 09:16 74 116/64 Intake and Output 03/13/18 03/14/18 19:00 07:00 Intake Total 480 ml 120 ml Output Total 250 ml 1025 ml Balance 230 ml -905 ml Intake Oral 480 ml 120 ml Output Urine Total 250 ml 1025 ml # Bowel Movements 1 General Appearance: no acute distress HEENT: normocephalic Respiratory/Chest: chest wall non-tender, lungs clear Cardiovascular: normal peripheral pulses, normal rate Abdomen: normal bowel sounds Laboratory Tests 03/13/18 18:00: Sodium Level 146H, Potassium Level 4.2, Chloride Level 113H, Carbon Dioxide Level 26, Anion Gap 7, Blood Urea Nitrogen 20H, Creatinine 0.8, Estimat Glomerular Filtration Rate > 60, Glucose Level 122H, Calcium Level 9.2 Current Medications Medications (Trade) Dose Ordered Sig/Dae Route PRN Reason Start Time Stop Time Status Last Admin Dose Admin Acetaminophen (Tylenol) 650 mg Q6H PRN ORAL Mild Pain/Temp > 100.5 03/10/18 09:45 04/09/18 09:44 03/10/18 16:56 Acetaminophen/ Codeine Phosphate (Tylenol #3) 1 tab Q6H PRN ORAL Moderate Pain (Pain Scale 4-6) 03/09/18 10:45 03/16/18 10:44 03/12/18 13:42 Amlodipine Besylate (Norvasc) 5 mg DAILY ORAL 03/10/18 09:00 04/09/18 08:59 03/13/18 09:16 Benztropine Mesylate (Cogentin) 2 mg BID ORAL 03/12/18 09:00 04/08/18 17:59 03/13/18 17:34 Dextrose (Dextrose 50%) 25 ml STAT PRN IV Hypoglycemia 03/11/18 16:15 04/10/18 16:14 Dextrose (Dextrose 50%) 50 ml STAT PRN IV Hypoglycemia 03/11/18 16:15 04/10/18 16:14 Dextrose/ Electrolytes 1,000 ml @ 100 mls/hr Q10H IV 03/14/18 09:00 04/11/18 08:59 Docusate Sodium (Colace) 100 mg TWICE A DAY ORAL 03/12/18 09:00 04/09/18 17:59 03/13/18 17:34 Insulin Aspart (NovoLOG) Q6HR SUBQ 03/11/18 18:00 04/10/18 17:59 03/13/18 12:03 Latanoprost (Xalatan) 1 drop BEDTIME BOTH EYES 03/09/18 21:00 04/08/18 20:59 03/13/18 21:22 Levetiracetam (Keppra) 750 mg Q12HR ORAL 03/09/18 21:00 04/08/18 20:59 03/13/18 21:22 Olanzapine (ZyPREXA) 5 mg BEDTIME ORAL 03/09/18 21:00 04/08/18 20:59 03/13/18 21:22 Pantoprazole (Protonix) 40 mg DAILY ORAL 03/10/18 09:00 04/09/18 08:59 03/13/18 09:15 Pregabalin (Lyrica) 75 mg DAILY ORAL 03/10/18 09:00 04/09/18 08:59 03/13/18 09:17 Elmer Pang MD Mar 14, 2018 08:40
[2018-03-14] MEDS ORDERED: D5W w/KCl 20mEq 1,000 ML IV SCH (09:00)
[2018-03-14] MEDS: Benztropine 1mg tab ORAL SCH (09:23)
[2018-03-14] MEDS: Docusate 100mg cap ORAL SCH (09:28)
[2018-03-14] MEDS: Lyrica 75mg cap ORAL SCH (09:30)
--- NOTE | 2018-03-14 10:24 | GI Progress Note ---
Assessment/Plan Problems: (1) Alzheimer's dementia ICD Codes: G30.9 - Alzheimer's disease, unspecified; F02.80 - Dementia in other diseases classified elsewhere without behavioral disturbance SNOMED: 81241695 (2) LFTs abnormal ICD Codes: R94.5 - Abnormal results of liver function studies SNOMED: 251993355 (3) Altered mental status ICD Codes: R41.82 - Altered mental status, unspecified SNOMED: 740591454 (4) Anemia ICD Codes: D64.9 - Anemia, unspecified SNOMED: 596408411 (5) Hematemesis ICD Codes: K92.0 - Hematemesis SNOMED: 3862458 Status: stable Status Narrative Discussed with Dr. Salamanca. Assessment/Plan Assessment - UGIB - Gastric ulcer - gastritis - OBS - Anemia Recommendation - okay for DC per GI standpoint - PPI - cautious PO intake given swallow result - on diet, tolerating - Elevated HOB - Monitor CBC Subjective Subjective wants Objective Last 24 Hour Vital Signs Date Time Temp Pulse Resp B/P (MAP) Pulse Ox O2 Delivery O2 Flow Rate FiO2 03/14/18 09:30 97.7 03/14/18 09:29 117 131/77 03/14/18 08:00 97.7 117 18 131/77 100 Room Air 2.0 28 97.7 03/14/18 05:08 76 03/14/18 04:00 97.7 87 18 119/75 100 Room Air 97.7 03/14/18 00:00 98.2 88 20 136/74 99 Room Air 98.2 03/14/18 00:00 92 03/13/18 20:00 98.2 100 19 127/68 100 Room Air 98.2 03/13/18 20:00 105 03/13/18 16:00 91 03/13/18 16:00 97.9 98 20 132/68 100 Room Air 97.9 03/13/18 12:00 98.1 94 18 137/78 98 Room Air 98.1 03/13/18 12:00 108 Intake and Output 03/13/18 03/14/18 19:00 07:00 Intake Total 480 ml 120 ml Output Total 250 ml 1025 ml Balance 230 ml -905 ml Intake Oral 480 ml 120 ml Output Urine Total 250 ml 1025 ml # Bowel Movements 1 Laboratory Tests Test 03/13/18 18:00 03/14/18 09:25 Sodium Level 146 MMOL/L (136-145) H Pending Potassium Level 4.2 MMOL/L (3.5-5.1) Pending Chloride Level 113 MMOL/L (98-107) H Pending Carbon Dioxide Level 26 MMOL/L (21-32) Pending Anion Gap 7 mmol/L (5-15) Blood Urea Nitrogen 20 mg/dL (7-18) H Pending Creatinine 0.8 MG/DL (0.55-1.30) Pending Estimat Glomerular Filtration Rate > 60 mL/min (>60) Pending Glucose Level 122 MG/DL (74-106) H Pending Calcium Level 9.2 MG/DL (8.5-10.1) Pending Height (Feet): 5 Height (Inches): 8.00 Weight (Pounds): 119 General Appearance: WD/WN, no apparent distress, alert Cardiovascular: normal rate Respiratory/Chest: normal breath sounds, no respiratory distress Abdominal Exam: normal bowel sounds, non tender, soft Extremities: normal range of motion, non-tender Alejandrina Lorenz N.P. Mar 14, 2018 10:24
[2018-03-14 10:42] LABS: ANION GAP 11 mmol/L (5-15); BLOOD UREA NITROGEN 16 mg/dL (7-18); CALCIUM 8.6 MG/DL (8.5-10.1); CARBON DIOXIDE 22 MMOL/L (21-32); CHLORIDE 107 MMOL/L (98-107); CREATININE 0.8 MG/DL (0.55-1.30); POTASSIUM 3.4 MMOL/L (3.5-5.1); SODIUM 139 MMOL/L (136-145)
[2018-03-14 12:00] VITALS: BP 110/60
--- NOTE | 2018-03-14 14:14 | Infectious Diseases Prog Note ---
Assessment/Plan Problems: (1) HCAP (healthcare-associated pneumonia) Assessment & Plan: due to MRSA, and gram negative rods, suspect aspiration ? already on vancomycin and cefepime, pending identification , monitor CXR , (2) Sepsis Assessment & Plan: blood culture grew coag negative staph from one sample most likely contamination , continue vancomycin with cefepime empiric coverage for now (3) UTI (urinary tract infection) Assessment & Plan: await urine culture and continue cefepime empirically (4) DL (acute kidney injury) Assessment & Plan: due to the above , continue hydration, avoid nephrotoxic meds, monitor UOP (5) Encephalopathy acute Assessment & Plan: metabolic VS toxic VS sepsis related , improving. continue neuro check and tele monitor Subjective Constitutional: Reports: no symptoms HEENT: Reports: no symptoms Respiratory: Reports: productive cough Breasts: Reports: no symptoms Cardiovascular: Reports: no symptoms Gastrointestinal/Abdominal: Reports: no symptoms Genitourinary: Reports: no symptoms Neurologic: Reports: no symptoms Psychiatric: Reports: no symptoms Skin: Reports: no symptoms Endocrine: Reports: no symptoms Hematologic: Reports: no symptoms Musculoskeletal: Reports: no symptoms Allergies: Coded Allergies: No Known Allergies (Unverified , 01/21/18) Subjective patient is more awake and alert, no fever , or chills, has mild cough , but no SOB, no nausea or vomiting , approved for thicken nector diet Objective Vital Signs Last 24 Hour Vital Signs Date Time Temp Pulse Resp B/P (MAP) Pulse Ox O2 Delivery O2 Flow Rate FiO2 03/14/18 12:00 97.7 88 18 110/60 100 Room Air 2.0 28 97.7 03/14/18 10:29 97.7 03/14/18 09:30 97.7 03/14/18 09:29 117 131/77 03/14/18 08:00 97.7 117 18 131/77 100 Room Air 2.0 28 97.7 03/14/18 08:00 115 03/14/18 05:08 76 03/14/18 04:00 97.7 87 18 119/75 100 Room Air 97.7 03/14/18 00:00 98.2 88 20 136/74 99 Room Air 98.2 03/14/18 00:00 92 03/13/18 20:00 98.2 100 19 127/68 100 Room Air 98.2 03/13/18 20:00 105 03/13/18 16:00 91 03/13/18 16:00 97.9 98 20 132/68 100 Room Air 97.9 Height (Feet): 5 Height (Inches): 8.00 Weight (Pounds): 119 General Appearance: WD/WN, no acute distress HEENT: normocephalic, atraumatic, anicteric, mucous membranes moist Respiratory/Chest: chest wall non-tender, lungs clear, normal breath sounds, no respiratory distress, no accessory muscle use Cardiovascular: normal peripheral pulses, normal rate, regular rhythm, no gallop/murmur, no JVD Abdomen: normal bowel sounds, soft, non tender, no organomegaly, non distended , no mass, no scars Extremities: no cyanosis, no clubbing Skin: no rash, no lesions, no ulcers Neurologic/Psychiatric: alert, oriented x 3 Lymphatic: no neck adenopathy, no groin adenopathy Musculoskeletal: normal muscle bulk Laboratory Tests Test 03/13/18 18:00 03/14/18 09:25 Sodium Level 146 MMOL/L (136-145) H 139 MMOL/L (136-145) Potassium Level 4.2 MMOL/L (3.5-5.1) 3.4 MMOL/L (3.5-5.1) L Chloride Level 113 MMOL/L (98-107) H 107 MMOL/L (98-107) Carbon Dioxide Level 26 MMOL/L (21-32) 22 MMOL/L (21-32) Anion Gap 7 mmol/L (5-15) 11 mmol/L (5-15) Blood Urea Nitrogen 20 mg/dL (7-18) H 16 mg/dL (7-18) Creatinine 0.8 MG/DL (0.55-1.30) 0.8 MG/DL (0.55-1.30) Estimat Glomerular Filtration Rate > 60 mL/min (>60) > 60 mL/min (>60) Glucose Level 122 MG/DL (74-106) H 132 MG/DL (74-106) H Calcium Level 9.2 MG/DL (8.5-10.1) 8.6 MG/DL (8.5-10.1) Current Medications Medications (Trade) Dose Ordered Sig/Dae Route PRN Reason Start Time Stop Time Status Last Admin Dose Admin Acetaminophen (Tylenol) 650 mg Q6H PRN ORAL Mild Pain/Temp > 100.5 03/10/18 09:45 04/09/18 09:44 03/10/18 16:56 Acetaminophen/ Codeine Phosphate (Tylenol #3) 1 tab Q6H PRN ORAL Moderate Pain (Pain Scale 4-6) 03/09/18 10:45 03/16/18 10:44 03/12/18 13:42 Amlodipine Besylate (Norvasc) 5 mg DAILY ORAL 03/10/18 09:00 04/09/18 08:59 03/14/18 09:29 Benztropine Mesylate (Cogentin) 2 mg BID ORAL 03/12/18 09:00 04/08/18 17:59 03/14/18 09:23 Dextrose (Dextrose 50%) 25 ml STAT PRN IV Hypoglycemia 03/11/18 16:15 04/10/18 16:14 Dextrose (Dextrose 50%) 50 ml STAT PRN IV Hypoglycemia 03/11/18 16:15 04/10/18 16:14 Dextrose/ Electrolytes 1,000 ml @ 100 mls/hr Q10H IV 03/14/18 09:00 04/11/18 08:59 03/14/18 09:22 Docusate Sodium (Colace) 100 mg TWICE A DAY ORAL 03/12/18 09:00 04/09/18 17:59 03/14/18 09:28 Insulin Aspart (NovoLOG) Q6HR SUBQ 03/11/18 18:00 04/10/18 17:59 03/13/18 12:03 Latanoprost (Xalatan) 1 drop BEDTIME BOTH EYES 03/09/18 21:00 04/08/18 20:59 03/13/18 21:22 Levetiracetam (Keppra) 750 mg Q12HR ORAL 03/09/18 21:00 04/08/18 20:59 03/14/18 09:22 Olanzapine (ZyPREXA) 5 mg BEDTIME ORAL 03/09/18 21:00 04/08/18 20:59 03/13/18 21:22 Pantoprazole (Protonix) 40 mg DAILY ORAL 03/10/18 09:00 04/09/18 08:59 03/14/18 09:30 Pregabalin (Lyrica) 75 mg DAILY ORAL 03/10/18 09:00 04/09/18 08:59 03/14/18 09:30 Liv Graham M.D. Mar 14, 2018 14:14
--- NOTE | 2018-03-15 18:31 | Discharge Summary ---
Discharge Summary Hospital Course Date of Admission Mar 09, 2018 at 06:07 Date of Discharge Mar 14, 2018 at 14:35 Admitting Diagnosis Altered mental status,encephalopathy HPI Patti Villa is a 67 year old female who was admitted on Mar 09, 2018 at 06: 07 for Altered Mental Status, ENCEPHALOPATHY Hospital Course [id number] Discharge Discharge Disposition Patient was discharged to [facility] (04) Elayne Damon NP Mar 15, 2018 18:31
--- NOTE | 2018-03-15 19:45 | Discharge Summary 2 SIG ---
DATE OF ADMISSION: 03/09/2018 DATE OF DISCHARGE: 03/14/2018 CONSULTANTS: 1. Liv Graham M.D. 2. Naresh Salamanca M.D. BRIEF HOSPITAL COURSE: The patient is a 67-year-old female, alf resident, was brought to the hospital for altered mental status. The patient was noted to have change in mental status and had hematemesis. The patient cannot provide a history. She was recently at [facility] and received blood transfusion. She is DNR with documented POLST. On evaluation at ED, WBC was 25, hemoglobin 12, and platelet count was elevated. She had creatinine of 1.4 and urinalysis showed evidence of pyuria. On arrival to ED, she was lethargic and shortly after, had tonic-clonic seizure activity. She was started on Keppra and was given Ativan. She was then admitted for seizure disorder and encephalopathy. Dr. Salamanca was consulted for evaluation of hematemesis. The patient had an NG tube with no output. She had leukocytosis and was started on cefepime and vancomycin. She was given IV hydration. She underwent EGD on 03/11/2018 with findings of two small shallow gastric ulcerations and gastritis. She was given proton pump inhibitors. NG tube was discontinued and was started on p.o. intake. Blood culture grew coagulase-negative Staph. Sputum culture with MRSA and Gram-negative bacillus. The patient was tolerating pureed diet. Urine culture was negative. Antibiotics were discontinued. Blood culture possibly contaminant. The patient already received cefepime and vancomycin. The patient was discharged back to alf. FINAL DIAGNOSES: 1. Seizure disorder. 2. Recent gastrointestinal bleed. 3. s/p EGD. 4. Anemia. 5. Possible urinary tract infection. 6. Chronic encephalopathy. 7. Sinus tachycardia. 8. Methicillin-resistant Staphylococcus aureus in naris. 9. Healthcare-associated pneumonia due to methicillin-resistant Staphylococcus aureus. 10. Sepsis. 11. Acute kidney injury. 12. Acute encephalopathy. 13. Abnormal liver function tests. 14. Alzheimer's dementia. 15. Gastritis with negative Helicobacter pylori. DISPOSITION: The patient was discharged back to alf rehabilitation center [facility]. DISCHARGE MEDICATIONS: Refer to medication list. Continue with Bactroban nasal b.i.d. for 14 days. Elmer Pang M.D. I have been assigned to dictate discharge summary on this account and I was not involved in the patient's management. Elayne Damon N.P. DR: SHANIA JOB#: [id number] CC: JOSUÉ
--- NOTE | 2018-04-08 10:17 | Physician Query ---
--------- THIS DOCUMENT IS A PERMANENT PART OF THE MEDICAL RECORD --------- PLEASE COMPLETE DOCUMENT BEFORE SIGNING Dear Dr. Pang Date: 04/08/18 Sales Representative Facility Services/CDS Name: Gudelia Roland, CCS Exercise your independent professional judgment when responding to the query. Questions asked do not imply a particular answer is desired or expected. We greatly appreciate your clarification on this issue. CLINICAL DOCUMENTATION STATES:DC Summary states:The patient is a 67-year-old female, [facility] resident, was brought to the hospital for altered mental status. The patient was noted to have change in mental status and had hematemesis.Blood culture grew coagulase-negative Staph. Sputum culture with MRSA and Gram-negative bacillus. The patient was tolerating pureed diet. Urine culture was negative. Antibiotics were discontinued. Blood culture possibly contaminant. The patient already received cefepime and vancomycin. CLINICAL FINDINGS SHOW: WBC - 03/09 13.2, 03/10 10.2, 03/11 7.4, 03/12 4.5, 5.3 Clarification is needed for one (or more) of the following conditions in order to accurately assign the "present on admission' indicator. Please choose the answer that best indicates whether the associated condition was present at the time of the order for inpatient admission. Thank you. DIAGNOSIS: Sepsis Sepsis ( ) Confirmed DX ( ) Not confirmed If confirmed was the sepsis: Present on admission? [] YES [] NO [] Clinically Undeterminable Please also document in your Progress Notes and/or Discharge Summary and indicate if the condition was present on admission. Elmer Pang M.D. Date & [facility]
--- NOTE | 2018-04-27 00:59 | Physician Query ---
PLEASE COMPLETE DOCUMENT BEFORE SIGNING Dear Dr. Pang Date: 04/26/18 Spaghetti Machine Operator/CDS Name: Gudelia Roland CCS Exercise your independent professional judgment when responding to the query. Questions asked do not imply a particular answer is desired or expected. We greatly appreciate your clarification on this issue. CLINICAL DOCUMENTATION STATES:DC Summary states:The patient is a 67-year-old female, prison resident, was brought to the hospital for altered mental status. The patient was noted to have change in mental status and had hematemesis.Blood culture grew coagulase-negative Staph. Sputum culture with MRSA and Gram-negative bacillus. The patient was tolerating pureed diet. Urine culture was negative. Antibiotics were discontinued. Blood culture possibly contaminant. The patient already received cefepime and vancomycin. CLINICAL FINDINGS SHOW: WBC - 03/09 13.2, 03/10 10.2, 03/11 7.4, 03/12 4.5, 5.3 Clarification is needed for one (or more) of the following conditions in order to accurately assign the "present on admission' indicator. Please choose the answer that best indicates whether the associated condition was present at the time of the order for inpatient admission. Thank you. DIAGNOSIS: Sepsis Sepsis ( x ) Confirmed DX ( ) Not confirmed If confirmed DX, was sepsis: Present on admission? [x] YES [] NO [] Clinically Undeterminable Please also document in your Progress Notes and/or Discharge Summary and indicate if the condition was present on admission. Elmer Pang M.D. [facility]
== END 2018-03-14 14:35 | DRG 871 ==
LOC: EDBD 04:08 → EMR 04:24 → EDBEDREQ 05:21 → 2E 06:07 → EDBEDREQ 06:23
PROC: 0DD68ZX Extraction of Stomach, Via Natural or Artificial Opening Endoscopic, Diagnostic (ICD-10-PCS; principal; 2018-03-11 10:12)
DX: A41.9 Sepsis, unspecified organism (principal); G93.40 Encephalopathy, unspecified; J15.212 Pneumonia due to Methicillin resistant Staphylococcus aureus; N39.0 Urinary tract infection, site not specified; K92.2 Gastrointestinal hemorrhage, unspecified; N17.9 Acute kidney failure, unspecified; G40.909 Epilepsy, unspecified, not intractable, without status epilepticus; D64.9 Anemia, unspecified; K29.40 Chronic atrophic gastritis without bleeding; K25.9 Gastric ulcer, unspecified as acute or chronic, without hemorrhage or perforation; G30.9 Alzheimer's disease, unspecified; F02.80 Dementia in other diseases classified elsewhere, unspecified severity, without behavioral disturbance, psychotic disturbance, mood disturbance, and anxiety; E86.0 Dehydration; Z66 Do not resuscitate; E11.9 Type 2 diabetes mellitus without complications; F09 Unspecified mental disorder due to known physiological condition
CPT/HCPCS: 36415; 71045; 74018; 80048; 80053; 80202; 80299; 81003; 82378; 82550; 82553; 82607; 82728; 82746; 82962; 83036; 83540; 83550; 83605; 84439; 84443; 84484; 85025; 85044; 85610; 85730; 86850; 86900; 86901; 87040; 87070; 87081; 87086; 87181; 87205; 93005; 94003; 94150; 94760; 99285; J1815; J8499